=== PATIENT | female | born 1950 | race African-American/Black ===

== ENCOUNTER 2017-03-07 16:23 | Inpatient (IN) ==
[2017-03-07] MEDS ORDERED: LACTATED RINGERS 1,000 ML IV ONE (16:47)
--- NOTE | 2017-03-07 16:53 | EKG Report ---
Stationary ECG Study [facility] ER Test Date: 03/07/2017 4:42:35 PM Pat Name: LUIS FIERRO Department: Room: Gender: F Cargo Router: : 1950 Requested by: Zachery Sanford Order Number: [id number] Reading MD: EBEN SAENZ Intervals [place] Rate: 62 P: 75 [place]: 136 QRS: 8 QRSD: 98 T: 185 QT: 432 QTc: 437 Interpretive Statements SINUS RHYTHM at 62 bpm LEFT VENTRICULAR HYPERTROPHY AND ST-T CHANGE EARLY REPOLARIZATION Electronically Signed On 03-08-17 08:18:24 CDT by EBEN SAENZ [email or web address]
[2017-03-07 16:57] LABS: Basophils % 0.3 % (0.0-0.8); Eosinophils # 0.1 10*3/uL (0.0-0.87); Eosinophils % 1.2 % (0.00-10.9); Hematocrit 30.2 VOL% (35.7-47.0); Hemoglobin 10.1 GM/DL (12.0-16.0); Immature Granulocytes % 0.7 %; Immature Granulocytes Absolute 0.05 #; Lymphocytes # 1.2 10*3/uL (1.4-4.0); Lymphocytes % 16.7 % (21.3-54.2); Mean Corpuscular HGB Conc 33.4 GM/DL (32-36); Mean Corpuscular Hemoglobin 29 PG (27-34); Mean Corpuscular Volume 86.5 FL (87-102); Mean Platelet Volume 10.4 FL (9.6-12.0); Monocytes # 0.2 10*3/uL (0.11-0.8); Monocytes % 3.5 % (1.7-12.7); Neutrophils # 5.4 10*3/uL (1.4-7.4); Neutrophils % 77.6 % (38.7-73.9); Platelet Count 289 T/CUMM (130-400); Red Blood Count 3.49 MC/CUMM (3.8-5.5)
--- NOTE | 2017-03-07 17:02 | XRay Report ---
XR chest 1V portable Indication: Syncope. Chest one view: No comparison. Heart size is normal. Mild atheromatous disease the aorta is present. Mediastinal contours unremarkable. There is diffuse peribronchial thickening noted, especially centrally, and the lungs are hypoinflated with bibasilar atelectasis. No focal pneumonia is seen. Impression: Airways disease such as bronchitis or viral syndrome. Pulmonary hypoinflation and borderline cardiomegaly. PROCEDURE INTERPRETED AT [facility] DEPARTMENT OF RADIOLOGY Final Report Signed by: Trevon Ho M.D.
[2017-03-07 17:08] LABS: INR 1.1; PT Patient Result 11.4 SECS; Partial Thromboplastin Time 28.7 SECS (0-40)
--- NOTE | 2017-03-07 17:12 | CT Report ---
CT head/brain wo con Indication: Loss of consciousness. CT BRAIN WITHOUT CONTRAST DLP: 1012 mGy*cm. One or more of the following dose reduction techniques was used: Automated exposure control, adjustment of the mA and/or kV according the patient size, or use of iterative reconstruction techniques. Comparison: None. Date of admission: 03/07/2017. Technique: Axial noncontrast CT images of the brain were obtained. Findings: There is a 22 mm cystic structure within the right occipital lobe, possibly from prior infarct. Significant patchy periventricular white matter hypodensity is present diffusely and there is generalized atrophy with prominence of the ventricular system. No hemorrhage, mass or mass effect. Cortical pierre-white junction and basal ganglia structures are well-defined. No bone lesions. Visualized sinuses and mastoid air cells are clear. Impression: 1. No acute intracranial pathology. 2. Generalized atrophy with ventricular prominence, and patchy chronic small vessel ischemic change of the deep white matter. 3. 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 If no history of stroke, consider nonemergent MRI for more thorough characterization. PROCEDURE INTERPRETED AT [facility] DEPARTMENT OF RADIOLOGY Final Report Signed by: Trevon Ho M.D.
[2017-03-07 17:29] LABS: Blood Urea Nitrogen 83 MG/DL (7-18); Calcium 8.6 MG/DL (8.5-10.1); Glucose 136 MG/DL (74-106); Osmolality,Calculated 307.3 MOS/KG (273-304); Potassium 5.2 MMOL/L (3.5-5.1); Sodium 141 MMOL/L (136-145); Troponin I Only 0.018 NG/ML (0.00-0.045)
--- NOTE | 2017-03-07 18:37 | Emergency Department Note ---
Priyank Busby Brittany, am scribing for, and in the presence of, Zachery Sanford MD 16 :49. Juvenal Busby Hans, MD, personally performed the services described in this documentation, ascribed by Yue Yost in my presence, and it is both accurate and complete 837 . Arrival - Arrival Chief Complaint: Syncope Stated Complaint: Syncope ED Nursing Triage Note: Per report patient was urinating and passed out after she stood up. No other complaints Mode of Arrival: Stretcher Limitations: No Limitations Source: Patient, RN Notes Reviewed Time Seen by Provider: 03/07/17 16:39 - History of Present Illness HPI Narrative: Patient is a 66 y/o black female presenting to the ED by EMS for further evaluation s/p syncopal episode that occurred today. Patient reports that she had just urinated and upon standing she had a syncopal episode. She confirms LOC , but does not know exact duration she was out. She reports that at current she feels fine as long as she is lying down. Denies having any chest pain, BLE edema , N/V, hematemesis, melena, hematochezia, hematuria, urgency, frequency, or dysuria. Patient reports that she has been eating and drinking normally. PMHx of IDDM and TIA. On monitor patient is hypotensive with a blood pressure reading of 84/42 mmHg. Patient has no other complaint/pain. Onset (ago): minute(s) Consistency: constant Date of Last Menstrual Period: Hyst Allergies/Adverse Reactions: Allergies Allergy/AdvReac Type Severity Reaction Status Date / Time No Known Allergies Allergy Unverified 03/07/17 16:32 Review of System - Review of System 12 point system: reviewed and no additional remarkable complaints except as stated - Review of System Constitutional: Absent: chills, fever, weakness Eyes: Absent: vision change Head/Ears/Nose/Throat: Absent: nasal drainage, sore throat Respiratory: Absent: respiratory distress Cardiovascular: Present: syncope. Absent: chest pain Gastrointestinal: Absent: abdominal pain, nausea, vomiting, diarrhea, constipation, hematemesis, melena, hematochezia Genitourinary female: Absent: dysuria, frequency, hematuria, urgency Musculoskeletal: Absent: arm pain, back pain, leg pain, neck pain Skin: Absent: rash Neurological: Absent: headache Psychiatric: Absent: anxiety, depression Medical,Surgical,& Family Hx - Medical History Neurology: History of: TIA Endocrine: History of: Diabetes Mellitus (IDDM) - Social History Smoking Status: Unknown if ever smoked Frequency of Alcohol Use: None Type of Drug Use: None Exam Vital Signs: Vital Signs Temperature 98.9 F 03/07/17 16:41 Pulse Rate 71 03/07/17 18:30 Respiratory Rate 16 03/07/17 18:30 Blood Pressure 123/81 03/07/17 18:30 O2 Sat by Pulse Oximetry 100 03/07/17 18:30 - General General appearance: alert, in no apparent distress - Head Head exam: Present: atraumatic, normocephalic, normal inspection - Eye Eye exam: Present: normal appearance, PERRL, EOMI - ENT ENT exam: Present: mucous membranes dry. Absent: mucous membranes moist - Neck Neck exam: Present: normal inspection, full ROM, trachea midline - Chest Chest inspection: Present: normal inspection, symmetric chest wall rise - Respiratory Respiratory exam: Present: normal lung sounds bilaterally - Cardiovascular Cardiovascular exam: Present: regular rate, normal rhythm, normal heart sounds. Absent: murmur - Abdominal Exam Abdominal exam: Present: soft, normal bowel sounds. Absent: tenderness - Extremities Exam Extremities exam: Present: normal inspection. Absent: pedal edema - Back Exam Back exam: Present: normal inspection - Neurological Exam Neurological exam: Present: alert, oriented X3, CN II-XII intact. Absent: motor sensory deficit - Psychiatric Psychiatric exam: Present: normal affect, normal mood - Skin Skin exam: Present: warm, dry Course Course Narrative: This patient had a creatinine of 6.2 with a BUN around 85 and her bicarb was only 18. It was unclear how much of this is acute versus chronic but she is not hyperventilating which would suggest an acute component to the acidosis. She does have a history of kidney disease and she was positive on her tilt test in the ER. She was given IV fluids and I discussed her volume depletion with hospitalist who agreed to come see her for admission. Results - Labs CBC & BMP: 03/07/17 16:49 03/07/17 16:49 Lab Results: I have reviewed the patients labs Labs: Laboratory Tests 03/07/17 03/07/17 16:49 16:49 WBC 7.0 RBC 3.49 L Hgb 10.1 L Hct 30.2 L MCV 86.5 L Plt Count 289 Neut % (Auto) 77.6 H Lymph % (Auto) 16.7 L Lymph # (Auto) 1.2 L INR 1.1 PT Patient/Control Mix 11.4 Circ Anticoag PTT 28.7 Laboratory Tests 03/07/17 16:49 D-Dimer, Quantitative 1.5 Laboratory Tests 03/07/17 16:49 Sodium 141 Potassium 5.2 H Chloride 115 H Carbon Dioxide 18 L BUN 83 H Creatinine 6.30 H Glucose 136 H Calculated Osmolality 307.3 H Total Creatine Kinase 101 CK-MB (CK-2) 2.0 Troponin I 0.018 - Diagnostic Findings Procedure: Chest x-ray: report reviewed by me (Airways disease such as bronchitis or viral syndrome. Pulmonary hypoinflation and borderline cardiomegaly.), CT: report reviewed by me (CT Head: 1. No acute intracranial pathology. 2. Generalized atrophy with ventricular prominence, and patchy chronic small vessel ischemic change of the deep white matter. 3. 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 ) Disposition Clinical Impression: Syncope due to orthostatic hypotension Case discussed with: patient, patient's family Disposition: Still a Patient Condition: Stable Time of Disposition: 18:37
--- NOTE | 2017-03-07 18:49 | Hospitalist History & Physical ---
<Ervin Severino - Last Filed: 03/07/17 18:26> Assessment and Plan - Time spent with patient Time spent with patient: Greater than 30 minutes (1) Syncopal episodes Status: Acute Assessment and plan: Admit to telemetry for observation and further evaluation. Orthostatics. Echocardiogram. VQ scan. MRI of brain w/o contrast. BNP. Current Visit: Yes (2) Hypertension Status: Acute Assessment and plan: Continue home medications. Current Visit: Yes (3) Diabetes mellitus Status: Acute Assessment and plan: Accu-cheks ACHS. SSI per protocol. Continue home medications. Hgb A1c Current Visit: Yes (4) Dementia Status: Acute Current Visit: Yes History of Present Illness Chief complaint: Syncopal episode History of present illness: Ms. Medina is a 66 year old -Swiss female with a past medical history significant for diabetes mellitus, hypertension, CVA, [place] with stent placement presents to the ED today via EMS for further evaluation of syncope having onset yesterday. The patient and her daughter who is at bedside reports the patient had a syncopal episode yesterday on the front porch and again today in the bathroom after urination. Patient states that she did not hit her head but continued to feel weak and dazed for a period of time. The daughter states that given the patient's medical history, she called EMS for assistance and further evaluation here at the hospital. The patient does admit to a history of recreational drug usage but states that she has not smoked in over 3 years and she quit drinking several years prior to that. On exam, the patient is sitting up in bed in no apparent distress. She confirms syncope. However she denies headache, blurry vision, chest pain, palpitations, abdominal pain, nausea vomiting, numbness or tingling, bright red blood per rectum, hematuria, edema. Lab work reveals: WBC 7.0, hemoglobin 10.1, hematocrit 30.2, MCV 86.5, sodium 145, potassium 5.2, chloride 115, carbon dioxide 18, BUN 83, Cr 6.30, glucose 136. Cardiac enzymes are negative. BNP 60. Case been discussed with both Dr. Sanford and Dr. Perla and the patient will be admitted to the telemetry service for further evaluation. Patient is a full code. Home medications have been reviewed and reconciled. Home Medications Medication Instructions Recorded Confirmed Type Clopidogrel [Plavix] 75 mg PO DAILY 03/07/17 03/07/17 History Doxazosin Mesylate 1 mg PO DAILY 03/07/17 03/07/17 History Gabapentin 200 mg PO Q12H 03/07/17 03/07/17 History Insulin Detemir [Levemir FlexPen] 18 unit SUBCUT BEDTIME 03/07/17 03/07/17 History Memantine HCl [Namenda XR] 14 mg PO DAILY 03/07/17 03/07/17 History Metoprolol Succinate 100 mg PO BEDTIME 03/07/17 03/07/17 History amLODIPine [Norvasc] 5 mg PO DAILY 03/07/17 03/07/17 History Allergies Allergy/AdvReac Type Severity Reaction Status Date / Time No Known Allergies Allergy Unverified 03/07/17 16:32 Medical,Surgical,& Family Hx - Medical History Endocrine: History of: Diabetes Mellitus (IDDM) - Family History Family History: Reports;: Family Diabetes, Family Hypertension, Family Stroke - Social History Smoking Status: Former smoker Have you smoked in the last 12 months: No Frequency of Alcohol Use: None Type of Drug Use: None Marital Status: Single Lives With:: Children Functional capacity: independent ambulation 12 point system: reviewed and no additional remarkable complaints except as stated Exam - Constitutional Vitals: Period Temp Pulse Resp BP Sys/Jean Pulse Ox Last 24 Hr 98.9 F-98.9 F 60-68 14-18 68-166/34-75 98-100 Exam: General appearance: normal weight, no acute distress - Head Head exam: Present: normocephalic, atraumatic - Eye Eye exam: Present: EOMI. Absent: conjunctival injection, nystagmus Pupils: Present: KRISTEN, normal accommodation - ENT ENT exam: Present: normal exam, normal external ear exam - Neck Neck exam: Present: normal inspection. Absent: lymphadenopathy, tenderness, thyromegaly - Respiratory Respiratory exam: Present: clear to auscultation bilaterally. Absent: rales, rhonchi, wheezes - Cardiovascular Cardiovascular exam: Present: regular rate and rhythm. Absent: carotid bruit, gallop, rubs - GI/Abdominal GI/Abdominal exam: Present: normal bowel sounds. Absent: ascites, distended, mass - Extremities Exam Extremities exam: Present: normal inspection, normal capillary refill. Absent: edema - Back Exam Back exam: Absent: CVA tenderness (L), CVA tenderness (R) - Neurological Exam Neurological exam: Present: alert, oriented X3, CN II-XII intact, reflexes normal - Psychiatric Psychiatric exam: Present: normal affect, normal mood - Skin Skin exam: Present: normal color, warm, dry Results - Labs CBC & BMP: 03/07/17 16:49 03/07/17 16:49 Lab Results: I have reviewed the past 24 hour labs <Michelle Perla - Last Filed: 03/08/17 13:00> Assessment and Plan (1) Syncope due to orthostatic hypotension Status: Acute Assessment and plan: ns bolus and hydrate Current Visit: Yes (2) Ataxia Status: Acute Assessment and plan: mri of brain Current Visit: Yes (3) Dementia Status: Acute Assessment and plan: cont namenda Current Visit: Yes (4) Diabetes mellitus Status: Acute Assessment and plan: hgb A1c 7.3, cont insulin Current Visit: Yes History of Present Illness History of present illness: Ms. Medina is a 66 year old female seen and examined. agree with above. Medical,Surgical,& Family Hx - Medical History Other: History of: Miscellaneous Medical Problems (history of cocaine) - Surgical History Reproductive Surgeries: Surgical HX of;: Hysterectomy - Constitutional Constitutional: Present: headache(s), weight loss. Absent: fever(s) - EENT Eyes: Present: blurry vision, loss of vision (left eye blind). Absent: diplopia Ears: Absent: decreased hearing, ear discharge Nose, mouth and throat: Present: headache(s). Absent: sore throat - Cardiovascular Cardiovascular: Absent: chest pain at rest, dyspnea - Respiratory Respiratory: Absent: cough, dyspnea, dyspnea on exertion - Gastrointestinal Gastrointestinal: Absent: constipation, diarrhea, nausea, vomiting - Genitourinary Genitourinary: Absent: difficulty urinating, dysuria - Neurological Neurological: Present: headache(s), memory loss, syncope. Absent: confusion - Psychiatric Psychiatric: Present: anxiety, depression - Endocrine Endocrine: Present: cold intolerance, fatigue - Hematologic/Lymphatic Hematologic/Lymphatic: Absent: easy bleeding, easy bruising Exam - Constitutional Vitals: Period Temp Pulse Resp BP Sys/Jean Pulse Ox Last 24 Hr 96.7 F-99.8 F 60-81 14-20 68-166/34-81 92-100 Results - Labs CBC & BMP: 03/08/17 03:19 03/08/17 03:19 - Diagnostic Findings Procedure: Chest x-ray: report reviewed by me (bronchitis), X-ray: report reviewed by me (v/Q no PE )
--- NOTE | 2017-03-07 20:06 | Nuclear Medicine Report ---
NM lung scan vent and per Indication: Shortness of breath. Comparison: Chest x-ray 03/07/2017. Technique: Ventilation scan of the lungs was performed. 40 mCi of technetium 99m labeled DTPA was administered in aerosolized form, following which planar imaging in the anterior, FAROESE, and CARBALLO projections was accomplished. Following this, 5 mCi technetium 99m labeled MAA was injected intravenously and perfusion scanning of the chest was performed in the anterior, FAROESE, and CARBALLO projections. Findings: No ventilation and no perfusion defects are demonstrated. Impression: 1. Normal study. The normal perfusion component essentially excludes pulmonary artery embolus. 03/07/2017 7:59 PM PROCEDURE INTERPRETED AT [facility] DEPARTMENT OF RADIOLOGY Final Report Signed by: Dr. Viral Ayala
[2017-03-07] MEDS ORDERED: ZALEPLON 5 MG CAPSULE PO PRN (20:18)
[2017-03-07] MEDS ORDERED: ENOXAPARIN 30 MG/0.3 ML SYRINGE SUBCUT SCH (20:18)
[2017-03-07] MEDS ORDERED: ONDANSETRON 4 MG/2 ML VIAL IV PRN (20:18)
[2017-03-07] MEDS ORDERED: GLUCAGON 1 MG VIAL IM PRN (20:18)
[2017-03-07] MEDS ORDERED: BISACODYL 5 MG TABLET PO PRN (20:18)
[2017-03-07] MEDS ORDERED: DEXTROSE 50% 25 GM/50 ML VIAL IV PRN (20:18)
[2017-03-07] MEDS ORDERED: ACETAMINOPHEN 325 MG TABLET PO PRN (20:18)
[2017-03-07 20:46] LABS: Free T4 (Free Thyroxine) 1.02 NG/DL (0.76-1.46); Thyroid Stimulating Hormone 1.16 uIU/ml (0.358-3.74)
--- NOTE | 2017-03-07 20:47 | EKG Report ---
Stationary ECG Study [facility] Test Date: 03/07/2017 8:44:44 PM Pat Name: LUIS FIERRO Department: Room: 286 Gender: F Cell Room Operator: : 1950 Requested by: Michelle Chisholm Order Number: [id number] Reading MD: EBEN SAENZ Intervals [place] Rate: 66 P: 74 [place]: 138 QRS: 0 QRSD: 105 T: 155 QT: 432 QTc: 445 Interpretive Statements SINUS RHYTHM at 66 bpm LEFT VENTRICULAR HYPERTROPHY WITH REPOLARIZATION ABNORMALITY Electronically Signed On 03-08-17 08:20:08 CDT by EBEN SAENZ [id number]
[2017-03-07] MEDS ORDERED: INSULIN GLARGINE 100 UNIT/ML SUBCUT SCH (21:00)
[2017-03-07] MEDS: SODIUM CHLORIDE 0.9% 1,000 ML IV SCH (21:42)
[2017-03-07] MEDS: INSULIN REGULAR 100 UNIT/ML SUBCUT SCH (21:43)
[2017-03-07] MEDS: GABAPENTIN 100 MG CAPSULE PO SCH (21:43)
[2017-03-08 05:11] LABS: Basophils % 0.3 % (0.0-0.8); Eosinophils # 0.1 10*3/uL (0.0-0.87); Eosinophils % 1.8 % (0.00-10.9); Hematocrit 25.8 VOL% (35.7-47.0); Hemoglobin 8.5 GM/DL (12.0-16.0); Immature Granulocytes % 0.5 %; Immature Granulocytes Absolute 0.03 #; Lymphocytes # 1.7 10*3/uL (1.4-4.0); Lymphocytes % 27.8 % (21.3-54.2); Mean Corpuscular HGB Conc 32.9 GM/DL (32-36); Mean Corpuscular Hemoglobin 28 PG (27-34); Mean Corpuscular Volume 85.4 FL (87-102); Mean Platelet Volume 11.1 FL (9.6-12.0); Monocytes # 0.5 10*3/uL (0.11-0.8); Monocytes % 8.1 % (1.7-12.7); Neutrophils # 3.9 10*3/uL (1.4-7.4); Neutrophils % 61.5 % (38.7-73.9); Platelet Count 265 T/CUMM (130-400); Red Blood Count 3.02 MC/CUMM (3.8-5.5); Red Cell Distribution Width 13.8 % (9.3-17.3); White Blood Count 6.3 T/CUMM (4-12)
[2017-03-08 06:01] LABS: Calcium 7.9 MG/DL (8.5-10.1); Osmolality,Calculated 304.3 MOS/KG (273-304); Potassium 4.8 MMOL/L (3.5-5.1); Risk Ratio 2.72; VLDL CHOLESTEROL 20.2 MG/DL
[2017-03-08] MEDS: SODIUM CHLORIDE 0.9% 1,000 ML IV SCH ×3 (06:47→15:26)
--- NOTE | 2017-03-08 09:05 | EKG Report ---
Stationary ECG Study [facility] Test Date: 03/08/2017 1:58:47 AM Pat Name: LUIS FIERRO Department: Room: 286 Gender: F Shop Hand: : 1950 Requested by: Michelle Chisholm Order Number: [id number] Reading MD: EBEN SAENZ Intervals [place] Rate: 63 P: 81 [place]: 140 QRS: 4 QRSD: 108 T: 171 QT: 423 QTc: 431 Interpretive Statements SINUS RHYTHM at 63 bpm EARLY REPOLARIZATION Electronically Signed On 03-08-17 12:50:54 CDT by EBEN SAENZ [email or web address]
[2017-03-08] MEDS: INSULIN REGULAR 100 UNIT/ML SUBCUT SCH ×4 (09:56→20:50)
[2017-03-08] MEDS: PANTOPRAZOLE 40 MG TABLET PO SCH (09:57)
[2017-03-08] MEDS: GABAPENTIN 100 MG CAPSULE PO SCH ×2 (09:57→20:49)
[2017-03-08] MEDS: CLOPIDOGREL 75 MG TABLET PO SCH (09:57)
[2017-03-08] MEDS: MEMANTINE 5 MG TABLET PO SCH ×2 (09:57→20:49)
[2017-03-08] MEDS ORDERED: SODIUM CHLORIDE 0.9% 500 ML IV ONE (14:37)
--- NOTE | 2017-03-08 14:39 | Hospitalist Progress Note ---
Assessment and Plan (1) Syncope due to orthostatic hypotension Status: Acute Assessment and plan: ns bolus and but change fluids to 1/2 ns with bicarb at 150 ml/hr Current Visit: Yes (2) Ataxia Status: Acute Assessment and plan: mri of brain cancelled as no information on her heart stent, most likely due to orthostasis, but will defer to Dr. Ponce Current Visit: Yes (3) Dementia Status: Acute Assessment and plan: cont namenda Current Visit: Yes (4) Diabetes mellitus Status: Acute Assessment and plan: hgb A1c 7.3, increase insulin Current Visit: Yes (5) Anemia Status: Acute Assessment and plan: stool for occult blood, protonix Current Visit: Yes (6) Acute renal failure Status: Acute Assessment and plan: renal us, consult Dr Murray, cont aggressive hydration. Current Visit: Yes Hospitalist: Subjective Interval history: patient feels better today. Patient had a stent several years back but we cannot obtain records. MRI will not do the head without knowing what type of stent she previously had. We will cancel the test. She was extremely orthostatic today with a blood pressure that went from 134-112. Exam - Constitutional Vitals: Period Temp Pulse Resp BP Sys/Jean Pulse Ox Last 24 Hr 96.7 F-99.8 F 60-81 14-20 68-166/34-81 92-100 Exam: Heart Rate-[RRR] Lungs-[CTAB] GI-[+bs soft, NT] Ext-[no edema] Neuro [Motor 5/5], [alert and oriented times 3] psych [normal mood and affect] General [no acute distress] Results - Labs CBC & BMP: 03/08/17 03:19 03/08/17 03:19 Lab Results: I have reviewed the past 24 hour labs
[2017-03-08] MEDS ORDERED: INSULIN GLARGINE 100 UNIT/ML SUBCUT SCH (14:45)
--- NOTE | 2017-03-08 15:47 | Neurology Consult Note ---
History of Present Illness History of present illness: Ms. Medina is a 66 year old right-handed -Thai lady with a past medical history significant for diabetes mellitus, hypertension, CVA, [place] with stent placement admitted to the hospital with syncopal episode 2. The patient and her daughter who is at bedside reports the patient had a syncopal episode before yesterday on the front porch and then again yesterday in the bathroom after urination. Patient states that she did not hit her head but continued to feel weak and dazed for a period of time. No generalized tonic-clonic activity reported. No tongue biting or urinary incontinence reported. The patient does admit to a history of recreational drug usage but states that she has not smoked in over 3 years and she quit drinking several years prior to that. She seems to be doing much better now and back to her baseline. CT of the head revealed no acute abnormalities. She was found to have significantly high BUN and creatinine. Patient is from [place] and recently moved to [place]. She does not have a primary care physician as yet. Home Medications Medication Instructions Recorded Confirmed Type Clopidogrel [Plavix] 75 mg PO DAILY 03/07/17 03/07/17 History Doxazosin Mesylate 1 mg PO DAILY 03/07/17 03/07/17 History Gabapentin 200 mg PO Q12H 03/07/17 03/07/17 History Insulin Detemir [Levemir FlexPen] 18 unit SUBCUT BEDTIME 03/07/17 03/07/17 History Memantine HCl [Namenda XR] 14 mg PO DAILY 03/07/17 03/07/17 History Metoprolol Succinate 100 mg PO BEDTIME 03/07/17 03/07/17 History amLODIPine [Norvasc] 5 mg PO DAILY 03/07/17 03/07/17 History Allergies Allergy/AdvReac Type Severity Reaction Status Date / Time No Known Allergies Allergy Unverified 03/07/17 16:32 12 point system: reviewed and no additional remarkable complaints except as stated Medical,Surgical,& Family Hx - Medical History Neurology: History of: TIA Endocrine: History of: Diabetes Mellitus (IDDM) Other: History of: Miscellaneous Medical Problems (history of cocaine) - Surgical History Reproductive Surgeries: Surgical HX of;: Hysterectomy - Family History Family History: Reports;: Family Diabetes, Family Hypertension, Family Stroke - Social History Smoking Status: Former smoker Frequency of Alcohol Use: None Type of Drug Use: None Exam - Constitutional Vitals: Period Temp Pulse Resp BP Sys/Jean Pulse Ox Last 24 Hr 96.7 F-99.8 F 60-81 14-20 68-166/34-81 92-100 Exam: GENERAL: Patient is in no acute distress. NECK: Neck is supple. There is no JVD. No carotid bruits present. No thyroid masses. CVS: First and second heart sounds are normal. There is no S3 present. Regular rate and rhythm. RESPIRATORY: Lungs are clear to auscultation without any rales or rhonchi. ABDOMEN: Soft and non-tender. Bowel sounds are present. There is no hepatosplenomegaly. EXT: There is no palpable edema. Peripheral pulses are present. Skin: No rashes Central Nervous system: General: Alert, awake and Oriented x 3 Speech: Fluent Comprehension: Intact and normal Facial expressions: Normal Cranial Nerves: CN1/Olfactory: Normal CN II/ Optic: Normal, Visual Perdomo unreliable CN III, and : KRISTEN & EOMI CN V: Normal & intact CN VII: face is symmetric CNVIII: Normal CN XI/X/XI/XII: Intact and Normal Motor: Bulk and Tone is normal. Strength in the right 5/5 Strength in the left 5/5 Sensory: Grossly intact for all the modalities of PP, LT and temp sense Reflexes: 1+ and symmetrical Cerebellar function: Normal finger to nose and heel to herrera testing. Toes: Equivocal Gait: Able to get up and walk Results - Labs CBC & BMP: 03/08/17 03:19 03/08/17 03:19 Assessment and Plan (1) Syncopal episodes Status: Acute Assessment and plan: This is likely metabolic in etiology given her significant renal insufficiency. No evidence of stroke, TIAs, epilepsy or seizures. We will go ahead and check urine for drug screen and do EEG. Thank you for the consult Current Visit: Yes
--- NOTE | 2017-03-08 15:48 | Ultrasound Report ---
US renal Bilateral Indication: Hydronephrosis Comparison: None. Technique: Using a transcutaneous probe, multiple grayscale and color Doppler images of the right and left kidney were captured and stored. Findings: The right kidney measures 8 cm in length. The left kidney measures 8 cm in length. Round to oval hypoechoic structure through transmission upper pole right kidney measures 1.1 x 1.1 x 1.3 cm is compatible with cyst. Renal calyces on the left are minimally prominent. Round to oval anechoic structure with through transmission measuring 1.1 x 1.0 x 0.9 cm compatible with cyst is present. Impression: 1. Calyceal system of the left kidney is minimally prominent. 2. Bilateral renal cysts. 03/08/2017 3:44 PM PROCEDURE INTERPRETED AT [facility] DEPARTMENT OF RADIOLOGY Final Report Signed by: Dr. Viral Ayala
[2017-03-08] MEDS: SODIUM ACETATE 50 MEQ in SODIUM CHLORIDE 0.45% 1,000 ML IV SCH (16:22)
[2017-03-08 17:10] LABS: Apearance,Urine Slightly Hazy (Clear); Bacteria,Urine Occasional /HPF (Few); Bilirubin,Urine Negative (Negative); Blood, Urine Small mg/dL (Negative); Glucose,Urine (UA) 50 mg/dL (Negative); Ketones,Urine Negative (Negative); Nitrite,Urine Negative (Negative); Protein,Urine 100 MG/DL; Urine Color Yellow (Yellow); Urine Specific Gravity 1.009 (1.001-1.035); Urine Urobilinogen < 2.0 EU/DL (0.2-1.0)
[2017-03-08 17:30] LABS: Barbiturates Screen,Urine Negative (Negative); Benzodiazepines Screen,Urine Negative (Negative); Cannabinoid Screen,Urine Negative (Negative); Opiate Screen,Urine Negative (Negative); Phencyclidine Screen,Urine Negative (Negative)
--- NOTE | 2017-03-08 18:57 | Nephrology Consult Note ---
History of Present Illness Chief complaint: Elevated creatinine and BUN History of present illness: Ms. Medina is a 66 year old female with history of hypertension recently moved from the [place] area and had a syncopal episode. Patient had a CT head that was unremarkable but was noted to have an elevated serum creatinine. Nephrology is been consulted for renal issues. Patient gives no history of seen a kidney doctor before. She states she has used intake medical medications on occasion but not regularly. No history of dysuria or hematuria. At present patient's been voiding acceptable. However, serum creatinine is noted to be 6 today. Renal ultrasound showed no abnormalities no hydronephrosis. Home Medications Medication Instructions Recorded Confirmed Type Clopidogrel [Plavix] 75 mg PO DAILY 03/07/17 03/07/17 History Doxazosin Mesylate 1 mg PO DAILY 03/07/17 03/07/17 History Gabapentin 200 mg PO Q12H 03/07/17 03/07/17 History Insulin Detemir [Levemir FlexPen] 18 unit SUBCUT BEDTIME 03/07/17 03/07/17 History Memantine HCl [Namenda XR] 14 mg PO DAILY 03/07/17 03/07/17 History Metoprolol Succinate 100 mg PO BEDTIME 03/07/17 03/07/17 History amLODIPine [Norvasc] 5 mg PO DAILY 03/07/17 03/07/17 History Allergies Allergy/AdvReac Type Severity Reaction Status Date / Time No Known Allergies Allergy Unverified 03/07/17 16:32 Medical,Surgical,& Family Hx - Medical History Neurology: History of: TIA Endocrine: History of: Diabetes Mellitus (IDDM) Other: History of: Miscellaneous Medical Problems (history of cocaine) - Surgical History Reproductive Surgeries: Surgical HX of;: Hysterectomy - Family History Family History: Reports;: Family Diabetes, Family Hypertension, Family Stroke - Social History Smoking Status: Former smoker Frequency of Alcohol Use: None Type of Drug Use: None Review of Systems Constitutional: no fatigue, no fever(s) Genitourinary: no dysuria, no flank pain, no hematuria Exam - Vital Signs Vital signs: Period Temp Pulse Resp BP Sys/Jean Pulse Ox Last 24 Hr 96.7 F-99.8 F 71-81 16-20 98-161/55-70 92-100 - General Appearance General appearance: well-developed, well-nourished EENT: ATNC Neck: supple Respiratory: clear Cardiology: no edema, regular rate, regular rhythm Gastrointestinal: normoactive bowel sounds, no tenderness, no guarding Neurologic: alert and oriented x3 Musculoskeletal: no clubbing Psychiatric: mood/affect appropriate Results - Labs CBC & BMP: 03/08/17 03:19 03/08/17 03:19 Assessment and Plan (1) Hypertension Status: Chronic Current Visit: Yes Qualifiers: Hypertension type: essential hypertension Qualified Code(s): I10 - Essential (primary) hypertension (2) Diabetes mellitus Status: Chronic Current Visit: Yes Qualifiers: Diabetes mellitus type: type 2 Chronic kidney disease stage: stage 5, not on chronic dialysis (3) Syncope due to orthostatic hypotension Status: Resolved Current Visit: Yes (4) Anemia Status: Chronic Current Visit: Yes (5) Acute renal failure Status: Acute Assessment and plan: Acute versus chronic renal failure. Will check a BMP in the morning. We will also check a phosphorus level in morning. Strict I's and O's. Avoid nephrotoxic agents. Can probably remove Ramos catheter on tomorrow. Continue with IV fluids. Current Visit: Yes
[2017-03-09] MEDS: SODIUM ACETATE 50 MEQ in SODIUM CHLORIDE 0.45% 1,000 ML IV SCH ×4 (00:09→19:20)
[2017-03-09 05:19] LABS: Basophils % 0.3 % (0.0-0.8); Eosinophils # 0.2 10*3/uL (0.0-0.87); Eosinophils % 2.9 % (0.00-10.9); Hematocrit 22.7 VOL% (35.7-47.0); Hemoglobin 7.7 GM/DL (12.0-16.0); Immature Granulocytes % 0.7 %; Immature Granulocytes Absolute 0.05 #; Lymphocytes % 28.1 % (21.3-54.2); Mean Corpuscular HGB Conc 33.9 GM/DL (32-36); Mean Corpuscular Hemoglobin 29 PG (27-34); Mean Corpuscular Volume 85.3 FL (87-102); Monocytes # 0.5 10*3/uL (0.11-0.8); Monocytes % 7.3 % (1.7-12.7); Neutrophils # 4.3 10*3/uL (1.4-7.4); Neutrophils % 60.7 % (38.7-73.9); Platelet Count 235 T/CUMM (130-400); Red Blood Count 2.66 MC/CUMM (3.8-5.5); White Blood Count 7.1 T/CUMM (4-12)
[2017-03-09 05:56] LABS: Calcium 7.8 MG/DL (8.5-10.1); Osmolality,Calculated 304.8 MOS/KG (273-304); Potassium 4.8 MMOL/L (3.5-5.1)
[2017-03-09 06:17] LABS: Hypochromasia 1+; Ovalocytes Slight; Platelet Estimate Adequate
[2017-03-09] MEDS: GABAPENTIN 100 MG CAPSULE PO SCH ×2 (08:36→21:30)
[2017-03-09] MEDS: PANTOPRAZOLE 40 MG TABLET PO SCH ×2 (08:36→21:30)
[2017-03-09] MEDS: CLOPIDOGREL 75 MG TABLET PO SCH (08:36)
[2017-03-09] MEDS: MEMANTINE 5 MG TABLET PO SCH ×2 (08:36→21:30)
[2017-03-09] MEDS: INSULIN REGULAR 100 UNIT/ML SUBCUT SCH ×4 (08:41→21:29)
[2017-03-09] MEDS ORDERED: SODIUM CHLORIDE 0.9% 250 ML IV PRN (10:11)
--- NOTE | 2017-03-09 11:33 | Gastrointestinal Consult Note ---
<Shavon Freitas - Last Filed: 03/09/17 11:30> Assessment and Plan (1) Anemia Status: Chronic Assessment and plan: 03/09-admitted with syncopal episodes however noted to have downward trend of H&H from admission. Admitting H&H 06/06 now trended down to 02/26 and absence of overt bleeding. Stools negative for occult blood. BUN/creatinine ratio unremarkable at 12. Elevated creatinine of 5.5. No known prior GI history. On Plavix therapy for history of cardiac stents greater than 20 years ago. Last dose today however on hold at this time. Further plan an addendum to followed by Dr. Kiran. Current Visit: Yes History of Present Illness Chief complaint: Anemia History of present illness: Ms. Medina is a 66 year old female who was admitted to the hospital 03/07 for onset of syncopal episode. Patient is a poor historian therefore information is obtained from chart review. She has a prior history of hypertension, diabetes mellitus, and dementia. Her grandchildren are present during visit however due to their young age and they are unable to contribute information. Patient reportedly was in her usual state of health until the day of admission when she was at [employer] and began not feeling well. Shortly after that she had a reported syncopal episode and fell out of the chair. Patient has recollection of this episode. She does not recall hitting her head at that time as well. Patient is unable to recall any prior symptoms before her syncopal episode. Pt states she does not recall any history of PUD or GI bleed in the past. She denies any recent weight loss, abdominal pain, nausea or vomiting. She denies any melena or hematochezia. Denies any NSAID use. She states that she recently moved here from [place] to live with her daughter. She is noted to have history of cardiac stents that were placed over 20 years ago however remains on Plavix at this time. Last dose was given today however this is now on hold. Patient does recall having an EGD in [place] but cannot recall the findings or the reasons for this. She denies any dysphagia or GERD. She was noted on admission to have an H/H of 06/06 however she was fluid resusitated due to orthostatic hypotension. She has trended down since admission now at in absence of overt bleeding. Her stools are negative for occult blood as well. She is noted to have a history of cocaine use as well as alcohol and tobacco use in the past with no recent use acknowledged. Home Medications Medication Instructions Recorded Confirmed Type Clopidogrel [Plavix] 75 mg PO DAILY 03/07/17 03/07/17 History Doxazosin Mesylate 1 mg PO DAILY 03/07/17 03/07/17 History Gabapentin 200 mg PO Q12H 03/07/17 03/07/17 History Insulin Detemir [Levemir FlexPen] 18 unit SUBCUT BEDTIME 03/07/17 03/07/17 History Memantine HCl [Namenda XR] 14 mg PO DAILY 03/07/17 03/07/17 History Metoprolol Succinate 100 mg PO BEDTIME 03/07/17 03/07/17 History amLODIPine [Norvasc] 5 mg PO DAILY 03/07/17 03/07/17 History Allergies Allergy/AdvReac Type Severity Reaction Status Date / Time No Known Allergies Allergy Unverified 03/07/17 16:32 Medical,Surgical,& Family Hx - Medical History Neurology: History of: TIA Endocrine: History of: Diabetes Mellitus (IDDM) Other: History of: Miscellaneous Medical Problems (history of cocaine) - Surgical History Reproductive Surgeries: Surgical HX of;: Hysterectomy - Family History Family History: Reports;: Family Diabetes, Family Hypertension, Family Stroke - Social History Smoking Status: Former smoker Frequency of Alcohol Use: None Type of Drug Use: None ROS unobtainable: due to mental status Exam - Constitutional Vitals: Period Temp Pulse Resp BP Sys/Jean Pulse Ox Last 24 Hr 96.7 F-98.9 F 67-83 18-20 101-164/52-81 96-100 General appearance: normal weight, no acute distress - Head Head exam: Present: normal inspection, normocephalic - Eye Eye exam: Present: other (Lids and conjunctivae are unremarkable). Absent: scleral icterus - ENT ENT exam: Present: normal exam, normal oropharynx - Neck Neck exam: Present: normal inspection - Respiratory Respiratory exam: Present: clear to auscultation bilaterally. Absent: rales, rhonchi, wheezes - Cardiovascular Cardiovascular exam: Present: regular rate and rhythm. Absent: diastolic murmur , JVD, systolic murmur - GI/Abdominal GI/Abdominal exam: Present: normal bowel sounds, soft. Absent: ascites, distended, mass, organomegaly, tenderness - Extremities Exam Extremities exam: Present: normal inspection, full ROM - Back Exam Back exam: Present: normal inspection - Neurological Exam Neurological exam: Present: alert, altered - Psychiatric Psychiatric exam: Present: normal affect, normal mood - Skin Skin exam: Present: normal color, warm, dry Results - Labs CBC & BMP: 03/09/17 04:00 03/09/17 04:00 Lab Results: I have reviewed the past 24 hour labs Specialty Discharge - Follow Up or Referrals Follow up with: Manuel Ponce MD [Physician] - 1 Month <Smith Kiran - Last Filed: 03/09/17 19:21> History of Present Illness History of present illness: Ms. Medina is a 66 year old female Exam - Constitutional Vitals: Period Temp Pulse Resp BP Sys/Jean Pulse Ox Last 24 Hr 75 F-99.2 F 67-84 18-20 101-195/52-89 96-100 Results - Labs CBC & BMP: 03/09/17 17:36 03/09/17 04:00
--- NOTE | 2017-03-09 11:42 | Hospitalist Progress Note ---
Assessment and Plan (1) Syncope due to orthostatic hypotension Status: Resolved Assessment and plan: Improving with IV fluids. Current Visit: Yes (2) Ataxia Status: Acute Assessment and plan: Dr. Ponce is seen her and recommended an EEG. Urine drug screen is negative. Current Visit: Yes (3) Dementia Status: Acute Assessment and plan: cont namenda Current Visit: Yes (4) Diabetes mellitus Status: Chronic Assessment and plan: Blood sugar still not well controlled. Blood sugar slightly low today. Decrease Lantus at bedtime to 17 units at bedtime Current Visit: Yes (5) Anemia Status: Chronic Assessment and plan: stool for occult blood negative, continue Protonix, will still have GI give input. Patient will receive 2 units of packed red blood cells. Current Visit: Yes (6) Acute renal failure Status: Acute Assessment and plan: renal us suggestive of medical renal disease continue hydration Current Visit: Yes Hospitalist: Subjective Interval history: Hemoglobin is trending down today. I will give her 2 units packed red blood cells. I have asked both GI and renal to see her. Her creatinine is down to 5.5. Dr. Ponce has seen her and recommends an EEG. We will have to remove her wig in order to access the area we need for the EEG. Stool was negative for blood. Plavix now on hold. Exam - Constitutional Vitals: Period Temp Pulse Resp BP Sys/Jean Pulse Ox Last 24 Hr 96.7 F-98.9 F 67-83 18-20 101-164/52-81 96-100 Exam: Heart Rate-[RRR] Lungs-[CTAB] GI-[+bs soft, NT] Ext-[no edema] Neuro [Motor 5/5], [alert and oriented times 3] psych [normal mood and affect] General [no acute distress] Results - Labs CBC & BMP: 03/09/17 04:00 03/09/17 04:00 Lab Results: I have reviewed the past 24 hour labs - Diagnostic Findings Procedure: Ultrasound: report reviewed by me (Medical renal disease consistent with chronic kidney failure.)
--- NOTE | 2017-03-09 15:03 | Neurology Progress Note ---
Neurology - PN : Subjective Interval history: Patient seems to be doing okay. No new problems reported. She is back to her baseline. EEG cannot be done at this time due to some technical problems. Patient and family wants to get it done as an outpatient. Exam (Progress Note) - Constitutional Vitals: Period Temp Pulse Resp BP Sys/Jean Pulse Ox Last 24 Hr 75 F-99.2 F 67-84 18-20 101-190/52-89 96-100 Exam: GENERAL: Patient is in no acute distress. NECK: Neck is supple. There is no JVD. No carotid bruits present. No thyroid masses. CVS: First and second heart sounds are normal. There is no S3 present. Regular rate and rhythm. RESPIRATORY: Lungs are clear to auscultation without any rales or rhonchi. ABDOMEN: Soft and non-tender. Bowel sounds are present. There is no hepatosplenomegaly. EXT: There is no palpable edema. Peripheral pulses are present. Skin: No rashes Central Nervous system: General: Alert, awake and Oriented x 3 Speech: Fluent Comprehension: Intact and normal Facial expressions: Normal Cranial Nerves: CN1/Olfactory: Normal CN II/ Optic: Normal, Visual Perdomo unreliable CN III, and : KRISTEN & EOMI CN V: Normal & intact CN VII: face is symmetric CNVIII: Normal CN XI/X/XI/XII: Intact and Normal Motor: Bulk and Tone is normal. Strength in the right 5/5 Strength in the left 5/5 Sensory: Grossly intact for all the modalities of PP, LT and temp sense Reflexes: 1+ and symmetrical Cerebellar function: Normal finger to nose and heel to herrera testing. Toes: Equivocal Gait: Able to get up and walk Results - Labs CBC & BMP: 03/09/17 04:00 03/09/17 04:00 Assessment and Plan (1) Syncopal episodes Status: Acute Assessment and plan: This is likely metabolic in etiology given her significant renal insufficiency. No evidence of stroke, TIAs, epilepsy or seizures. No further intervention from neuro standpoint Sign off please call as needed Follow-up in 4 weeks Current Visit: Yes Specialty Discharge - Follow Up or Referrals Follow up with: Manuel Ponce MD [Physician] - 1 Month
[2017-03-09 17:43] LABS: Hematocrit 30.7 VOL% (35.7-47.0); Hemoglobin 10.7 GM/DL (12.0-16.0)
--- NOTE | 2017-03-09 19:13 | Nephrology Progress Note ---
Nephrology - PN: Subj Interval history: Patient is resting comfortably no acute changes. Serum creatinine is trending down. She did receive blood today. And decrease IV fluids to 50 cc an hour. BMP in a.m. Exam (PN)-Nephrology - Vital Signs Vital signs: Period Temp Pulse Resp BP Sys/Jean Pulse Ox Last 24 Hr 75 F-99.2 F 67-84 18-20 101-195/52-89 96-100 - General Appearance General appearance: well-developed, well-nourished EENT: ATNC Neck: supple Respiratory: clear Cardiology: no edema, regular rate, regular rhythm Gastrointestinal: normoactive bowel sounds, no tenderness Neurologic: alert and oriented x3 Musculoskeletal: no clubbing Psychiatric: mood/affect appropriate - Lab 03/09/17 17:36 03/09/17 04:00 Most recent lab results Calcium 7.8 MG/DL (8.5-10.1) L 03/09/17 04:00 Phosphorus 3.8 MG/DL (2.5-4.9) 03/09/17 04:00 Magnesium 1.9 MG/DL (1.8-2.4) 03/07/17 20:28 Assessment and Plan (1) Hypertension Status: Chronic Current Visit: Yes Qualifiers: Hypertension type: essential hypertension Qualified Code(s): I10 - Essential (primary) hypertension (2) Diabetes mellitus Status: Chronic Current Visit: Yes Qualifiers: Diabetes mellitus type: type 2 Chronic kidney disease stage: stage 5, not on chronic dialysis (3) Syncope due to orthostatic hypotension Status: Resolved Current Visit: Yes (4) Anemia Status: Chronic Current Visit: Yes (5) Acute renal failure Status: Acute Assessment and plan: Acute versus chronic renal failure. Will check a BMP in the morning. We will also check a phosphorus level in morning. Strict I's and O's. Avoid nephrotoxic agents. Continue with IV fluids at 50 cc an hour. Current Visit: Yes Specialty Discharge - Follow Up or Referrals Follow up with: Manuel Ponce MD [Physician] - 1 Month
[2017-03-09] MEDS: INSULIN GLARGINE 100 UNIT/ML SUBCUT SCH (21:30)
[2017-03-10] MEDS: SODIUM ACETATE 50 MEQ in SODIUM CHLORIDE 0.45% 1,000 ML IV SCH (04:38)
[2017-03-10 04:44] LABS: Basophils % 0.4 % (0.0-0.8); Eosinophils # 0.3 10*3/uL (0.0-0.87); Eosinophils % 3.1 % (0.00-10.9); Hematocrit 30.4 VOL% (35.7-47.0); Hemoglobin 10.4 GM/DL (12.0-16.0); Immature Granulocytes % 0.7 %; Immature Granulocytes Absolute 0.07 #; Lymphocytes # 1.8 10*3/uL (1.4-4.0); Lymphocytes % 18.9 % (21.3-54.2); Mean Corpuscular HGB Conc 34.2 GM/DL (32-36); Mean Corpuscular Hemoglobin 29 PG (27-34); Mean Corpuscular Volume 83.3 FL (87-102); Mean Platelet Volume 10.8 FL (9.6-12.0); Monocytes # 0.8 10*3/uL (0.11-0.8); Monocytes % 8.4 % (1.7-12.7); Neutrophils # 6.7 10*3/uL (1.4-7.4); Neutrophils % 68.5 % (38.7-73.9); Platelet Count 232 T/CUMM (130-400); Red Cell Distribution Width 14.2 % (9.3-17.3); White Blood Count 9.7 T/CUMM (4-12)
[2017-03-10 05:06] LABS: Red Blood Count 3.65 MC/CUMM (3.8-5.5)
[2017-03-10 05:22] LABS: Calcium 8.2 MG/DL (8.5-10.1); Osmolality,Calculated 307.8 MOS/KG (273-304); Potassium 4.6 MMOL/L (3.5-5.1)
[2017-03-10] MEDS: INSULIN REGULAR 100 UNIT/ML SUBCUT SCH ×4 (08:05→21:54)
[2017-03-10] MEDS: MEMANTINE 5 MG TABLET PO SCH ×2 (09:17→21:53)
[2017-03-10] MEDS: PANTOPRAZOLE 40 MG TABLET PO SCH ×2 (09:17→21:54)
[2017-03-10] MEDS: GABAPENTIN 100 MG CAPSULE PO SCH ×2 (09:17→21:53)
[2017-03-10] MEDS ORDERED: hydrALAZINE 20 MG/1 ML VIAL IV ONE ×2 (10:41→11:00)
[2017-03-10] MEDS ORDERED: amLODIPine 5 MG TABLET PO SCH (11:00)
[2017-03-10] MEDS: CARVEDILOL 6.25 MG TABLET PO SCH ×2 (11:02→21:53)
[2017-03-10] MEDS ORDERED: amLODIPine 5 MG TABLET PO ONE (13:17)
--- NOTE | 2017-03-10 13:17 | Hospitalist Progress Note ---
Assessment and Plan (1) Syncope due to orthostatic hypotension Status: Resolved Assessment and plan: resolved Current Visit: Yes (2) Ataxia Status: Acute Assessment and plan: Dr. Ponce has seen her and does not feels she has evidence of seziure, TIA or stroke. Current Visit: Yes (3) Dementia Status: Acute Assessment and plan: cont namenda Current Visit: Yes (4) Diabetes mellitus Status: Chronic Assessment and plan: Blood sugar still not well controlled. cont Lantus Current Visit: Yes Qualifiers: Diabetes mellitus type: type 2 Chronic kidney disease stage: stage 5, not on chronic dialysis (5) Anemia Status: Chronic Assessment and plan: stool for occult blood negative x2, continue Protonix, egd in am, hgb better today Current Visit: Yes (6) Acute renal failure Status: Acute Assessment and plan: Thanks to Dr. Murray for his help, cont gentle hydration Current Visit: Yes (7) Malignant hypertension Status: Acute Assessment and plan: coreg 6.25 mg po bid, norvasc 10 mg, hydralazine prn Current Visit: Yes Hospitalist: Subjective Interval history: patient will have egd in am, patient is no longer orthostatic. Her blood pressure was very elevated. Gave her hydralazine IV and will start her on Coreg and Norvasc. Would like to speak with her daughter. I am waiting for her to get there. Patient does not know her cell number. Exam - Constitutional Vitals: Period Temp Pulse Resp BP Sys/Jean Pulse Ox Last 24 Hr 75 F-99.2 F 70-86 16-20 131-203/65-96 98-100 Exam: Heart Rate-[RRR] Lungs-[CTAB] GI-[+bs soft, NT] Ext-[no edema] Neuro [Motor 5/5], [alert and oriented times 3] psych [normal mood and affect] General [no acute distress] Results - Labs CBC & BMP: 03/10/17 04:29 03/10/17 04:29 Lab Results: I have reviewed the past 24 hour labs Specialty Discharge - Follow Up or Referrals Follow up with: Manuel Ponce MD [Physician] - 1 Month
[2017-03-10] MEDS ORDERED: hydrALAZINE 20 MG/1 ML VIAL IV PRN (13:24)
--- NOTE | 2017-03-10 14:06 | Gastrointestinal Progress Note ---
<Shavon Freitas Shagufta - Last Filed: 03/10/17 14:04> Assessment and Plan (1) Anemia Status: Chronic Assessment and plan: 03/10-HH stable at 06/06. No overt bleeding. EGD postponed until tomorrow due to patient eating breakfast today. Plan and addendum to follow by Dr Kiran. 03/09-admitted with syncopal episodes however noted to have downward trend of H&H from admission. Admitting H&H 06/06 now trended down to 02/26 and absence of overt bleeding. Stools negative for occult blood. BUN/creatinine ratio unremarkable at 12. Elevated creatinine of 5.5. No known prior GI history. On Plavix therapy for history of cardiac stents greater than 20 years ago. Last dose today however on hold at this time. Further plan an addendum to followed by Dr. Kiran. Current Visit: Yes Gastroenterology - PN: Subj Interval history: CC: Anemia Pt is seen, awake and alert lying in bed. States she is feeling about the same today. She was scheduled for EGD this morning however she ate breakfast therefore this has been rescheduled to tomorrow. She denies any abdominal pain, nausea or vomiting. HH is stable at 06/06. Abdomen is soft, nontender. ROS: Denies SOB or chest pain Exam (Progress Note) - Constitutional Vitals: Period Temp Pulse Resp BP Sys/Jean Pulse Ox Last 24 Hr 75 F-99.2 F 70-86 16-20 131-203/65-96 98-100 General appearance: normal weight, no acute distress - Head Head exam: Present: normal inspection, normocephalic - Eye Eye exam: Present: other (lids and conjunctiva unremarkable). Absent: scleral icterus - ENT ENT exam: Present: normal exam, normal oropharynx - Neck Neck exam: Present: normal inspection - Respiratory Respiratory exam: Present: clear to auscultation bilaterally. Absent: rales, rhonchi, wheezes - Cardiovascular Cardiovascular exam: Present: regular rate and rhythm. Absent: diastolic murmur , JVD, systolic murmur - GI/Abdominal GI/Abdominal exam: Present: normal bowel sounds, soft. Absent: ascites, distended, mass, organomegaly, tenderness - Extremities Exam Extremities exam: Present: normal inspection, full ROM - Back Exam Back exam: Present: normal inspection - Neurological Exam Neurological exam: Present: alert, oriented X3 - Psychiatric Psychiatric exam: Present: normal affect, normal mood - Skin Skin exam: Present: normal color, warm, dry Results - Labs CBC & BMP: 03/10/17 04:29 03/10/17 04:29 Lab Results: I have reviewed the past 24 hour labs Specialty Discharge - Follow Up or Referrals Follow up with: Manuel Ponce MD [Physician] - 1 Month <Smith Kiran - Last Filed: 03/10/17 18:26> Exam (Progress Note) - Constitutional Vitals: Period Temp Pulse Resp BP Sys/Jean Pulse Ox Last 24 Hr 97.4 F-99.2 F 70-86 16-20 131-203/65-96 98-100 Results - Labs CBC & BMP: 03/10/17 04:29 03/10/17 04:29
[2017-03-10] MEDS: SODIUM CHLORIDE 0.9% 1,000 ML IV SCH (14:58)
--- NOTE | 2017-03-10 17:14 | Nephrology Progress Note ---
Nephrology - PN: Subj Interval history: Patient is resting comfortably no acute changes. Serum creatinine is trending down. She did receive blood today. And decrease IV fluids to 50 cc an hour. BMP in a.m. 03/10/2017 the patient is resting comfortably. Serum creatinine is noted to be 5.2 which is trending down. We will continue with IV fluids at 50 cc an hour. Exam (PN)-Nephrology - Vital Signs Vital signs: Period Temp Pulse Resp BP Sys/Jean Pulse Ox Last 24 Hr 97.4 F-99.2 F 70-86 16-20 131-203/65-96 98-100 - General Appearance General appearance: well-developed, well-nourished EENT: ATNC Neck: supple Respiratory: clear Cardiology: regular rate, regular rhythm Gastrointestinal: normoactive bowel sounds, no tenderness Neurologic: alert and oriented x3 Musculoskeletal: no clubbing Psychiatric: mood/affect appropriate - Lab 03/10/17 04:29 03/10/17 04:29 Most recent lab results Calcium 8.2 MG/DL (8.5-10.1) L 03/10/17 04:29 Phosphorus 3.8 MG/DL (2.5-4.9) 03/09/17 04:00 Magnesium 1.9 MG/DL (1.8-2.4) 03/07/17 20:28 Assessment and Plan (1) Hypertension Status: Chronic Current Visit: Yes Qualifiers: Hypertension type: essential hypertension Qualified Code(s): I10 - Essential (primary) hypertension (2) Diabetes mellitus Status: Chronic Current Visit: Yes Qualifiers: Diabetes mellitus type: type 2 Chronic kidney disease stage: stage 5, not on chronic dialysis (3) Syncope due to orthostatic hypotension Status: Resolved Current Visit: Yes (4) Anemia Status: Chronic Current Visit: Yes (5) Acute renal failure Status: Acute Assessment and plan: Acute versus chronic renal failure. Will check a BMP in the morning. We will also check a phosphorus level in morning. Strict I's and O's. Avoid nephrotoxic agents. Continue with IV fluids at 50 cc an hour. Current Visit: Yes Specialty Discharge - Follow Up or Referrals Follow up with: Manuel Ponce MD [Physician] - 1 Month
[2017-03-10] MEDS: INSULIN GLARGINE 100 UNIT/ML SUBCUT SCH (21:54)
[2017-03-11 05:20] LABS: Basophils % 0.2 % (0.0-0.8); Eosinophils # 0.3 10*3/uL (0.0-0.87); Eosinophils % 2.1 % (0.00-10.9); Hemoglobin 10.6 GM/DL (12.0-16.0); Immature Granulocytes % 0.8 %; Lymphocytes # 0.8 10*3/uL (1.4-4.0); Lymphocytes % 6.4 % (21.3-54.2); Mean Corpuscular HGB Conc 34.2 GM/DL (32-36); Mean Corpuscular Hemoglobin 29 PG (27-34); Mean Platelet Volume 11.4 FL (9.6-12.0); Monocytes # 0.6 10*3/uL (0.11-0.8); Monocytes % 4.5 % (1.7-12.7); Neutrophils # 10.7 10*3/uL (1.4-7.4); Platelet Count 232 T/CUMM (130-400); Red Blood Count 3.69 MC/CUMM (3.8-5.5); Red Cell Distribution Width 14.3 % (9.3-17.3); White Blood Count 12.4 T/CUMM (4-12)
[2017-03-11 05:45] LABS: Calcium 8.1 MG/DL (8.5-10.1); Osmolality,Calculated 301.3 MOS/KG (273-304); Potassium 4.9 MMOL/L (3.5-5.1)
[2017-03-11] MEDS: INSULIN REGULAR 100 UNIT/ML SUBCUT SCH ×2 (09:00→13:00)
[2017-03-11] MEDS ORDERED: amLODIPine 10 MG TABLET PO SCH (09:00)
[2017-03-11] MEDS: CARVEDILOL 6.25 MG TABLET PO SCH (09:32)
--- NOTE | 2017-03-11 11:20 | Discharge Summary ---
Hospital Course - Hospital Course Hospital Course: Ms. Medina is a 66 year old -[place] female with a past medical history significant for diabetes mellitus, hypertension, CVA, [place] with stent placement presents to the ED today via EMS for further evaluation of syncope having onset yesterday. The patient and her daughter who is at bedside reports the patient had a syncopal episode yesterday on the front porch and again today in the bathroom after urination. Patient was severely orthostatic and was rehydrated. After rehydration her blood pressure began to climb and had to be started on Coreg and Norvasc. Patient does have diabetes and is on insulin at home. Her hemoglobin A1c is 7.3. Patient was noted to be anemic on admission but is an extremely poor historian. Patient received 2 units packed red blood cells and her hemoglobin stabilized at 10.6. Patient takes Plavix after her stent many years ago. She could not tell us the hospital where the stent was done so we cannot verify the type of stent she received. Dr. Kiran was consulted and plans to do an EGD today. Patient's cholesterol is 182 with an LDL of 83. Patient had some problems with ataxia most likely secondary to her dehydration. Her urine drug screen was negative. Her infectious workup was also negative. Dr. Ponce has seen her and recommends an outpatient EEG. He did not believe that she has had strokes or seizures or TIAs. Patient was diagnosed with dementia and is currently on Namenda. Patient could not have an MRI as we could not verify the type of stent that she had. Her head CT showed nothing acute but generalized atrophy that was pretty prominent with encephalomalacia. Patient will follow up with Dr. Ponce upon discharge. Patient also has chronic renal failure that did not significantly improve with hydration. Her BUN and creatinine on discharge was 62 and 5 respectively. Her renal ultrasound shows medical renal disease. Dr. Murray was consulted and will continue to follow her as an outpatient. Patient is high risk for needing dialysis. Patient had some complaints of shortness of breath but her chest x- ray was normal and her VQ was low probability. Patient will be discharged home today to follow-up with a primary care doctor, Dr. Levin and Dr. Ponce. - Time spent with patient Time with patient DS: Greater than 30 minutes (45 min) Diagnosis - Discharge Diagnosis (1) Syncope due to orthostatic hypotension Status: Resolved (2) Ataxia Status: Acute (3) Dementia Status: Acute (4) Diabetes mellitus Status: Chronic (5) Anemia Status: Chronic (6) Acute renal failure Status: Acute (7) Malignant hypertension Status: Acute Specialty Discharge - Follow Up or Referrals Follow up with: Manuel Ponce MD [Physician] - 1 Month Discharge Plan - Discharge Data Disposition: Home Health Service Condition at Discharge: Stable Discharge Diet: diabetic diet Activity: resume usual activities as tolerated Hygiene: no restrictions Weight Bearing at Discharge: full weight bearing Driving: no restrictions - Discharge Medications New Carvedilol [Coreg] 12.5 mg PO BID #60 tablet amLODIPine [Norvasc] 10 mg PO DAILY #30 tablet Pantoprazole Tab [Protonix Tab] 40 mg PO DAILY #30 tablet Continue Clopidogrel [Plavix] 75 mg PO DAILY Insulin Detemir [Levemir FlexPen] 18 unit SUBCUT BEDTIME #100 ml Memantine HCl [Namenda XR] 14 mg PO DAILY #30 tablet Changed Gabapentin 200 mg PO BID #60 tablet Discontinued amLODIPine [Norvasc] 5 mg PO DAILY Metoprolol Succinate 100 mg PO BEDTIME Doxazosin Mesylate 1 mg PO DAILY - Follow Up or Referral Follow Up: dr samina [Other] - 1 Week Manuel Ponce MD [Physician] - 1 Month Moses Murray Jr., MD [Physician] - 1 Month - Forms/Instructions Exam - Constitutional Vitals: Period Temp Pulse Resp BP Sys/Jean Pulse Ox Last 24 Hr 97.1 F-98.5 F 76-86 17-20 139-203/63-96 96-100 General appearance: no acute distress - Respiratory Respiratory exam: Present: clear to auscultation bilaterally. Absent: rhonchi, wheezes - Cardiovascular Cardiovascular exam: Present: regular rate and rhythm. Absent: systolic murmur - GI/Abdominal GI/Abdominal exam: Present: normal bowel sounds, other. Absent: tenderness - Extremities Exam Extremities exam: Present: normal inspection, normal capillary refill - Neurological Exam Neurological exam: Present: alert, oriented X3 - Psychiatric Psychiatric exam: Present: normal affect, normal mood Discharge Results Procedures and tests throughout hospitalization: Pending Orders 03/08/17 Occult Blood, Stool Stat 03/08/17 15:49 NE EEG adult awake/drowsy Routine 03/12/17 04:00 BMP [Basic Metabolic Panel] IN AM Labs on day of discharge: Labs from last 24 hours 03/11/17 03/11/17 03/11/17 10:43 07:41 04:25 WBC RBC Hgb Hct MCV MCH MCHC RDW Plt Count MPV Neut % (Auto) Lymph % (Auto) [place] % (Auto) Eos % (Auto) Baso % (Auto) Neut # (Auto) Lymph # (Auto) [place] # (Auto) Eos # (Auto) Baso # (Auto) Immature Gran % Nucleated RBC % Immature Gran # Nucleated RBCs # Immature Plt Fraction Sodium 141 Potassium 4.9 Chloride 112 H Carbon Dioxide 22 Anion Gap 11.9 BUN 62 H Creatinine 5.00 H GFR Calculation 10 BUN/Creatinine Ratio 12.00 Glucose 158 H POC Glucose 135 H 176 H Calculated Osmolality 301.3 Calcium 8.1 L 03/11/17 03/10/17 03/10/17 04:25 19:56 16:22 WBC 12.4 H RBC 3.69 L Hgb 10.6 L Hct 31.0 L MCV 84.0 L MCH 29 MCHC 34.2 RDW 14.3 Plt Count 232 MPV 11.4 Neut % (Auto) 86.0 H Lymph % (Auto) 6.4 L [place] % (Auto) 4.5 Eos % (Auto) 2.1 Baso % (Auto) 0.2 Neut # (Auto) 10.7 H Lymph # (Auto) 0.8 L [place] # (Auto) 0.6 Eos # (Auto) 0.3 Baso # (Auto) 0.0 Immature Gran % 0.8 Nucleated RBC % 0.0 Immature Gran # 0.10 Nucleated RBCs # 0.00 Immature Plt Fraction 0.0 Sodium Potassium Chloride Carbon Dioxide Anion Gap BUN Creatinine GFR Calculation BUN/Creatinine Ratio Glucose POC Glucose 205 H 152 H Calculated Osmolality Calcium 03/10/17 11:51 WBC RBC Hgb Hct MCV MCH MCHC RDW Plt Count MPV Neut % (Auto) Lymph % (Auto) [place] % (Auto) Eos % (Auto) Baso % (Auto) Neut # (Auto) Lymph # (Auto) [place] # (Auto) Eos # (Auto) Baso # (Auto) Immature Gran % Nucleated RBC % Immature Gran # Nucleated RBCs # Immature Plt Fraction Sodium Potassium Chloride Carbon Dioxide Anion Gap BUN Creatinine GFR Calculation BUN/Creatinine Ratio Glucose POC Glucose 230 H Calculated Osmolality Calcium DS: Provider Date of admission: 03/07/17 18:03 Primary care physician: . No PCP Attending physician on admission: Trevon Franco MD Consults: 03/07/17 20:18 Consult to Physician [CONS] Routine Comment: syncope Consulting Provider: Manuel Ponce Consult to Specialist Group: Neurology Person Notified: mayra Date Notified: 03/08/17 Time Notified: 08:35 03/08/17 14:44 Consult to Physician [CONS] Routine Comment: acute vs chronic renal failure Consulting Provider: Moses Murray Jr. When should Consulting Provider be notified: Now Consult to Specialist Group: Nephrology Person Notified: CORNELIUS Date Notified: 03/08/17 Time Notified: 15:30 03/09/17 10:12 Consult to Physician [CONS] Routine Comment: gi bleed on plavix Consulting Provider: Smith Kiran Consult to Specialist Group: Gastroenterology Person Notified: uriah Date Notified: 03/09/17 Time Notified: 10:35 03/10/17 15:37 Consult to Physical Therapy [CONS] Routine Reason for Physical Therapy: Evaluate and Treat Gait Training Discharging clinician: Michelle Perla MD
[2017-03-11] MEDS ORDERED: PROPOFOL 200 MG/20 ML VIAL IV ONE (12:02)
[2017-03-11] MEDS ORDERED: LIDOCAINE 1% 5 ML VIAL ONE (12:02)
--- NOTE | 2017-03-11 12:07 | History and Physical Update ---
History and Physical Update - Physical Exam Mental Status: alert and oriented Heart: regular rate and rhythm Lung: clear to auscultation Abdomen: within normal limits Vitals: within normal limits
--- NOTE | 2017-03-11 12:14 | Operative Note ---
Date of procedure: 03/11/17 Pre-op diagnosis: Anemia with occult positive stools on chronic anticoagulation Procedure: EGD 66-year-old female with anemia occult positive stools now for upper endoscopy to further evaluate. Informed symptoms obtained patient She was sedated with MAC anesthesia per anesthesia protocol. Placed left lateral decubitus position the Olympus flexible video upper endoscope is her lower cavity direct vision the esophagus intubated. Findings: Esophagus-normal proximal mid esophageal mucosa distal esophagus with no significant esophagitis or stricture seen. Stomach-normal insufflation normal mucosa to direct retroflexed views of the body fundus cardia and antrum the stomach with some limited visibility due to retained food. Pylorus normal Duodenum-normal for the bulb and duodenum to the third portion of duodenum. The procedure terminated placed our procedure well. Postop diagnosis: 1. No definitive source of GI blood loss in the upper tract 2. Retained food suspicious for gastroparesis check gastric emptying scan if this is more symptomatic 3. Discuss c scope After Plavix has been held for 5 days. Anesthesia: MAC Surgeon / Physician: Smith Kiran Estimated blood loss: none Specimens: none sent Condition: stable Disposition: post procedure unit Results - Labs CBC & BMP: 03/11/17 04:25 03/11/17 04:25 Discharge Plan - Discharge Data Disposition: Home Health Service - Discharge Medications New Carvedilol [Coreg] 12.5 mg PO BID #60 tablet amLODIPine [Norvasc] 10 mg PO DAILY #30 tablet Pantoprazole Tab [Protonix Tab] 40 mg PO DAILY #30 tablet Continue Clopidogrel [Plavix] 75 mg PO DAILY Insulin Detemir [Levemir FlexPen] 18 unit SUBCUT BEDTIME #100 ml Memantine HCl [Namenda XR] 14 mg PO DAILY #30 tablet Changed Gabapentin 200 mg PO BID #60 tablet Discontinued amLODIPine [Norvasc] 5 mg PO DAILY Metoprolol Succinate 100 mg PO BEDTIME Doxazosin Mesylate 1 mg PO DAILY - Follow Up or Referral Follow Up: dr samina [Other] - 1 Week Manuel Ponce MD [Physician] - 1 Month Moses Murray Jr., MD [Physician] - 1 Month - Forms/Instructions
--- NOTE | 2017-03-11 12:19 | Anesthesia Post-Op ---
Anesthesia Post OP - Post Ansesthetic Evaluation Patient seen in post op: Yes Resp: within normal limits CV: within normal limits Mental: within normal limits Temp: within normal limits Yfwa-Cv-[id number]: within normal limits Nausea and Vomiting: within normal limits Pain: within normal limits
[2017-03-11 12:49] VITALS: BP 153/56
--- NOTE | 2017-03-11 12:50 | Nephrology Progress Note ---
Nephrology - PN: Subj Interval history: Patient is resting comfortably no acute changes. Serum creatinine is trending down. She did receive blood today. And decrease IV fluids to 50 cc an hour. BMP in a.m. 03/10/2017 the patient is resting comfortably. Serum creatinine is noted to be 5.2 which is trending down. We will continue with IV fluids at 50 cc an hour. 03/11/2014 the patient is now status post an EGD. Serum creatinine continues to trend down to 5 today. Continue with IV fluids at this time. No other recommendations. Exam (PN)-Nephrology - Vital Signs Vital signs: Period Temp Pulse Resp BP Sys/Jean Pulse Ox Last 24 Hr 97.1 F-98.5 F 69-86 15-20 118-194/56-92 96-100 - General Appearance General appearance: well-developed, well-nourished EENT: ATNC Neck: supple Respiratory: clear Cardiology: regular rate, regular rhythm Gastrointestinal: normoactive bowel sounds, no tenderness Neurologic: alert and oriented x3 Musculoskeletal: no clubbing Psychiatric: mood/affect appropriate - Lab 03/11/17 04:25 03/11/17 04:25 Most recent lab results Calcium 8.1 MG/DL (8.5-10.1) L 03/11/17 04:25 Phosphorus 3.8 MG/DL (2.5-4.9) 03/09/17 04:00 Magnesium 1.9 MG/DL (1.8-2.4) 03/07/17 20:28 Assessment and Plan (1) Hypertension Status: Chronic Current Visit: Yes Qualifiers: Hypertension type: essential hypertension Qualified Code(s): I10 - Essential (primary) hypertension (2) Diabetes mellitus Status: Chronic Current Visit: Yes Qualifiers: Diabetes mellitus type: type 2 Chronic kidney disease stage: stage 5, not on chronic dialysis (3) Syncope due to orthostatic hypotension Status: Resolved Current Visit: Yes (4) Anemia Status: Chronic Current Visit: Yes (5) Acute renal failure Status: Acute Assessment and plan: Acute versus chronic renal failure. Will check a BMP in the morning. We will also check a phosphorus level in morning. Strict I's and O's. Avoid nephrotoxic agents. Continue with IV fluids at 50 cc an hour. Current Visit: Yes Specialty Discharge - Follow Up or Referrals Follow up with: dr samina [Other] - 1 Week Manuel Ponce MD [Physician] - 1 Month Moses Murray Jr., MD [Physician] - 1 Month
[2017-03-11] MEDS: SODIUM CHLORIDE 0.9% 1,000 ML IV SCH (13:53)
[2017-03-11] MEDS: GABAPENTIN 100 MG CAPSULE PO SCH (13:55)
[2017-03-11] MEDS: MEMANTINE 5 MG TABLET PO SCH (13:56)
[2017-03-11] MEDS: PANTOPRAZOLE 40 MG TABLET PO SCH (13:56)
--- NOTE | 2017-03-14 14:34 | Physician Query Form ---
CLICK EDIT DOCUMENT TO SELECT QUERY ANSWER --> OK --> SIGN Soni Ayala RN, CCDS Certified Clinical Financial Underwriter W) [phone] (f) [phone] [email or web address] PROVIDERS: Make your selection(s) from the choices in EACH section by typing an "x" and enter comments in the comment section. Please use your independent medical judgment in providing your response. This request does not imply that any particular answer is desired or expected. CLINICAL INDICATORS: (Providers should not edit this section) The medical record indicates that the patient was admitted with syncope, HH of 10.1/30.2 that has decreased to 7.7/22.7 and the patient is getting 2 units of blood. "Negative for Occult Blood" Based on the above, could you clarify which of the following conditions you are evaluating, treating, and/or monitoring? ( ) Blood loss anemia ( ) acute ( ) chronic ( ) acute on chronic ( ) Acute blood loss anemia on baseline chronic anemia ( ) Acute blood loss anemia as a complication of a procedure ( ) Iron deficiency anemia not associated with blood loss ( ) Dilutional anemia due to IV fluids ( ) Anemia due to chemotherapy ( ) Anemia due to neoplastic disease () Anemia due to chronic kidney disease ( ) Pernicious anemia ( ) Aplastic anemia ( ) Hemolytic anemia ( ) immune ( ) non-immune - please specify cause: ( ) Anemia due to other condition, please specify: ( x) Clinically unable to determine COMMENTS:No findings on EGD however unable to proceed with colonoscopy to further evaluate due to Plavix therapy at this time. Hx of chronic renal disease. PLEASE ALSO DOCUMENT RESPONSE IN PROGRESS NOTES AND/OR DISCHARGE SUMMARY Use of terms such as suspected, likely, or probable (associated with a specific diagnosis that is being evaluated, monitored, or treated as if it exists) are acceptable and can be restated in the discharge summary if not ruled out. MTDD
== END 2017-03-11 15:45 | disposition home health service (06) | DRG 683 ==
LOC: N.ED 16:23 → N.EDINP 18:03 → SUATTDRO 18:03 → N.TELEN 18:57
PROVIDERS: ADMIT Internal Medicine; ATTEND Internal Medicine

== ENCOUNTER 2019-01-04 19:23 | Inpatient (IN) ==
[2019-01-04 20:15] LABS: Basophils % 0.2 % (0.0-0.8); Immature Granulocytes % 2.7 %; Immature Granulocytes Absolute 0.49 #; Lymphocytes # 0.7 10*3/uL (1.4-4.0); Lymphocytes % 4.1 % (21.3-54.2); Mean Platelet Volume 11.3 FL (9.6-12.0); Monocytes % 2.1 % (1.7-12.7); NRBC # 0.03 10*3/uL; Neutrophils % 90.9 % (38.7-73.9); Platelet Count 392 T/CUMM (130-400); Red Cell Distribution Width 13.8 % (9.3-17.3); White Blood Count 18.1 T/CUMM (4-12)
[2019-01-04 20:18] LABS: Hematocrit 17.4 VOL% (35.7-47.0); Hemoglobin 5.4 GM/DL (12.0-16.0)
[2019-01-04 20:31] LABS: INR 1.2; PT Patient Result 12.7 SECS; Partial Thromboplastin Time 26.2 SECS (0-40)
[2019-01-04 20:34] LABS: Alanine Aminotransferase 32 U/L (13-56); Albumin 2.5 G/DL (3.4-5.0); Alkaline Phosphatase 112 U/L (45-117); Aspartate Amino Transferase 21 U/L (0-37); Bilirubin,Total < 0.39 MG/DL (0.2-1.0); Blood Urea Nitrogen 168 MG/DL (7-18); Calcium 7.5 MG/DL (8.5-10.1); Glucose 245 MG/DL (74-106); Total Protein 7.1 G/DL (6.4-8.3)
[2019-01-04 20:52] LABS: Band Neutrophils 1 % (0-10); Lymphocytes 4 % (20-55); Platelet Estimate Increased; Segmented Neutrophils 95 % (50-85)
[2019-01-04 20:53] LABS: Hypochromasia Slight; Total Cells Counted 100
[2019-01-04] MEDS ORDERED: FUROSEMIDE 100 MG/10 ML VIAL IV STA (21:20)
[2019-01-04] MEDS ORDERED: DEXTROSE 50% 25 GM/50 ML VIAL IV STA (22:07)
[2019-01-04] MEDS ORDERED: INSULIN REGULAR 100 UNIT/ML IV STA (22:07)
[2019-01-04] MEDS ORDERED: cefTRIAXone 250 MG VIAL IV STA (22:11)
[2019-01-04] MEDS ORDERED: cefTRIAXone 1,000 MG in SYRINGE 1 EACH IV STA (22:12)
[2019-01-04 22:21] LABS: Apearance,Urine Slightly Hazy (Clear); Bilirubin,Urine Negative (Negative); Blood, Urine Moderate mg/dL (Negative); Glucose,Urine (UA) >=500 mg/dL (Negative); Ketones,Urine Negative (Negative); Nitrite,Urine Negative (Negative); Protein,Urine 100 MG/DL; RBC,Urine 3 /HPF (0-4); Squamous Epithelial Cell,Urine Occasional /HPF (0-10); Urine Color Yellow (Yellow); Urine Urobilinogen < 2.0 EU/DL (0.2-1.0); WBC,Urine <1 /HPF (0-6)
[2019-01-04 22:33] LABS: Allen Test Positive; Pt O2 Delivery Device Room Air
[2019-01-04 22:35] LABS: ABG Base Excess -15.7 MMOL/L (-2.5-2.5); ABG HCO3 10.7 MMOL/L (20-26); ABG Oxygen Saturation 43.3 % (95-100); ABG PCO2 27.2 MM HG (35-48); ABG PH 7.214 (7.35-7.45); ABG TCO2 11.6 MMOL/L (23-27)
[2019-01-04 22:37] LABS: ABG PO2 33.9 MM HG (80-95)
[2019-01-04] MEDS ORDERED: DEXTROSE 50% 25 GM/50 ML SYRINGE IV ONE (22:55)
[2019-01-04] MEDS ORDERED: SODIUM CHLORIDE 0.9% 1,000 ML IV PRN (22:57)
[2019-01-04 23:27] LABS: ABG Base Excess -16.2 MMOL/L (-2.5-2.5); ABG HCO3 11.7 MMOL/L (20-26); ABG Oxygen Saturation 98.6 % (95-100); ABG PCO2 21.3 MM HG (35-48); ABG TCO2 9.6 MMOL/L (23-27); Allen Test Positive
[2019-01-04] MEDS ORDERED: ONDANSETRON 4 MG/2 ML VIAL IV PRN (23:31)
[2019-01-04] MEDS ORDERED: MORPHINE 4 MG/1 ML VIAL IV PRN (23:31)
[2019-01-04] MEDS ORDERED: ACETAMINOPHEN 325 MG TABLET PO PRN (23:31)
[2019-01-04] MEDS ORDERED: guaiFENesin/DM ER 600-30 MG TABLET PO PRN (23:31)
[2019-01-04] MEDS ORDERED: NICOTINE 21 MG/24 HR PATCH TRANSDERM PRN (23:31)
[2019-01-04] MEDS ORDERED: BISACODYL 5 MG TABLET PO PRN (23:31)
[2019-01-04] MEDS ORDERED: diphenhydrAMINE CAP 25 MG CAPSULE PO PRN (23:31)
[2019-01-04] MEDS ORDERED: SODIUM CHLORIDE 0.9% 1,000 ML IV SCH (23:45)
[2019-01-04] MEDS ORDERED: VANCOMYCIN INJ 1,000 MG in SODIUM CHLORIDE 0.9% 250 ML IV PRN (23:45)
[2019-01-05 00:51] LABS: Risk Ratio 2.27; Thyroid Stimulating Hormone 2.31 uIU/ml (0.358-3.74); VLDL CHOLESTEROL 20.8 MG/DL
[2019-01-05] MEDS ORDERED: SODIUM BICARBONATE 50 MEQ/50 ML VIAL IV ONE ×2 (02:42→02:49)
[2019-01-05] MEDS ORDERED: VANCOMYCIN INJ 1,000 MG in SODIUM CHLORIDE 0.9% 250 ML IV ONE (03:00)
[2019-01-05] MEDS ORDERED: FUROSEMIDE 40 MG/4 ML VIAL IV ONE (05:59)
[2019-01-05] MEDS: cefTRIAXone 1,000 MG in SYRINGE 1 EACH IV SCH ×2 (08:58→22:54)
[2019-01-05] MEDS: PANTOPRAZOLE 40 MG TABLET PO SCH (08:58)
[2019-01-05] MEDS: metroNIDAZOLE INJ 500 MG in PREMIX 1 EACH IV SCH ×3 (08:58→22:54)
[2019-01-05] MEDS ORDERED: hydrALAZINE 20 MG/1 ML VIAL IV PRN (09:20)
[2019-01-05] MEDS ORDERED: PNEUMOCOCCAL VACCINE (13 VALENT) 0.5 ML SYRINGE IM ONE (10:29)
[2019-01-05] MEDS ORDERED: LIDOCAINE 1%/EPI INJ 20 ML VIAL ONE (11:57)
[2019-01-05] MEDS ORDERED: BUPIVACAINE MPF 0.25% /EPI 30 ML VIAL ONE (11:57)
[2019-01-05] MEDS: ZINC OXIDE PASTE 113 GM TUBE TOP SCH ×2 (12:10→22:56)
[2019-01-05 12:49] LABS: Basophils # 0.1 10*3/uL (0.0-0.2); Basophils % 0.3 % (0.0-0.8); Hematocrit 23.6 VOL% (35.7-47.0); Hemoglobin 7.8 GM/DL (12.0-16.0); Immature Granulocytes % 5.3 %; Immature Granulocytes Absolute 0.94 #; Lymphocytes % 5.5 % (21.3-54.2); Mean Corpuscular HGB Conc 33.1 GM/DL (32-36); Mean Corpuscular Volume 85.2 FL (87-102); Mean Platelet Volume 10.7 FL (9.6-12.0); Monocytes % 2.5 % (1.7-12.7); NRBC # 0.09 10*3/uL; Neutrophils % 86.4 % (38.7-73.9); Platelet Count 349 T/CUMM (130-400); Red Blood Count 2.77 MC/CUMM (3.8-5.5); Red Cell Distribution Width 13.7 % (9.3-17.3); White Blood Count 17.7 T/CUMM (4-12)
[2019-01-05] MEDS ORDERED: EPOETIN ALFA 10,000 UNIT/1 ML VIAL IV PRN (13:10)
[2019-01-05 13:16] LABS: CKMB % 4.5 %
[2019-01-05 13:16] LABS: Albumin 2.3 G/DL (3.4-5.0); Bilirubin,Total 0.4 MG/DL (0.2-1.0); Calcium 6.8 MG/DL (8.5-10.1); Total Protein 6.8 G/DL (6.4-8.3)
[2019-01-05 13:18] LABS: Troponin I 0.198 NG/ML (0.00-0.045)
[2019-01-05 13:47] LABS: Lymphocytes 6 % (20-55); Nucleated Red Blood Cells 4 (0-5); Segmented Neutrophils 93 % (50-85); Total Cells Counted 100
[2019-01-05 13:49] LABS: Anisocytosis 1+; Burr Cells 2+; Macrocytosis 1+; Microcytosis 1+; Polychromasia 1+
[2019-01-05 13:50] LABS: Acanthocytes 1+; Elliptocytes 1+; Poikilocytosis 2+; Target Cells Slight
[2019-01-05 13:51] LABS: Platelet Estimate Normal
[2019-01-05] MEDS ORDERED: PROPOFOL 200 MG/20 ML VIAL IV ONE (13:52)
[2019-01-05] MEDS ORDERED: fentaNYL 100 MCG/2 ML VIAL ONE (13:52)
[2019-01-05] MEDS ORDERED: MIDAZOLAM 2 MG/2 ML VIAL ONE (13:53)
[2019-01-05] MEDS ORDERED: ONDANSETRON 4 MG/2 ML VIAL ONE (13:53)
[2019-01-05] MEDS ORDERED: SODIUM CHLORIDE 0.9% 100 ML IV ONE (13:53)
[2019-01-05 14:15] LABS: HIV Antigen/Antibody Result Nonreactive (Nonreactive); Hepatitis B Core IgM Quant 0.16 Index; Hepatitis B Surface Ag Quant < 0.10 Index; Hepatitis B Surface Ag Result Negative (Negative); Hepatitis C Virus Ab Quant 0.06 Index; Hepatitis C Virus Ab Result Negative (Negative)
[2019-01-05] MEDS: SODIUM BICARB INJ 150 MEQ in DEXTROSE 5% 850 ML IV SCH (14:46)
[2019-01-05] MEDS: CARVEDILOL 6.25 MG TABLET PO SCH (22:55)
[2019-01-06] MEDS: metroNIDAZOLE INJ 500 MG in PREMIX 1 EACH IV SCH ×3 (02:11→16:50)
[2019-01-06 06:25] LABS: % Iron Saturation 19.6 % (18-50); Free T4 (Free Thyroxine) 1.24 NG/DL (0.76-1.46)
[2019-01-06 06:57] LABS: Albumin 2.2 G/DL (3.4-5.0); Calcium 7.4 MG/DL (8.5-10.1); Osmolality,Calculated 321.1 MOS/KG (273-304)
[2019-01-06] MEDS ORDERED: VANCOMYCIN INJ 1,000 MG in SODIUM CHLORIDE 0.9% 250 ML IV ONE (09:00)
[2019-01-06] MEDS: cefTRIAXone 1,000 MG in SYRINGE 1 EACH IV SCH ×2 (12:16→21:32)
[2019-01-06] MEDS: CARVEDILOL 6.25 MG TABLET PO SCH ×2 (12:17→21:32)
[2019-01-06] MEDS: PANTOPRAZOLE 40 MG TABLET PO SCH (12:17)
[2019-01-06] MEDS: SODIUM BICARB INJ 150 MEQ in DEXTROSE 5% 850 ML IV SCH ×2 (12:18→21:32)
[2019-01-06] MEDS: ZINC OXIDE PASTE 113 GM TUBE TOP SCH ×2 (12:22→21:32)
[2019-01-06 13:07] LABS: Basophils % 0.1 % (0.0-0.8); Eosinophils % 0.1 % (0.00-10.9); Hematocrit 21.8 VOL% (35.7-47.0); Hemoglobin 7.3 GM/DL (12.0-16.0); Immature Granulocytes % 5.7 %; Immature Granulocytes Absolute 0.86 #; Lymphocytes # 1.2 10*3/uL (1.4-4.0); Lymphocytes % 7.9 % (21.3-54.2); Mean Corpuscular HGB Conc 33.5 GM/DL (32-36); Mean Corpuscular Volume 83.5 FL (87-102); Mean Platelet Volume 10.7 FL (9.6-12.0); Monocytes % 3.2 % (1.7-12.7); NRBC # 0.22 10*3/uL; Platelet Count 285 T/CUMM (130-400); Red Blood Count 2.61 MC/CUMM (3.8-5.5); White Blood Count 15.2 T/CUMM (4-12)
[2019-01-06] MEDS ORDERED: VANCOMYCIN INJ 1,250 MG in SODIUM CHLORIDE 0.9% 250 ML IV ONE (14:00)
[2019-01-06 14:27] LABS: Lymphocytes 9 % (20-55); Segmented Neutrophils 87 % (50-85); Total Cells Counted 100
[2019-01-06 14:28] LABS: Hypochromasia Slight; Microcytosis 1+; Platelet Estimate Normal; Target Cells Slight
[2019-01-06 14:29] LABS: Macrocytosis 1+
[2019-01-06 14:30] LABS: Polychromasia Few
[2019-01-06] MEDS ORDERED: DEXTROSE 50% 25 GM/50 ML VIAL IV PRN (15:15)
[2019-01-06] MEDS ORDERED: GLUCAGON 1 MG VIAL IM PRN (15:15)
[2019-01-06] MEDS: INSULIN LISPRO 100 UNIT/ML SUBCUT SCH (17:04)
[2019-01-06] MEDS ORDERED: VANCOMYCIN INJ 500 MG in SODIUM CHLORIDE 0.9% 100 ML IV PRN (18:28)
[2019-01-06 21:33] LABS: Hematocrit 21.7 VOL% (35.7-47.0); Hemoglobin 7.2 GM/DL (12.0-16.0)
[2019-01-07] MEDS: INSULIN LISPRO 100 UNIT/ML SUBCUT SCH ×5 (00:02→23:05)
[2019-01-07] MEDS: metroNIDAZOLE INJ 500 MG in PREMIX 1 EACH IV SCH ×3 (01:13→17:39)
[2019-01-07 05:39] LABS: Albumin 1.8 G/DL (3.4-5.0); Osmolality,Calculated 294.8 MOS/KG (273-304)
[2019-01-07] MEDS: cefTRIAXone 1,000 MG in SYRINGE 1 EACH IV SCH ×2 (09:33→21:25)
[2019-01-07] MEDS: CARVEDILOL 6.25 MG TABLET PO SCH ×2 (09:33→21:25)
[2019-01-07] MEDS: PANTOPRAZOLE 40 MG TABLET PO SCH (09:33)
[2019-01-07 09:57] LABS: Basophils % 0.1 % (0.0-0.8); Eosinophils % 0.1 % (0.00-10.9); Hematocrit 22.8 VOL% (35.7-47.0); Hemoglobin 7.3 GM/DL (12.0-16.0); Immature Granulocytes % 6.2 %; Lymphocytes # 1.2 10*3/uL (1.4-4.0); Lymphocytes % 10.3 % (21.3-54.2); Mean Corpuscular Volume 86.4 FL (87-102); Mean Platelet Volume 11.1 FL (9.6-12.0); Monocytes % 3.9 % (1.7-12.7); NRBC # 0.26 10*3/uL; Neutrophils % 79.4 % (38.7-73.9); Platelet Count 282 T/CUMM (130-400); Red Blood Count 2.64 MC/CUMM (3.8-5.5); Red Cell Distribution Width 14.1 % (9.3-17.3); White Blood Count 11.2 T/CUMM (4-12)
[2019-01-07] MEDS: ZINC OXIDE PASTE 113 GM TUBE TOP SCH ×2 (10:04→23:05)
[2019-01-07 10:21] LABS: Band Neutrophils 3 % (0-10); Hypochromasia 1+; Lymphocytes 5 % (20-55); Microcytosis Slight; Nucleated Red Blood Cells 4 (0-5); Platelet Estimate Adequate; Segmented Neutrophils 86 % (50-85); Total Cells Counted 100
[2019-01-07] MEDS ORDERED: SODIUM CHLORIDE 0.9% 1,000 ML IV PRN (14:45)
[2019-01-07] MEDS: SODIUM BICARBONATE 650 MG TABLET PO SCH ×2 (17:39→21:25)
[2019-01-08] MEDS: metroNIDAZOLE INJ 500 MG in PREMIX 1 EACH IV SCH ×3 (02:01→17:52)
[2019-01-08] MEDS: SODIUM BICARB INJ 150 MEQ in DEXTROSE 5% 850 ML IV SCH (02:43)
[2019-01-08 05:56] LABS: Basophils % 0.1 % (0.0-0.8); Eosinophils % 0.2 % (0.00-10.9); Hematocrit 23.9 VOL% (35.7-47.0); Hemoglobin 7.7 GM/DL (12.0-16.0); Immature Granulocytes % 6.2 %; Immature Granulocytes Absolute 0.67 #; Lymphocytes # 1.6 10*3/uL (1.4-4.0); Lymphocytes % 14.8 % (21.3-54.2); Mean Corpuscular HGB Conc 32.2 GM/DL (32-36); Mean Corpuscular Volume 86.9 FL (87-102); Mean Platelet Volume 11.2 FL (9.6-12.0); Monocytes % 3.8 % (1.7-12.7); NRBC # 0.22 10*3/uL; Neutrophils % 74.9 % (38.7-73.9); Platelet Count 291 T/CUMM (130-400); Red Blood Count 2.75 MC/CUMM (3.8-5.5); Red Cell Distribution Width 14.3 % (9.3-17.3); White Blood Count 10.8 T/CUMM (4-12)
[2019-01-08 06:12] LABS: Albumin 1.8 G/DL (3.4-5.0); Calcium 6.2 MG/DL (8.5-10.1); Osmolality,Calculated 297.7 MOS/KG (273-304)
[2019-01-08 06:27] LABS: Band Neutrophils 1 % (0-10); Hypochromasia 1+; Lymphocytes 13 % (20-55); Nucleated Red Blood Cells 1 (0-5); Segmented Neutrophils 79 % (50-85); Target Cells Slight; Total Cells Counted 100
[2019-01-08 06:28] LABS: Microcytosis Slight; Polychromasia Slight
[2019-01-08 06:29] LABS: Platelet Estimate Normal
[2019-01-08] MEDS: INSULIN LISPRO 100 UNIT/ML SUBCUT SCH ×4 (09:11→22:25)
[2019-01-08] MEDS: CARVEDILOL 6.25 MG TABLET PO SCH ×3 (09:30→22:25)
[2019-01-08] MEDS: ZINC OXIDE PASTE 113 GM TUBE TOP SCH ×2 (09:30→22:25)
[2019-01-08] MEDS: PANTOPRAZOLE 40 MG TABLET PO SCH ×2 (09:31→12:08)
[2019-01-08] MEDS: CALCITRIOL 0.25 MCG CAPSULE PO SCH ×2 (09:31→12:08)
[2019-01-08] MEDS: SODIUM BICARBONATE 650 MG TABLET PO SCH (09:31)
[2019-01-08] MEDS: cefTRIAXone 1,000 MG in SYRINGE 1 EACH IV SCH ×2 (12:08→22:25)
[2019-01-08] MEDS ORDERED: HEPARIN 10,000 UNIT/10 ML VIAL IV PRN (15:56)
[2019-01-08] MEDS ORDERED: VANCOMYCIN INJ 500 MG in SODIUM CHLORIDE 0.9% 100 ML IV ONE (17:00)
[2019-01-08 19:40] LABS: Hematocrit 31.3 VOL% (35.7-47.0)
[2019-01-09] MEDS: metroNIDAZOLE INJ 500 MG in PREMIX 1 EACH IV SCH ×2 (01:50→09:33)
[2019-01-09 02:53] LABS: Apearance,Urine CLEAR (Clear); Bacteria,Urine Occasional /HPF (Few); Bilirubin,Urine Negative (Negative); Blood, Urine Small mg/dL (Negative); Glucose,Urine (UA) >=500 mg/dL (Negative); Ketones,Urine Negative (Negative); Nitrite,Urine Negative (Negative); Protein,Urine 100 MG/DL; RBC,Urine 2 /HPF (0-4); Squamous Epithelial Cell,Urine Occasional /HPF (0-10); Urine Color Yellow (Yellow); Urine Specific Gravity 1.008 (1.001-1.035); Urine Urobilinogen < 2.0 EU/DL (0.2-1.0); WBC,Urine 2 /HPF (0-6)
[2019-01-09 04:28] LABS: Basophils % 0.2 % (0.0-0.8); Eosinophils % 0.3 % (0.00-10.9); Hematocrit 30.7 VOL% (35.7-47.0); Hemoglobin 9.7 GM/DL (12.0-16.0); Immature Granulocytes % 5.3 %; Immature Granulocytes Absolute 0.51 #; Lymphocytes % 10.3 % (21.3-54.2); Mean Corpuscular HGB Conc 31.6 GM/DL (32-36); Mean Corpuscular Volume 89.8 FL (87-102); Monocytes % 4.7 % (1.7-12.7); NRBC # 0.15 10*3/uL; Neutrophils % 79.2 % (38.7-73.9); Platelet Count 183 T/CUMM (130-400); Red Blood Count 3.42 MC/CUMM (3.8-5.5); Red Cell Distribution Width 14.2 % (9.3-17.3); White Blood Count 9.6 T/CUMM (4-12)
[2019-01-09 04:48] LABS: Calcium 6.7 MG/DL (8.5-10.1); Osmolality,Calculated 284.4 MOS/KG (273-304)
[2019-01-09 04:51] LABS: Band Neutrophils 3 % (0-10); Hypochromasia 2+; Lymphocytes 11 % (20-55); Nucleated Red Blood Cells 1 (0-5); Platelet Estimate Normal; Polychromasia Few; Segmented Neutrophils 82 % (50-85); Total Cells Counted 100
[2019-01-09 04:55] LABS: Albumin 1.9 G/DL (3.4-5.0); Calcium 6.9 MG/DL (8.5-10.1); Osmolality,Calculated 284.4 MOS/KG (273-304)
[2019-01-09] MEDS: INSULIN LISPRO 100 UNIT/ML SUBCUT SCH ×4 (07:30→20:33)
[2019-01-09] MEDS: PANTOPRAZOLE 40 MG TABLET PO SCH (09:32)
[2019-01-09] MEDS: cefTRIAXone 1,000 MG in SYRINGE 1 EACH IV SCH (09:32)
[2019-01-09] MEDS: CARVEDILOL 6.25 MG TABLET PO SCH ×2 (09:33→20:34)
[2019-01-09] MEDS: CALCITRIOL 0.25 MCG CAPSULE PO SCH (09:33)
[2019-01-09] MEDS: ZINC OXIDE PASTE 113 GM TUBE TOP SCH ×2 (09:33→20:33)
[2019-01-09] MEDS ORDERED: MAGNESIUM SULF RIDER 1 GM in PREMIX 1 EACH IV ONE (11:00)
[2019-01-09] MEDS ORDERED: MAGNESIUM SULF RIDER 50 ML IV ONE (12:51)
[2019-01-10 03:03] LABS: Basophils % 0.2 % (0.0-0.8); Eosinophils % 0.3 % (0.00-10.9); Hematocrit 32.4 VOL% (35.7-47.0); Immature Granulocytes % 5.1 %; Immature Granulocytes Absolute 0.63 #; Lymphocytes # 1.4 10*3/uL (1.4-4.0); Lymphocytes % 11.4 % (21.3-54.2); Mean Corpuscular HGB Conc 30.9 GM/DL (32-36); Mean Corpuscular Volume 91.8 FL (87-102); Mean Platelet Volume 11.7 FL (9.6-12.0); Monocytes % 5.3 % (1.7-12.7); NRBC # 0.09 10*3/uL; Neutrophils % 77.7 % (38.7-73.9); Platelet Count 175 T/CUMM (130-400); Red Blood Count 3.53 MC/CUMM (3.8-5.5); Red Cell Distribution Width 14.7 % (9.3-17.3); White Blood Count 12.3 T/CUMM (4-12)
[2019-01-10 03:22] LABS: Alanine Aminotransferase 16 U/L (13-56); Albumin 1.8 G/DL (3.4-5.0); Alkaline Phosphatase 117 U/L (45-117); Aspartate Amino Transferase 10 U/L (0-37); Bilirubin,Total < 0.39 MG/DL (0.2-1.0); Blood Urea Nitrogen 46 MG/DL (7-18); Calcium 6.6 MG/DL (8.5-10.1); Glucose 307 MG/DL (74-106); Total Protein 5.3 G/DL (6.4-8.3)
[2019-01-10 04:00] LABS: Eosinophils 2 % (0-10); Lymphocytes 8 % (20-55); Metamyelocytes 1 %; Platelet Estimate Adequate; Segmented Neutrophils 87 % (50-85); Total Cells Counted 100
[2019-01-10 04:01] LABS: Hypochromasia Slight; Polychromasia Few
[2019-01-10] MEDS: INSULIN LISPRO 100 UNIT/ML SUBCUT SCH ×4 (08:12→23:04)
[2019-01-10] MEDS ORDERED: LIDOCAINE 2% 5 ML VIAL ONE (10:00)
[2019-01-10] MEDS ORDERED: ETOMIDATE 20 MG/10 ML VIAL IV ONE (10:00)
[2019-01-10] MEDS ORDERED: PROPOFOL 200 MG/20 ML VIAL IV ONE (10:00)
[2019-01-10] MEDS: PANTOPRAZOLE 40 MG TABLET PO SCH (13:46)
[2019-01-10] MEDS: CALCITRIOL 0.25 MCG CAPSULE PO SCH (13:46)
[2019-01-10] MEDS: CARVEDILOL 6.25 MG TABLET PO SCH (13:47)
[2019-01-10] MEDS: ZINC OXIDE PASTE 113 GM TUBE TOP SCH ×2 (13:47→23:11)
[2019-01-10] MEDS: INSULIN GLARGINE 100 UNIT/ML SUBCUT SCH (16:31)
[2019-01-10 16:38] LABS: Apearance,Urine Slightly Hazy (Clear); Bilirubin,Urine Negative (Negative); Blood, Urine Moderate mg/dL (Negative); Glucose,Urine (UA) 150 mg/dL (Negative); Ketones,Urine Negative (Negative); Mucus,Urine Occasional /LPF (Occasional); Nitrite,Urine Negative (Negative); Protein,Urine 100 MG/DL; RBC,Urine 9 /HPF (0-4); Squamous Epithelial Cell,Urine Occasional /HPF (0-10); Urine Color Yellow (Yellow); Urine Specific Gravity 1.004 (1.001-1.035); Urine Urobilinogen < 2.0 EU/DL (0.2-1.0); WBC,Urine 77 /HPF (0-6)
[2019-01-10] MEDS: CARVEDILOL 12.5 MG TABLET PO SCH (17:44)
[2019-01-10] MEDS: DONEPEZIL 5 MG TABLET PO SCH (22:18)
[2019-01-11] MEDS: INSULIN LISPRO 100 UNIT/ML SUBCUT SCH ×4 (07:45→22:38)
[2019-01-11] MEDS: INSULIN GLARGINE 100 UNIT/ML SUBCUT SCH (08:34)
[2019-01-11] MEDS: PANTOPRAZOLE 40 MG TABLET PO SCH (08:35)
[2019-01-11] MEDS: CARVEDILOL 12.5 MG TABLET PO SCH (08:35)
[2019-01-11] MEDS: ZINC OXIDE PASTE 113 GM TUBE TOP SCH ×2 (09:21→22:40)
[2019-01-11] MEDS ORDERED: SODIUM CHLORIDE 0.9% 250 ML IV ONE (13:14)
[2019-01-11] MEDS: LEVOFLOXACIN INJ 250 MG in PREMIX 1 EACH IV SCH (13:15)
[2019-01-11] MEDS: CALCITRIOL 0.25 MCG CAPSULE PO SCH (13:32)
[2019-01-11] MEDS: CARVEDILOL 3.125 MG TABLET PO SCH (19:31)
[2019-01-11] MEDS: DONEPEZIL 5 MG TABLET PO SCH (22:39)
[2019-01-12 05:59] LABS: Basophils % 0.4 % (0.0-0.8); Eosinophils # 0.1 10*3/uL (0.0-0.87); Eosinophils % 0.8 % (0.00-10.9); Hematocrit 30.4 VOL% (35.7-47.0); Hemoglobin 9.6 GM/DL (12.0-16.0); Immature Granulocytes % 3.9 %; Immature Granulocytes Absolute 0.36 #; Lymphocytes # 1.7 10*3/uL (1.4-4.0); Lymphocytes % 18.8 % (21.3-54.2); Mean Corpuscular HGB Conc 31.6 GM/DL (32-36); Mean Corpuscular Volume 92.4 FL (87-102); Mean Platelet Volume 12.2 FL (9.6-12.0); Neutrophils % 69.1 % (38.7-73.9); Platelet Count 183 T/CUMM (130-400); Red Blood Count 3.29 MC/CUMM (3.8-5.5); Red Cell Distribution Width 15.2 % (9.3-17.3); White Blood Count 9.3 T/CUMM (4-12)
[2019-01-12 06:29] LABS: Calcium 6.4 MG/DL (8.5-10.1); Osmolality,Calculated 280.2 MOS/KG (273-304)
[2019-01-12] MEDS: INSULIN LISPRO 100 UNIT/ML SUBCUT SCH ×4 (08:47→21:00)
[2019-01-12] MEDS: INSULIN GLARGINE 100 UNIT/ML SUBCUT SCH (08:47)
[2019-01-12] MEDS ORDERED: TUBERCULIN SKIN TEST 0.1 ML SYRINGE INTRADERM ONE (09:05)
[2019-01-12] MEDS: CARVEDILOL 3.125 MG TABLET PO SCH ×2 (13:18→17:33)
[2019-01-12] MEDS: PANTOPRAZOLE 40 MG TABLET PO SCH (13:18)
[2019-01-12] MEDS: CALCITRIOL 0.25 MCG CAPSULE PO SCH (13:18)
[2019-01-12] MEDS: ZINC OXIDE PASTE 113 GM TUBE TOP SCH ×2 (13:19→21:00)
[2019-01-12] MEDS: DONEPEZIL 5 MG TABLET PO SCH (20:59)
[2019-01-13 05:24] LABS: Basophils # 0.1 10*3/uL (0.0-0.2); Basophils % 0.6 % (0.0-0.8); Eosinophils # 0.1 10*3/uL (0.0-0.87); Eosinophils % 0.8 % (0.00-10.9); Hematocrit 31.9 VOL% (35.7-47.0); Hemoglobin 9.8 GM/DL (12.0-16.0); Immature Granulocytes Absolute 0.27 #; Lymphocytes # 1.4 10*3/uL (1.4-4.0); Lymphocytes % 15.2 % (21.3-54.2); Mean Corpuscular HGB Conc 30.7 GM/DL (32-36); Mean Corpuscular Volume 92.7 FL (87-102); Mean Platelet Volume 12.7 FL (9.6-12.0); Monocytes % 9.1 % (1.7-12.7); Neutrophils % 71.3 % (38.7-73.9); Platelet Count 143 T/CUMM (130-400); Red Blood Count 3.44 MC/CUMM (3.8-5.5); Red Cell Distribution Width 15.5 % (9.3-17.3)
[2019-01-13] MEDS: INSULIN LISPRO 100 UNIT/ML SUBCUT SCH ×4 (08:22→21:20)
[2019-01-13] MEDS: CARVEDILOL 3.125 MG TABLET PO SCH ×2 (08:54→16:49)
[2019-01-13] MEDS: INSULIN GLARGINE 100 UNIT/ML SUBCUT SCH (08:54)
[2019-01-13] MEDS: PANTOPRAZOLE 40 MG TABLET PO SCH (08:54)
[2019-01-13] MEDS: ZINC OXIDE PASTE 113 GM TUBE TOP SCH ×2 (08:55→20:16)
[2019-01-13] MEDS: CALCITRIOL 0.25 MCG CAPSULE PO SCH (08:57)
[2019-01-13] MEDS: LEVOFLOXACIN INJ 250 MG in PREMIX 1 EACH IV SCH (10:57)
[2019-01-13] MEDS: DONEPEZIL 5 MG TABLET PO SCH (20:16)
[2019-01-14 07:16] LABS: Hematocrit 32.4 VOL% (35.7-47.0); Hemoglobin 9.9 GM/DL (12.0-16.0)
[2019-01-14] MEDS: INSULIN LISPRO 100 UNIT/ML SUBCUT SCH ×4 (08:00→21:00)
[2019-01-14] MEDS: CARVEDILOL 3.125 MG TABLET PO SCH ×2 (08:49→17:42)
[2019-01-14] MEDS: CALCITRIOL 0.25 MCG CAPSULE PO SCH (08:49)
[2019-01-14] MEDS: INSULIN GLARGINE 100 UNIT/ML SUBCUT SCH (08:50)
[2019-01-14] MEDS: ZINC OXIDE PASTE 113 GM TUBE TOP SCH ×2 (08:50→20:22)
[2019-01-14] MEDS: PANTOPRAZOLE 40 MG TABLET PO SCH (08:50)
[2019-01-14] MEDS: LOSARTAN 50 MG TABLET PO SCH (12:28)
[2019-01-14] MEDS: DONEPEZIL 5 MG TABLET PO SCH (20:22)
[2019-01-15] MEDS ORDERED: DEXTROSE 10% 250 ML BAG IV ONE (06:30)
[2019-01-15] MEDS ORDERED: DEXTROSE 10% 250 ML IV ONE (06:33)
[2019-01-15] MEDS: INSULIN LISPRO 100 UNIT/ML SUBCUT SCH ×2 (08:05→14:25)
[2019-01-15] MEDS: CARVEDILOL 3.125 MG TABLET PO SCH (09:39)
[2019-01-15] MEDS: INSULIN GLARGINE 100 UNIT/ML SUBCUT SCH (09:40)
[2019-01-15] MEDS: LEVOFLOXACIN INJ 250 MG in PREMIX 1 EACH IV SCH (14:24)
[2019-01-15] MEDS: CALCITRIOL 0.25 MCG CAPSULE PO SCH (14:24)
[2019-01-15] MEDS: LOSARTAN 50 MG TABLET PO SCH (14:24)
[2019-01-15] MEDS: PANTOPRAZOLE 40 MG TABLET PO SCH (14:24)
[2019-01-15] MEDS: ZINC OXIDE PASTE 113 GM TUBE TOP SCH (14:25)
[2019-01-15 16:02] VITALS: BP 119/65
== END 2019-01-15 16:19 | DRG 673 ==
LOC: EDUNIT# → EDBD → N.ED 19:23 → SUATTDRO 23:25 → N.EDINP 23:25 → N.CC 01-05 01:55 → N.5E 01-05 18:40 → N.CC 01-08 18:40 → N.2E 01-10 18:46
PROVIDERS: ADMIT Internal Medicine; ATTEND Internal Medicine

== ENCOUNTER 2019-03-04 09:09 | Inpatient (IN) ==
[2019-03-04] MEDS ORDERED: ONDANSETRON 4 MG/2 ML VIAL IV STA (09:23)
[2019-03-04] MEDS ORDERED: HYDROmorphone 2 MG/1 ML VIAL IV STA (09:23)
[2019-03-04 10:37] LABS: Basophils % 0.6 % (0.0-0.8); Eosinophils # 0.5 10*3/uL (0.0-0.87); Eosinophils % 7.5 % (0.00-10.9); Hematocrit 24.2 VOL% (35.7-47.0); Hemoglobin 7.4 GM/DL (12.0-16.0); Immature Granulocytes % 0.8 %; Immature Granulocytes Absolute 0.05 #; Lymphocytes # 1.3 10*3/uL (1.4-4.0); Lymphocytes % 20.1 % (21.3-54.2); Mean Corpuscular HGB Conc 30.6 GM/DL (32-36); Mean Corpuscular Volume 94.5 FL (87-102); Mean Platelet Volume 10.4 FL (9.6-12.0); Monocytes % 6.8 % (1.7-12.7); Neutrophils % 64.2 % (38.7-73.9); Platelet Count 258 T/CUMM (130-400); Red Blood Count 2.56 MC/CUMM (3.8-5.5); Red Cell Distribution Width 17.1 % (9.3-17.3); White Blood Count 6.4 T/CUMM (4-12)
[2019-03-04 11:40] LABS: Sedimentation Rate-Westergren 111 MM/HR (0-30)
[2019-03-04 12:12] LABS: Bilirubin,Total 0.47 MG/DL (0.2-1.0); Osmolality,Calculated 293.1 MOS/KG (273-304); Total Protein 7.6 G/DL (6.4-8.3)
[2019-03-04] MEDS ORDERED: ONDANSETRON 4 MG/2 ML VIAL IV PRN (12:38)
[2019-03-04] MEDS ORDERED: DEXTROSE 50% 25 GM/50 ML VIAL IV PRN (12:38)
[2019-03-04] MEDS ORDERED: GLUCAGON 1 MG VIAL IM PRN (12:38)
[2019-03-04] MEDS ORDERED: ACETAMINOPHEN 325 MG TABLET PO PRN (12:38)
[2019-03-04] MEDS ORDERED: BISACODYL 5 MG TABLET PO PRN (12:43)
[2019-03-04] MEDS ORDERED: ENOXAPARIN 30 MG/0.3 ML SYRINGE SUBCUT SCH (13:00)
[2019-03-04] MEDS ORDERED: CEFTAROLINE 600 MG VIAL IV ONE (15:21)
[2019-03-04] MEDS: SODIUM CHLORIDE 0.45% 1,000 ML IV SCH (15:27)
[2019-03-04] MEDS: INSULIN LISPRO 100 UNIT/ML SUBCUT SCH ×3 (16:30→22:06)
[2019-03-04] MEDS: CEFTAROLINE 200 MG in SODIUM CHLORIDE 0.9% 100 ML IV SCH (17:15)
[2019-03-04] MEDS: CARVEDILOL 3.125 MG TABLET PO SCH (17:16)
[2019-03-04] MEDS: DONEPEZIL 5 MG TABLET PO SCH (22:03)
[2019-03-04] MEDS: DOCUSATE SODIUM 100 MG CAPSULE PO SCH (22:03)
[2019-03-04] MEDS: ZINC OXIDE PASTE 113 GM TUBE TOP SCH (22:10)
[2019-03-05] MEDS: CEFTAROLINE 200 MG in SODIUM CHLORIDE 0.9% 100 ML IV SCH ×2 (04:12→17:16)
[2019-03-05 05:49] LABS: Basophils % 0.5 % (0.0-0.8); Eosinophils # 0.4 10*3/uL (0.0-0.87); Hematocrit 27.4 VOL% (35.7-47.0); Hemoglobin 8.3 GM/DL (12.0-16.0); Immature Granulocytes % 1.1 %; Immature Granulocytes Absolute 0.08 #; Lymphocytes # 0.8 10*3/uL (1.4-4.0); Lymphocytes % 11.4 % (21.3-54.2); Mean Corpuscular HGB Conc 30.3 GM/DL (32-36); Mean Corpuscular Volume 95.5 FL (87-102); Mean Platelet Volume 11.8 FL (9.6-12.0); Monocytes % 5.3 % (1.7-12.7); Neutrophils % 75.7 % (38.7-73.9); Platelet Count 203 T/CUMM (130-400); Red Blood Count 2.87 MC/CUMM (3.8-5.5); Red Cell Distribution Width 16.9 % (9.3-17.3); White Blood Count 7.3 T/CUMM (4-12)
[2019-03-05 05:58] LABS: Calcium 9.3 MG/DL (8.5-10.1); Osmolality,Calculated 284.4 MOS/KG (273-304)
[2019-03-05 06:25] LABS: Hypochromasia Slight; Platelet Estimate Decreased
[2019-03-05] MEDS: HYDROmorphone 2 MG/1 ML VIAL IV PRN ×2 (07:20→21:35)
[2019-03-05] MEDS: LOSARTAN 50 MG TABLET PO SCH (08:32)
[2019-03-05] MEDS: CARVEDILOL 3.125 MG TABLET PO SCH (08:32)
[2019-03-05] MEDS: INSULIN GLARGINE 100 UNIT/ML SUBCUT SCH (08:34)
[2019-03-05] MEDS: INSULIN LISPRO 100 UNIT/ML SUBCUT SCH ×7 (08:35→21:36)
[2019-03-05] MEDS: DOCUSATE SODIUM 100 MG CAPSULE PO SCH ×2 (08:36→21:36)
[2019-03-05] MEDS: ZINC OXIDE PASTE 113 GM TUBE TOP SCH ×2 (08:37→21:36)
[2019-03-05] MEDS: CALCITRIOL 0.25 MCG CAPSULE PO SCH (08:37)
[2019-03-05] MEDS: PANTOPRAZOLE 40 MG TABLET PO SCH (08:37)
[2019-03-05] MEDS ORDERED: PANTOPRAZOLE 40 MG TABLET PO SCH (09:00)
[2019-03-05] MEDS: SODIUM CHLORIDE 0.45% 1,000 ML IV SCH (10:26)
[2019-03-05] MEDS ORDERED: PROPOFOL 200 MG/20 ML VIAL IV ONE (12:19)
[2019-03-05] MEDS ORDERED: fentaNYL 100 MCG/2 ML VIAL ONE (12:19)
[2019-03-05] MEDS ORDERED: MIDAZOLAM 2 MG/2 ML VIAL ONE (12:19)
[2019-03-05] MEDS ORDERED: SEVOFLURANE 1 UNIT/15 MINUTE INH ONE (12:19)
[2019-03-05] MEDS ORDERED: GLYCOPYRROLATE 0.4 MG/2 ML VIAL ONE (12:20)
[2019-03-05] MEDS ORDERED: ePHEDrine 50 MG/ML AMP ONE (12:20)
[2019-03-05] MEDS ORDERED: DEXTROSE 10% 250 ML IV ONE (17:11)
[2019-03-05] MEDS ORDERED: DEXTROSE 50% 25 GM/50 ML VIAL IV PRN (17:12)
[2019-03-05] MEDS: DONEPEZIL 5 MG TABLET PO SCH (21:36)
[2019-03-05] MEDS: ROSUVASTATIN 20 MG TABLET PO SCH (21:36)
[2019-03-05] MEDS: CARVEDILOL 6.25 MG TABLET PO SCH (21:36)
[2019-03-06] MEDS: CEFTAROLINE 200 MG in SODIUM CHLORIDE 0.9% 100 ML IV SCH ×2 (04:38→17:06)
[2019-03-06 04:49] LABS: Basophils % 0.5 % (0.0-0.8); Eosinophils # 0.5 10*3/uL (0.0-0.87); Eosinophils % 9.1 % (0.00-10.9); Hematocrit 28.1 VOL% (35.7-47.0); Hemoglobin 8.8 GM/DL (12.0-16.0); Immature Granulocytes % 0.9 %; Immature Granulocytes Absolute 0.05 #; Lymphocytes # 1.4 10*3/uL (1.4-4.0); Lymphocytes % 23.5 % (21.3-54.2); Mean Corpuscular HGB Conc 31.3 GM/DL (32-36); Mean Platelet Volume 10.9 FL (9.6-12.0); Monocytes % 8.2 % (1.7-12.7); Neutrophils % 57.8 % (38.7-73.9); Platelet Count 318 T/CUMM (130-400); Red Blood Count 2.99 MC/CUMM (3.8-5.5); Red Cell Distribution Width 16.8 % (9.3-17.3); White Blood Count 5.8 T/CUMM (4-12)
[2019-03-06 05:23] LABS: Bilirubin,Total 0.4 MG/DL (0.2-1.0); Osmolality,Calculated 285.3 MOS/KG (273-304); Total Protein 7.5 G/DL (6.4-8.3); Uric Acid 4.7 MG/DL (2.6-6.0)
[2019-03-06] MEDS: SODIUM CHLORIDE 0.45% 1,000 ML IV SCH (05:50)
[2019-03-06] MEDS: INSULIN LISPRO 100 UNIT/ML SUBCUT SCH ×6 (08:02→20:36)
[2019-03-06] MEDS: INSULIN GLARGINE 100 UNIT/ML SUBCUT SCH (08:27)
[2019-03-06] MEDS: LOSARTAN 50 MG TABLET PO SCH (08:32)
[2019-03-06] MEDS: CARVEDILOL 6.25 MG TABLET PO SCH ×2 (08:32→21:25)
[2019-03-06] MEDS: DOCUSATE SODIUM 100 MG CAPSULE PO SCH ×2 (08:32→21:24)
[2019-03-06] MEDS: CALCITRIOL 0.25 MCG CAPSULE PO SCH (08:33)
[2019-03-06] MEDS: PANTOPRAZOLE 40 MG TABLET PO SCH (08:33)
[2019-03-06] MEDS: ZINC OXIDE PASTE 113 GM TUBE TOP SCH ×2 (09:23→21:16)
[2019-03-06] MEDS: ROSUVASTATIN 20 MG TABLET PO SCH (21:24)
[2019-03-06] MEDS: DONEPEZIL 5 MG TABLET PO SCH (21:25)
[2019-03-07] MEDS: CEFTAROLINE 200 MG in SODIUM CHLORIDE 0.9% 100 ML IV SCH ×2 (04:04→20:28)
[2019-03-07 05:32] LABS: Basophils % 0.3 % (0.0-0.8); Eosinophils # 0.3 10*3/uL (0.0-0.87); Eosinophils % 4.5 % (0.00-10.9); Hematocrit 24.2 VOL% (35.7-47.0); Hemoglobin 7.6 GM/DL (12.0-16.0); Immature Granulocytes % 1.4 %; Lymphocytes # 1.1 10*3/uL (1.4-4.0); Lymphocytes % 15.8 % (21.3-54.2); Mean Corpuscular HGB Conc 31.4 GM/DL (32-36); Mean Corpuscular Volume 94.2 FL (87-102); Mean Platelet Volume 10.9 FL (9.6-12.0); Monocytes % 6.1 % (1.7-12.7); Neutrophils % 71.9 % (38.7-73.9); Platelet Count 275 T/CUMM (130-400); Red Blood Count 2.57 MC/CUMM (3.8-5.5); Red Cell Distribution Width 16.8 % (9.3-17.3); White Blood Count 6.9 T/CUMM (4-12)
[2019-03-07] MEDS: SODIUM CHLORIDE 0.45% 1,000 ML IV SCH ×2 (05:38→21:54)
[2019-03-07] MEDS: HYDROmorphone 2 MG/1 ML VIAL IV PRN (05:50)
[2019-03-07 06:19] LABS: Albumin 2.9 G/DL (3.4-5.0); Bilirubin,Total 0.4 MG/DL (0.2-1.0); Calcium 8.9 MG/DL (8.5-10.1); Osmolality,Calculated 293.3 MOS/KG (273-304); Total Protein 7.1 G/DL (6.4-8.3)
[2019-03-07] MEDS: INSULIN LISPRO 100 UNIT/ML SUBCUT SCH ×4 (07:48→21:51)
[2019-03-07] MEDS: LOSARTAN 50 MG TABLET PO SCH (09:48)
[2019-03-07] MEDS: CALCITRIOL 0.25 MCG CAPSULE PO SCH (09:48)
[2019-03-07] MEDS: CARVEDILOL 6.25 MG TABLET PO SCH ×2 (09:48→20:29)
[2019-03-07] MEDS: PANTOPRAZOLE 40 MG TABLET PO SCH (09:48)
[2019-03-07] MEDS: DOCUSATE SODIUM 100 MG CAPSULE PO SCH ×2 (09:48→20:29)
[2019-03-07] MEDS: ZINC OXIDE PASTE 113 GM TUBE TOP SCH ×2 (10:00→20:29)
[2019-03-07] MEDS: INSULIN GLARGINE 100 UNIT/ML SUBCUT SCH (10:16)
[2019-03-07] MEDS ORDERED: HEPARIN 10,000 UNIT/10 ML VIAL IV PRN (11:54)
[2019-03-07 17:50] LABS: PT Patient Result 10.8 SECS
[2019-03-07] MEDS: DONEPEZIL 5 MG TABLET PO SCH (20:29)
[2019-03-07] MEDS: ROSUVASTATIN 20 MG TABLET PO SCH (20:29)
[2019-03-08] MEDS: CEFTAROLINE 200 MG in SODIUM CHLORIDE 0.9% 100 ML IV SCH ×2 (03:24→16:31)
[2019-03-08 05:36] LABS: Basophils % 0.5 % (0.0-0.8); Eosinophils # 0.4 10*3/uL (0.0-0.87); Hematocrit 23.5 VOL% (35.7-47.0); Hemoglobin 7.3 GM/DL (12.0-16.0); Immature Granulocytes Absolute 0.06 #; Lymphocytes # 1.4 10*3/uL (1.4-4.0); Lymphocytes % 21.4 % (21.3-54.2); Mean Corpuscular HGB Conc 31.1 GM/DL (32-36); Mean Corpuscular Volume 94.8 FL (87-102); Mean Platelet Volume 10.6 FL (9.6-12.0); Monocytes % 8.2 % (1.7-12.7); Neutrophils % 62.9 % (38.7-73.9); Platelet Count 258 T/CUMM (130-400); Red Blood Count 2.48 MC/CUMM (3.8-5.5); White Blood Count 6.3 T/CUMM (4-12)
[2019-03-08 05:52] LABS: Calcium 8.9 MG/DL (8.5-10.1); Osmolality,Calculated 287.1 MOS/KG (273-304)
[2019-03-08] MEDS ORDERED: MIDAZOLAM 2 MG/2 ML VIAL IV ONE (06:00)
[2019-03-08] MEDS ORDERED: fentaNYL 100 MCG/2 ML VIAL IV ONE (06:00)
[2019-03-08] MEDS ORDERED: ceFAZolin 1,000 MG in SYRINGE 1 EACH IV ONE (06:00)
[2019-03-08] MEDS ORDERED: SODIUM CHLORIDE 0.9% 1,000 ML IV PRN (07:27)
[2019-03-08] MEDS ORDERED: HEPARIN/NACL 0.9% 2 UNITS/ML 2,000 ML IV ONE (07:43)
[2019-03-08] MEDS: INSULIN LISPRO 100 UNIT/ML SUBCUT SCH ×4 (07:50→21:00)
[2019-03-08] MEDS: LOSARTAN 50 MG TABLET PO SCH (08:00)
[2019-03-08] MEDS: CARVEDILOL 6.25 MG TABLET PO SCH ×2 (08:01→20:58)
[2019-03-08] MEDS ORDERED: fentaNYL 100 MCG/2 ML VIAL ONE (08:22)
[2019-03-08] MEDS ORDERED: MIDAZOLAM 2 MG/2 ML VIAL ONE (08:22)
[2019-03-08] MEDS: INSULIN GLARGINE 100 UNIT/ML SUBCUT SCH (08:58)
[2019-03-08] MEDS ORDERED: RIFAPENTINE PO SCH ×2 (09:00→21:00)
[2019-03-08] MEDS ORDERED: ISONIAZID 300 MG TABLET PO SCH ×2 (09:00→21:00)
[2019-03-08] MEDS ORDERED: HEPARIN 5,000 UNIT/1 ML VIAL IV ONE (09:14)
[2019-03-08] MEDS: DOCUSATE SODIUM 100 MG CAPSULE PO SCH ×2 (11:48→20:58)
[2019-03-08] MEDS: CALCITRIOL 0.25 MCG CAPSULE PO SCH (11:49)
[2019-03-08] MEDS: PANTOPRAZOLE 40 MG TABLET PO SCH (11:49)
[2019-03-08] MEDS: SODIUM CHLORIDE 0.45% 1,000 ML IV SCH (14:21)
[2019-03-08] MEDS: ZINC OXIDE PASTE 113 GM TUBE TOP SCH ×2 (16:31→21:04)
[2019-03-08] MEDS: DONEPEZIL 5 MG TABLET PO SCH (20:58)
[2019-03-08] MEDS: ROSUVASTATIN 20 MG TABLET PO SCH (20:58)
[2019-03-09] MEDS: SODIUM CHLORIDE 0.45% 1,000 ML IV SCH ×2 (03:24→14:59)
[2019-03-09] MEDS: CEFTAROLINE 200 MG in SODIUM CHLORIDE 0.9% 100 ML IV SCH ×2 (03:27→18:04)
[2019-03-09 06:06] LABS: Calcium 8.5 MG/DL (8.5-10.1); Osmolality,Calculated 288.7 MOS/KG (273-304)
[2019-03-09] MEDS: INSULIN LISPRO 100 UNIT/ML SUBCUT SCH ×3 (08:02→19:21)
[2019-03-09] MEDS: INSULIN GLARGINE 100 UNIT/ML SUBCUT SCH (08:02)
[2019-03-09] MEDS: CALCITRIOL 0.25 MCG CAPSULE PO SCH (08:08)
[2019-03-09] MEDS: LOSARTAN 50 MG TABLET PO SCH (08:09)
[2019-03-09] MEDS: CARVEDILOL 6.25 MG TABLET PO SCH (08:09)
[2019-03-09] MEDS: PANTOPRAZOLE 40 MG TABLET PO SCH (08:09)
[2019-03-09] MEDS: DOCUSATE SODIUM 100 MG CAPSULE PO SCH (08:17)
[2019-03-09] MEDS: ZINC OXIDE PASTE 113 GM TUBE TOP SCH (14:20)
[2019-03-09 16:02] VITALS: BP 135/77
== END 2019-03-09 18:39 | DRG 239 ==
LOC: EDBD → EDUNIT# → N.ED 09:09 → N.EDINP 12:38 → N.3E 15:19
PROVIDERS: ADMIT Internal Medicine; ATTEND Internal Medicine

== ENCOUNTER 2019-07-14 15:07 | Observation (INO) ==
[2019-07-14 15:55] LABS: Basophils % 0.6 % (0.0-0.8); Eosinophils # 0.2 10*3/uL (0.0-0.87); Hematocrit 41.4 VOL% (35.7-47.0); Hemoglobin 13.7 GM/DL (12.0-16.0); Immature Granulocytes % 1.1 %; Immature Granulocytes Absolute 0.07 #; Lymphocytes # 1.2 10*3/uL (1.4-4.0); Lymphocytes % 19.8 % (21.3-54.2); Mean Corpuscular HGB Conc 33.1 GM/DL (32-36); Mean Corpuscular Volume 92.6 FL (87-102); Mean Platelet Volume 11.1 FL (9.6-12.0); Monocytes % 5.6 % (1.7-12.7); Neutrophils % 69.9 % (38.7-73.9); Platelet Count 237 T/CUMM (130-400); Red Blood Count 4.47 MC/CUMM (3.8-5.5); Red Cell Distribution Width 15.7 % (9.3-17.3); White Blood Count 6.3 T/CUMM (4-12)
[2019-07-14 16:15] LABS: Albumin 3.7 G/DL (3.4-5.0); Bilirubin,Total 0.4 MG/DL (0.2-1.0); Calcium 9.1 MG/DL (8.5-10.1); Osmolality,Calculated 286.3 MOS/KG (273-304); Total Protein 7.8 G/DL (6.4-8.3)
[2019-07-14 16:23] LABS: PT Patient Result 10.5 SECS (9.6-12.2)
[2019-07-14] MEDS ORDERED: ACETAMINOPHEN 325 MG TABLET PO PRN (17:26)
[2019-07-14] MEDS ORDERED: ONDANSETRON 4 MG/2 ML VIAL IV PRN (17:26)
[2019-07-14] MEDS ORDERED: hydrALAZINE 20 MG/1 ML VIAL IV STA (17:32)
[2019-07-14 17:44] LABS: Apearance,Urine CLEAR (Clear); Bilirubin,Urine Negative (Negative); Blood, Urine Negative (Negative); Glucose,Urine (UA) >=500 mg/dL (Negative); Hyaline Casts,Urine 1 /LPF (0-3); Ketones,Urine Negative (Negative); Mucus,Urine Occasional /LPF (Occasional); Nitrite,Urine Negative (Negative); Protein,Urine >=500 MG/DL; RBC,Urine 5 /HPF (0-4); Urine Color Yellow (Yellow); Urine Specific Gravity 1.011 (1.001-1.035); Urine Urobilinogen < 2.0 EU/DL (0.2-1.0); WBC,Urine 1 /HPF (0-6)
[2019-07-14] MEDS: cloNIDine 0.1 MG TABLET PO PRN (21:12)
[2019-07-15 01:50] LABS: Basophils % 0.4 % (0.0-0.8); Eosinophils # 0.1 10*3/uL (0.0-0.87); Eosinophils % 2.5 % (0.00-10.9); Hematocrit 33.6 VOL% (35.7-47.0); Hemoglobin 11.1 GM/DL (12.0-16.0); Immature Granulocytes % 0.4 %; Immature Granulocytes Absolute 0.02 #; Lymphocytes # 1.5 10*3/uL (1.4-4.0); Lymphocytes % 31.5 % (21.3-54.2); Mean Corpuscular Volume 92.3 FL (87-102); Mean Platelet Volume 10.4 FL (9.6-12.0); Monocytes % 7.9 % (1.7-12.7); Neutrophils % 57.3 % (38.7-73.9); Platelet Count 205 T/CUMM (130-400); Red Blood Count 3.64 MC/CUMM (3.8-5.5); Red Cell Distribution Width 15.7 % (9.3-17.3); White Blood Count 4.8 T/CUMM (4-12)
[2019-07-15 02:19] LABS: Alanine Aminotransferase 10 U/L (13-56); Albumin 2.9 G/DL (3.4-5.0); Alkaline Phosphatase 77 U/L (45-117); Aspartate Amino Transferase 12 U/L (0-37); Bilirubin,Total < 0.39 MG/DL (0.2-1.0); Blood Urea Nitrogen 24 MG/DL (7-18); Calcium 8.6 MG/DL (8.5-10.1); Estimated Glom Filtration Rate 8 ML/MIN; Glucose 191 MG/DL (74-106); Osmolality,Calculated 291.1 MOS/KG (273-304); Total Protein 6.1 G/DL (6.4-8.3)
[2019-07-15] MEDS: PANTOPRAZOLE 40 MG VIAL IV SCH (09:26)
[2019-07-15] MEDS: cloNIDine 0.1 MG TABLET PO PRN ×2 (09:26→13:15)
[2019-07-15 11:41] LABS: Hematocrit 35.3 VOL% (35.7-47.0); Hemoglobin 11.8 GM/DL (12.0-16.0)
[2019-07-15 17:22] LABS: Hematocrit 33.8 VOL% (35.7-47.0); Hemoglobin 11.1 GM/DL (12.0-16.0)
[2019-07-15] MEDS: INSULIN LISPRO 100 UNIT/ML SUBCUT SCH (20:52)
[2019-07-15 23:40] LABS: Hematocrit 32.5 VOL% (35.7-47.0); Hemoglobin 10.8 GM/DL (12.0-16.0)
[2019-07-16 05:17] LABS: Hematocrit 34.9 VOL% (35.7-47.0); Hemoglobin 11.8 GM/DL (12.0-16.0)
[2019-07-16] MEDS: cloNIDine 0.1 MG TABLET PO PRN (05:33)
[2019-07-16] MEDS: PANTOPRAZOLE 40 MG VIAL IV SCH (09:29)
[2019-07-16] MEDS: INSULIN LISPRO 100 UNIT/ML SUBCUT SCH ×4 (09:29→22:05)
[2019-07-16] MEDS: carvediloL 3.125 MG TABLET PO SCH ×2 (11:27→22:05)
[2019-07-16] MEDS: PANTOPRAZOLE 40 MG TABLET PO SCH (11:27)
[2019-07-16] MEDS: LOSARTAN 50 MG TABLET PO SCH (11:27)
[2019-07-16] MEDS: SERTRALINE 50 MG TABLET PO SCH (11:27)
[2019-07-16] MEDS ORDERED: QUEtiapine 25 MG TABLET PO ONE (15:58)
[2019-07-16] MEDS ORDERED: BISACODYL 5 MG TABLET PO PRN (16:38)
[2019-07-16] MEDS: SEVELAMER CARBONATE 800 MG TABLET PO SCH (18:43)
[2019-07-16] MEDS: DONEPEZIL 5 MG TABLET PO SCH (22:04)
[2019-07-16] MEDS: MEMANTINE 10 MG TABLET PO SCH (22:04)
[2019-07-16] MEDS: DOCUSATE SODIUM 100 MG CAPSULE PO SCH (22:05)
[2019-07-17] MEDS: INSULIN LISPRO 100 UNIT/ML SUBCUT SCH ×4 (08:26→22:03)
[2019-07-17] MEDS: SEVELAMER CARBONATE 800 MG TABLET PO SCH ×3 (08:35→17:37)
[2019-07-17] MEDS: LOSARTAN 50 MG TABLET PO SCH (13:00)
[2019-07-17] MEDS: FOLIC ACID 1 MG TABLET PO SCH (13:00)
[2019-07-17] MEDS: PANTOPRAZOLE 40 MG TABLET PO SCH (13:01)
[2019-07-17] MEDS: ASPIRIN EC 81 MG TABLET PO SCH (13:01)
[2019-07-17] MEDS: INSULIN GLARGINE 100 UNIT/ML SUBCUT SCH (13:01)
[2019-07-17] MEDS: carvediloL 3.125 MG TABLET PO SCH ×2 (13:01→22:03)
[2019-07-17] MEDS: SERTRALINE 50 MG TABLET PO SCH (13:01)
[2019-07-17] MEDS: DOCUSATE SODIUM 100 MG CAPSULE PO SCH ×2 (13:01→22:03)
[2019-07-17] MEDS: cloNIDine 0.1 MG TABLET PO PRN (15:41)
[2019-07-17] MEDS: QUEtiapine 25 MG TABLET PO SCH (22:02)
[2019-07-17] MEDS: DONEPEZIL 5 MG TABLET PO SCH (22:03)
[2019-07-17] MEDS: MEMANTINE 10 MG TABLET PO SCH (22:03)
[2019-07-18 06:08] LABS: Basophils % 0.4 % (0.0-0.8); Eosinophils # 0.2 10*3/uL (0.0-0.87); Eosinophils % 2.9 % (0.00-10.9); Hematocrit 36.2 VOL% (35.7-47.0); Hemoglobin 12.3 GM/DL (12.0-16.0); Immature Granulocytes % 0.6 %; Immature Granulocytes Absolute 0.03 #; Lymphocytes # 1.5 10*3/uL (1.4-4.0); Lymphocytes % 29.1 % (21.3-54.2); Mean Corpuscular Volume 90.7 FL (87-102); Mean Platelet Volume 11.8 FL (9.6-12.0); Monocytes % 9.4 % (1.7-12.7); Neutrophils % 57.6 % (38.7-73.9); Platelet Count 209 T/CUMM (130-400); Red Blood Count 3.99 MC/CUMM (3.8-5.5); Red Cell Distribution Width 15.8 % (9.3-17.3); White Blood Count 5.2 T/CUMM (4-12)
[2019-07-18 06:27] LABS: Albumin 2.9 G/DL (3.4-5.0); Bilirubin,Total 0.6 MG/DL (0.2-1.0); Calcium 9.1 MG/DL (8.5-10.1); Total Protein 6.3 G/DL (6.4-8.3)
[2019-07-18] MEDS: INSULIN GLARGINE 100 UNIT/ML SUBCUT SCH (07:20)
[2019-07-18] MEDS: INSULIN LISPRO 100 UNIT/ML SUBCUT SCH ×4 (08:31→21:14)
[2019-07-18] MEDS: FOLIC ACID 1 MG TABLET PO SCH (09:03)
[2019-07-18] MEDS: SEVELAMER CARBONATE 800 MG TABLET PO SCH ×3 (09:03→16:50)
[2019-07-18] MEDS: PANTOPRAZOLE 40 MG TABLET PO SCH (09:04)
[2019-07-18] MEDS: ASPIRIN EC 81 MG TABLET PO SCH (09:04)
[2019-07-18] MEDS: carvediloL 3.125 MG TABLET PO SCH ×2 (09:04→21:11)
[2019-07-18] MEDS: LOSARTAN 50 MG TABLET PO SCH (09:04)
[2019-07-18] MEDS: SERTRALINE 50 MG TABLET PO SCH (09:04)
[2019-07-18] MEDS: DOCUSATE SODIUM 100 MG CAPSULE PO SCH ×2 (09:04→21:12)
[2019-07-18] MEDS: MEMANTINE 10 MG TABLET PO SCH (21:12)
[2019-07-18] MEDS: QUEtiapine 25 MG TABLET PO SCH (21:12)
[2019-07-18] MEDS: DONEPEZIL 5 MG TABLET PO SCH (21:12)
[2019-07-19] MEDS: INSULIN GLARGINE 100 UNIT/ML SUBCUT SCH (06:45)
[2019-07-19] MEDS: INSULIN LISPRO 100 UNIT/ML SUBCUT SCH ×3 (07:57→16:00)
[2019-07-19] MEDS: SEVELAMER CARBONATE 800 MG TABLET PO SCH ×2 (08:53→13:45)
[2019-07-19] MEDS ORDERED: HEPARIN 10,000 UNIT/10 ML VIAL IV SCH (11:00)
[2019-07-19] MEDS: ASPIRIN EC 81 MG TABLET PO SCH (13:41)
[2019-07-19] MEDS: LOSARTAN 50 MG TABLET PO SCH (13:44)
[2019-07-19] MEDS: DOCUSATE SODIUM 100 MG CAPSULE PO SCH (13:44)
[2019-07-19] MEDS: carvediloL 3.125 MG TABLET PO SCH (13:44)
[2019-07-19] MEDS: PANTOPRAZOLE 40 MG TABLET PO SCH (13:44)
[2019-07-19] MEDS: SERTRALINE 50 MG TABLET PO SCH (13:44)
[2019-07-19] MEDS: FOLIC ACID 1 MG TABLET PO SCH (13:44)
[2019-07-19 16:02] VITALS: BP 148/73
== END 2019-07-19 16:15 ==
LOC: EDBD → EDUNIT# → N.ED 15:07 → N.EDINP 15:07 → N.TELEN 18:37
PROVIDERS: ADMIT Internal Medicine; ATTEND Internal Medicine

== ENCOUNTER 2020-05-20 17:21 | Inpatient (IN) ==
[2020-05-20] MEDS ORDERED: SODIUM CHLORIDE 0.9% 500 ML IV STA (17:42)
[2020-05-20 18:17] LABS: Basophils % 0.5 % (0.0-0.8); Eosinophils # 0.1 10*3/uL (0.0-0.87); Eosinophils % 2.4 % (0.00-10.9); Hematocrit 32.5 VOL% (35.7-47.0); Hemoglobin 10.7 GM/DL (12.0-16.0); Immature Granulocytes % 0.9 %; Immature Granulocytes Absolute 0.05 #; Lymphocytes # 1.8 10*3/uL (1.4-4.0); Lymphocytes % 33.7 % (21.3-54.2); Mean Corpuscular HGB Conc 32.9 GM/DL (32-36); Mean Corpuscular Volume 92.9 FL (87-102); Mean Platelet Volume 10.9 FL (9.6-12.0); NRBC # 0.02 10*3/uL; Neutrophils % 55.5 % (38.7-73.9); Platelet Count 196 T/CUMM (130-400); Red Cell Distribution Width 15.8 % (9.3-17.3); White Blood Count 5.5 T/CUMM (4-12)
[2020-05-20] MEDS ORDERED: VANCOMYCIN INJ 1,000 MG in SODIUM CHLORIDE 0.9% 250 ML IV STA (18:30)
[2020-05-20 18:43] LABS: Alanine Aminotransferase 19 U/L (13-56); Albumin 3.5 G/DL (3.4-5.0); Alkaline Phosphatase 90 U/L (45-117); Aspartate Amino Transferase 21 U/L (0-37); Bilirubin,Total < 0.39 MG/DL (0.2-1.0); Blood Urea Nitrogen 10 MG/DL (7-18); Calcium 9.5 MG/DL (8.5-10.1); Glucose 178 MG/DL (74-106); Osmolality,Calculated 279.5 MOS/KG (273-304)
[2020-05-20 18:44] LABS: Estimated Glom Filtration Rate 0 ML/MIN
[2020-05-20] MEDS ORDERED: ACETAMINOPHEN 325 MG TABLET PO PRN (19:13)
[2020-05-20] MEDS ORDERED: DEXTROSE 50% 25 GM/50 ML VIAL IV PRN (19:13)
[2020-05-20] MEDS ORDERED: ONDANSETRON 4 MG/2 ML VIAL IV PRN (19:13)
[2020-05-20] MEDS ORDERED: GLUCAGON 1 MG VIAL IM PRN (19:13)
[2020-05-20] MEDS ORDERED: VANCOMYCIN INJ 500 MG in SODIUM CHLORIDE 0.9% 100 ML IV PRN (19:30)
[2020-05-20] MEDS ORDERED: DOCUSATE SODIUM 100 MG CAPSULE PO SCH (21:00)
[2020-05-20] MEDS ORDERED: NON-FORMULARY MEDICATION (Acetaminophen [Tylenol 8 Hour] 650 mg Tablet Extended Release) PO PRN (22:29)
[2020-05-20] MEDS ORDERED: POTASSIUM CHLORIDE 20 MEQ TABLET PO ONE (23:06)
[2020-05-20] MEDS: MEMANTINE 10 MG TABLET PO SCH (23:52)
[2020-05-20] MEDS: QUEtiapine 25 MG TABLET PO SCH (23:52)
[2020-05-20] MEDS: guaiFENesin/DM ER 600-30 MG TABLET PO SCH (23:52)
[2020-05-20] MEDS: ROSUVASTATIN 20 MG TABLET PO SCH (23:52)
[2020-05-20] MEDS: DOCUSATE SODIUM 100 MG CAPSULE PO SCH (23:52)
[2020-05-20] MEDS: NICOTINE 7 MG/24 HR PATCH TRANSDERM SCH (23:52)
[2020-05-20] MEDS: carvediloL 3.125 MG TABLET PO SCH (23:52)
[2020-05-21] MEDS: INSULIN REGULAR 100 UNIT/ML SUBCUT SCH ×4 (00:08→17:25)
[2020-05-21 06:07] LABS: Basophils % 0.6 % (0.0-0.8); Eosinophils # 0.2 10*3/uL (0.0-0.87); Eosinophils % 3.8 % (0.00-10.9); Hematocrit 30.3 VOL% (35.7-47.0); Hemoglobin 9.9 GM/DL (12.0-16.0); Immature Granulocytes % 0.8 %; Immature Granulocytes Absolute 0.04 #; Lymphocytes # 1.8 10*3/uL (1.4-4.0); Lymphocytes % 34.7 % (21.3-54.2); Mean Corpuscular HGB Conc 32.7 GM/DL (32-36); Mean Corpuscular Volume 95.3 FL (87-102); Mean Platelet Volume 11.3 FL (9.6-12.0); Monocytes % 9.8 % (1.7-12.7); Neutrophils % 50.3 % (38.7-73.9); Platelet Count 178 T/CUMM (130-400); Red Blood Count 3.18 MC/CUMM (3.8-5.5); Red Cell Distribution Width 15.8 % (9.3-17.3); White Blood Count 5.3 T/CUMM (4-12)
[2020-05-21 06:15] LABS: Albumin 3.1 G/DL (3.4-5.0); Bilirubin,Total 0.4 MG/DL (0.2-1.0); Calcium 9.2 MG/DL (8.5-10.1); Osmolality,Calculated 281.4 MOS/KG (273-304); Total Protein 6.1 G/DL (6.4-8.3)
[2020-05-21] MEDS: FAMOTIDINE 20 MG TABLET PO SCH (09:45)
[2020-05-21] MEDS: guaiFENesin/DM ER 600-30 MG TABLET PO SCH ×2 (09:45→22:38)
[2020-05-21] MEDS: FOLIC ACID 1 MG TABLET PO SCH (09:45)
[2020-05-21] MEDS: cloNIDine 0.1 MG TABLET PO SCH ×3 (09:45→21:15)
[2020-05-21] MEDS: carvediloL 3.125 MG TABLET PO SCH ×2 (09:45→16:13)
[2020-05-21] MEDS: ASPIRIN EC 81 MG TABLET PO SCH (09:45)
[2020-05-21] MEDS: SEVELAMER CARBONATE 800 MG TABLET PO SCH ×3 (09:45→16:13)
[2020-05-21] MEDS: calcitrioL 0.25 MCG CAPSULE PO SCH (09:45)
[2020-05-21] MEDS: LOSARTAN 50 MG TABLET PO SCH (09:45)
[2020-05-21] MEDS: INSULIN GLARGINE 100 UNIT/ML SUBCUT SCH (09:46)
[2020-05-21] MEDS: PANTOPRAZOLE 40 MG TABLET PO SCH (09:46)
[2020-05-21] MEDS: [UNRECOGNIZED DRUG - OTHER] PO SCH ×2 (09:47→21:02)
[2020-05-21] MEDS: NUT TX IMP RENAL FXN LAC REDUC PO SCH ×2 (09:47→16:13)
[2020-05-21] MEDS: AMINO AC PROTEIN HYDR WHEY PRO PO SCH ×2 (09:47→21:02)
[2020-05-21] MEDS: [UNRECOGNIZED DRUG - OTHER] PO SCH ×2 (09:47→16:13)
[2020-05-21] MEDS: BISACODYL 5 MG TABLET PO SCH (09:47)
[2020-05-21] MEDS: BILLION CELL PO SCH (09:48)
[2020-05-21] MEDS: [UNRECOGNIZED DRUG - OTHER] PO SCH (09:48)
[2020-05-21] MEDS: SERTRALINE 50 MG TABLET PO SCH (09:50)
[2020-05-21] MEDS: DOCUSATE SODIUM 100 MG CAPSULE PO SCH ×2 (10:01→21:16)
[2020-05-21] MEDS ORDERED: DONEPEZIL 5 MG TABLET PO SCH (21:00)
[2020-05-21] MEDS: ROSUVASTATIN 20 MG TABLET PO SCH (21:15)
[2020-05-21] MEDS: QUEtiapine 25 MG TABLET PO SCH (21:16)
[2020-05-21] MEDS: MEMANTINE 10 MG TABLET PO SCH (21:16)
[2020-05-21] MEDS: NICOTINE 7 MG/24 HR PATCH TRANSDERM SCH (22:40)
[2020-05-22] MEDS: INSULIN REGULAR 100 UNIT/ML SUBCUT SCH ×4 (03:21→17:21)
[2020-05-22 06:36] LABS: Basophils % 0.9 % (0.0-0.8); Eosinophils # 0.2 10*3/uL (0.0-0.87); Eosinophils % 4.7 % (0.00-10.9); Hematocrit 31.5 VOL% (35.7-47.0); Hemoglobin 10.3 GM/DL (12.0-16.0); Immature Granulocytes % 0.7 %; Immature Granulocytes Absolute 0.03 #; Lymphocytes # 1.8 10*3/uL (1.4-4.0); Lymphocytes % 39.8 % (21.3-54.2); Mean Corpuscular HGB Conc 32.7 GM/DL (32-36); Mean Corpuscular Volume 93.2 FL (87-102); Mean Platelet Volume 11.4 FL (9.6-12.0); Neutrophils % 43.9 % (38.7-73.9); Platelet Count 184 T/CUMM (130-400); Red Blood Count 3.38 MC/CUMM (3.8-5.5); Red Cell Distribution Width 15.6 % (9.3-17.3); White Blood Count 4.5 T/CUMM (4-12)
[2020-05-22 06:55] LABS: Calcium 9.1 MG/DL (8.5-10.1); Osmolality,Calculated 282.5 MOS/KG (273-304); Uric Acid 2.9 MG/DL (2.6-6.0)
[2020-05-22] MEDS ORDERED: ISONIAZID 300 MG TABLET PO SCH (09:00)
[2020-05-22] MEDS ORDERED: HEPARIN 10,000 UNIT/10 ML VIAL ONE (11:11)
[2020-05-22] MEDS: carvediloL 3.125 MG TABLET PO SCH ×2 (11:48→17:22)
[2020-05-22] MEDS: SEVELAMER CARBONATE 800 MG TABLET PO SCH ×3 (11:49→17:39)
[2020-05-22] MEDS: cloNIDine 0.1 MG TABLET PO SCH ×2 (11:50→16:17)
[2020-05-22] MEDS: ASPIRIN EC 81 MG TABLET PO SCH (11:50)
[2020-05-22] MEDS: DOCUSATE SODIUM 100 MG CAPSULE PO SCH (11:50)
[2020-05-22] MEDS: LOSARTAN 50 MG TABLET PO SCH (11:51)
[2020-05-22] MEDS: FOLIC ACID 1 MG TABLET PO SCH (11:51)
[2020-05-22] MEDS: BISACODYL 5 MG TABLET PO SCH (11:51)
[2020-05-22] MEDS: FAMOTIDINE 20 MG TABLET PO SCH (11:52)
[2020-05-22] MEDS: INSULIN GLARGINE 100 UNIT/ML SUBCUT SCH (11:52)
[2020-05-22] MEDS: SERTRALINE 50 MG TABLET PO SCH (11:53)
[2020-05-22] MEDS: calcitrioL 0.25 MCG CAPSULE PO SCH (11:53)
[2020-05-22] MEDS: guaiFENesin/DM ER 600-30 MG TABLET PO SCH (11:53)
[2020-05-22] MEDS: PANTOPRAZOLE 40 MG TABLET PO SCH (11:53)
[2020-05-22] MEDS: [UNRECOGNIZED DRUG - OTHER] PO SCH (11:54)
[2020-05-22] MEDS: AMINO AC PROTEIN HYDR WHEY PRO PO SCH (11:54)
[2020-05-22] MEDS: NUT TX IMP RENAL FXN LAC REDUC PO SCH (11:54)
[2020-05-22] MEDS: [UNRECOGNIZED DRUG - OTHER] PO SCH (11:54)
[2020-05-22] MEDS: [UNRECOGNIZED DRUG - OTHER] PO SCH (11:54)
[2020-05-22] MEDS: BILLION CELL PO SCH (11:54)
[2020-05-22 16:18] VITALS: BP 130/56
== END 2020-05-22 18:22 | DRG 949 ==
LOC: EDUNIT# → EDBD → N.ED 17:21 → N.EDINP 19:12 → N.3E 20:39
PROVIDERS: ADMIT Internal Medicine; ATTEND Internal Medicine

== ENCOUNTER 2020-10-16 17:13 | Observation (INO) ==
[2020-10-16 17:58] LABS: Basophils % 0.6 % (0.0-0.8); Eosinophils # 0.2 10*3/uL (0.0-0.87); Eosinophils % 3.9 % (0.00-10.9); Hematocrit 37.5 VOL% (35.7-47.0); Hemoglobin 12.1 GM/DL (12.0-16.0); Immature Granulocytes % 0.6 %; Immature Granulocytes Absolute 0.03 #; Lymphocytes # 1.9 10*3/uL (1.4-4.0); Lymphocytes % 38.1 % (21.3-54.2); Mean Corpuscular HGB Conc 32.3 GM/DL (32-36); Mean Corpuscular Volume 92.8 FL (87-102); Mean Platelet Volume 11.2 FL (9.6-12.0); Monocytes % 6.8 % (1.7-12.7); Platelet Count 190 T/CUMM (130-400); Red Blood Count 4.04 MC/CUMM (3.8-5.5); Red Cell Distribution Width 15.5 % (9.3-17.3); White Blood Count 4.9 T/CUMM (4-12)
[2020-10-16 18:31] LABS: Albumin 3.7 G/DL (3.4-5.0); Bilirubin,Total 0.6 MG/DL (0.2-1.0); Calcium 9.8 MG/DL (8.5-10.1); Osmolality,Calculated 277.7 MOS/KG (273-304); Potassium 3.4 MMOL/L (3.5-5.1); Total Protein 7.6 G/DL (5.0-7.5)
[2020-10-16 18:43] LABS: Bacteria,Urine Occasional /HPF (Few); Bilirubin,Urine Negative (Negative); Blood, Urine Small mg/dL (Negative); Glucose,Urine (UA) Negative (Negative); Hyaline Casts,Urine 4 /LPF (0-3); Ketones,Urine Negative (Negative); Mucus,Urine Occasional /LPF (Occasional); Nitrite,Urine Negative (Negative); Protein,Urine 100 MG/DL; RBC,Urine 5 /HPF (0-4); Squamous Epithelial Cell,Urine Occasional /HPF (0-10); Urine Appearance Slightly Hazy (Clear); Urine Color Yellow (Yellow); Urine Specific Gravity 1.006 (1.001-1.035); Urine Urobilinogen < 2.0 EU/DL (0.2-1.0); WBC,Urine 168 /HPF (0-6)
[2020-10-16] MEDS ORDERED: cefTRIAXone 1,000 MG in SODIUM CHLORIDE 0.9% 100 ML IV STA (18:44)
[2020-10-16] MEDS ORDERED: hydrALAZINE 20 MG/1 ML VIAL IV STA (20:07)
[2020-10-16] MEDS ORDERED: DEXTROSE 50% 25 GM/50 ML VIAL IV STA (20:08)
[2020-10-16] MEDS ORDERED: DEXTROSE 50% 25 GM/50 ML SYRINGE IV ONE (20:09)
[2020-10-16] MEDS ORDERED: DEXTROSE 50% 25 GM/50 ML VIAL IV PRN (20:57)
[2020-10-16] MEDS ORDERED: hydrALAZINE 20 MG/1 ML VIAL IV PRN (20:57)
[2020-10-16] MEDS ORDERED: ONDANSETRON 4 MG/2 ML VIAL IV PRN (20:57)
[2020-10-16] MEDS ORDERED: ACETAMINOPHEN 325 MG TABLET PO PRN (20:57)
[2020-10-16] MEDS ORDERED: GLUCAGON 1 MG VIAL IM PRN (20:57)
[2020-10-16] MEDS ORDERED: BISACODYL 5 MG TABLET PO PRN (21:51)
[2020-10-17] MEDS: cloNIDine 0.1 MG TABLET PO SCH ×4 (01:02→21:56)
[2020-10-17] MEDS: hydrALAZINE 25 MG TABLET PO SCH ×3 (01:02→21:57)
[2020-10-17] MEDS: DONEPEZIL 5 MG TABLET PO SCH ×2 (01:02→21:56)
[2020-10-17] MEDS: calcitrioL 0.25 MCG CAPSULE PO SCH ×2 (01:03→21:56)
[2020-10-17] MEDS: MEMANTINE 10 MG TABLET PO SCH ×2 (01:03→21:57)
[2020-10-17 07:04] LABS: Basophils % 0.5 % (0.0-0.8); Eosinophils # 0.2 10*3/uL (0.0-0.87); Eosinophils % 3.3 % (0.00-10.9); Hematocrit 32.8 VOL% (35.7-47.0); Hemoglobin 10.9 GM/DL (12.0-16.0); Immature Granulocytes % 0.5 %; Immature Granulocytes Absolute 0.03 #; Lymphocytes # 1.7 10*3/uL (1.4-4.0); Lymphocytes % 26.7 % (21.3-54.2); Mean Corpuscular HGB Conc 33.2 GM/DL (32-36); Mean Corpuscular Volume 92.4 FL (87-102); Mean Platelet Volume 11.7 FL (9.6-12.0); Monocytes % 8.4 % (1.7-12.7); Neutrophils % 60.6 % (38.7-73.9); Platelet Count 194 T/CUMM (130-400); Red Blood Count 3.55 MC/CUMM (3.8-5.5); Red Cell Distribution Width 15.6 % (9.3-17.3); White Blood Count 6.3 T/CUMM (4-12)
[2020-10-17 07:51] LABS: Albumin 3.1 G/DL (3.4-5.0); Bilirubin,Total 1.3 MG/DL (0.2-1.0); Calcium 9.7 MG/DL (8.5-10.1); Osmolality,Calculated 286.3 MOS/KG (273-304); Potassium 3.9 MMOL/L (3.5-5.1); Total Protein 6.6 G/DL (5.0-7.5)
[2020-10-17] MEDS ORDERED: NUTRITIONAL SUPPLEMENT PO SCH (08:00)
[2020-10-17] MEDS ORDERED: [UNRECOGNIZED DRUG - OTHER] PO SCH (08:00)
[2020-10-17] MEDS: LOSARTAN 50 MG TABLET PO SCH (08:42)
[2020-10-17] MEDS: DOCUSATE SODIUM 100 MG CAPSULE PO SCH ×2 (08:42→21:57)
[2020-10-17] MEDS: ASPIRIN EC 81 MG TABLET PO SCH (08:42)
[2020-10-17] MEDS: FAMOTIDINE 20 MG TABLET PO SCH (08:42)
[2020-10-17] MEDS: FOLIC ACID 1 MG TABLET PO SCH (08:42)
[2020-10-17] MEDS: SEVELAMER CARBONATE 800 MG TABLET PO SCH ×3 (08:42→17:32)
[2020-10-17] MEDS: PANTOPRAZOLE 40 MG TABLET PO SCH (08:42)
[2020-10-17] MEDS ORDERED: [UNRECOGNIZED DRUG - OTHER] PO SCH (09:00)
[2020-10-17] MEDS ORDERED: AMINO AC PROTEIN HYDR WHEY PRO PO SCH (09:00)
[2020-10-17] MEDS ORDERED: [UNRECOGNIZED DRUG - OTHER] PO SCH (09:00)
[2020-10-17] MEDS ORDERED: BILLION CELL PO SCH (09:00)
[2020-10-17] MEDS ORDERED: PANTOPRAZOLE 40 MG TABLET PO SCH (09:00)
[2020-10-18] MEDS ORDERED: HEPARIN 10,000 UNIT/10 ML VIAL IV SCH (09:30)
[2020-10-18 09:40] LABS: Calcium 9.4 MG/DL (8.5-10.1); Potassium 3.8 MMOL/L (3.5-5.1)
[2020-10-18] MEDS: FOLIC ACID 1 MG TABLET PO SCH (09:46)
[2020-10-18] MEDS: SEVELAMER CARBONATE 800 MG TABLET PO SCH ×3 (09:46→16:40)
[2020-10-18] MEDS: FAMOTIDINE 20 MG TABLET PO SCH (09:46)
[2020-10-18] MEDS: cloNIDine 0.1 MG TABLET PO SCH ×3 (09:46→21:33)
[2020-10-18] MEDS: SERTRALINE 50 MG TABLET PO SCH (09:46)
[2020-10-18] MEDS: DOCUSATE SODIUM 100 MG CAPSULE PO SCH ×2 (09:47→21:33)
[2020-10-18] MEDS: LOSARTAN 50 MG TABLET PO SCH (09:47)
[2020-10-18] MEDS: PANTOPRAZOLE 40 MG TABLET PO SCH (09:47)
[2020-10-18] MEDS: ASPIRIN EC 81 MG TABLET PO SCH (09:47)
[2020-10-18] MEDS ORDERED: QUEtiapine 25 MG TABLET PO SCH (21:00)
[2020-10-18] MEDS ORDERED: ROSUVASTATIN 10 MG TABLET PO SCH (21:00)
[2020-10-18] MEDS: MEMANTINE 10 MG TABLET PO SCH (21:33)
[2020-10-19] MEDS: ASPIRIN EC 81 MG TABLET PO SCH (09:22)
[2020-10-19] MEDS: DOCUSATE SODIUM 100 MG CAPSULE PO SCH (09:22)
[2020-10-19] MEDS: cloNIDine 0.1 MG TABLET PO SCH (10:15)
[2020-10-19] MEDS: PANTOPRAZOLE 40 MG TABLET PO SCH (10:15)
[2020-10-19] MEDS: SEVELAMER CARBONATE 800 MG TABLET PO SCH ×2 (10:15→11:51)
[2020-10-19] MEDS: LOSARTAN 50 MG TABLET PO SCH (10:15)
[2020-10-19] MEDS: SERTRALINE 50 MG TABLET PO SCH (10:15)
[2020-10-19] MEDS: FOLIC ACID 1 MG TABLET PO SCH (10:15)
[2020-10-19] MEDS: FAMOTIDINE 20 MG TABLET PO SCH (10:15)
[2020-10-19 11:58] VITALS: BP 140/51
== END 2020-10-19 13:10 ==
LOC: EDUNIT# → EDBD → N.EDINP 17:13 → N.ED 17:13 → N.3E 21:16
PROVIDERS: ADMIT Internal Medicine; ATTEND Internal Medicine

== ENCOUNTER 2022-01-02 12:12 | Inpatient (IN) ==
[2022-01-02 13:55] LABS: Basophils % 0.2 % (0.0-0.8); Eosinophils % 0.2 % (0.00-10.9); Hematocrit 33.4 VOL% (35.7-47.0); Hemoglobin 11.1 GM/DL (12.0-16.0); Immature Granulocytes % 0.6 %; Immature Granulocytes Absolute 0.06 #; Lymphocytes # 0.7 10*3/uL (1.4-4.0); Lymphocytes % 6.9 % (21.3-54.2); Mean Corpuscular HGB Conc 33.2 GM/DL (32-36); Mean Platelet Volume 11.7 FL (9.6-12.0); Monocytes # 0.6 10*3/uL (0.11-0.8); Neutrophils % 86.1 % (38.7-73.9); Platelet Count 205 T/CUMM (130-400); Red Blood Count 3.59 MC/CUMM (3.8-5.5); Red Cell Distribution Width 15.6 % (9.3-17.3); White Blood Count 9.9 T/CUMM (4-12)
[2022-01-02 14:27] LABS: Albumin 3.1 G/DL (3.4-5.0); Bilirubin,Total 0.4 MG/DL (0.20-1.00); Calcium 9.9 MG/DL (8.5-10.1); Potassium 4.5 MMOL/L (3.5-5.1); Total Protein 7.4 G/DL (6.4-8.2)
[2022-01-02 15:53] LABS: Bilirubin,Urine Negative (Negative); Blood, Urine Small mg/dL (Negative); Glucose,Urine (UA) 250 mg/dL (Negative); Ketones,Urine Negative (Negative); Nitrite,Urine Negative (Negative); Protein,Urine >=300 mg/dL (Negative); RBC,Urine 1 /HPF (0-4); Squamous Epithelial Cell,Urine Occasional /HPF (0-10); Urine Appearance Clear (Clear); Urine Color Yellow (Yellow); Urine Urobilinogen 0.2 eU/dL (<2.0)
[2022-01-02] MEDS ORDERED: DEXTROSE 10% 250 ML BAG IV PRN (19:15)
[2022-01-02] MEDS ORDERED: ONDANSETRON 4 MG/2 ML VIAL IV PRN (19:15)
[2022-01-02] MEDS ORDERED: VANCOMYCIN INJ 1,000 MG in SODIUM CHLORIDE 0.9% 250 ML IV STA (19:15)
[2022-01-02] MEDS ORDERED: GLUCAGON 1 MG VIAL IM PRN (19:15)
[2022-01-02] MEDS ORDERED: ACETAMINOPHEN 325 MG TABLET PO PRN (19:15)
[2022-01-02] MEDS ORDERED: VANCOMYCIN INJ 500 MG in SODIUM CHLORIDE 0.9% 100 ML IV PRN (19:29)
[2022-01-02] MEDS: INSULIN REGULAR 100 UNIT/ML SUBCUT SCH ×2 (21:10→23:42)
[2022-01-02] MEDS: DOCUSATE SODIUM 100 MG CAPSULE PO SCH (21:15)
[2022-01-03] MEDS: INSULIN REGULAR 100 UNIT/ML SUBCUT SCH ×4 (07:08→20:39)
[2022-01-03] MEDS ORDERED: cloNIDine 0.1 MG TABLET PO PRN ×2 (09:11)
[2022-01-03] MEDS ORDERED: ONDANSETRON 4 MG/2 ML VIAL IM PRN (09:11)
[2022-01-03] MEDS ORDERED: BISACODYL 5 MG TABLET PO PRN (09:15)
[2022-01-03] MEDS ORDERED: SEVELAMER CARBONATE 800 MG TABLET PO SCH (09:30)
[2022-01-03] MEDS: PANTOPRAZOLE 40 MG TABLET PO SCH (10:29)
[2022-01-03] MEDS: DOCUSATE SODIUM 100 MG CAPSULE PO SCH ×2 (10:30→20:38)
[2022-01-03] MEDS: SEVELAMER CARBONATE 800 MG TABLET PO SCH ×2 (13:04→17:07)
[2022-01-03] MEDS ORDERED: SEVELAMER HCL 800 MG PO SCH (17:00)
[2022-01-03] MEDS ORDERED: [UNRECOGNIZED DRUG - OTHER] PO SCH (17:00)
[2022-01-03] MEDS ORDERED: NUT TX IMP RENAL FXN LAC REDUC PO SCH (17:00)
[2022-01-03] MEDS: QUEtiapine 25 MG TABLET PO SCH (20:37)
[2022-01-03] MEDS: CRAN VITC MANNOSE FOS BROMELN PO SCH (20:37)
[2022-01-03] MEDS: MIRTAZAPINE 15 MG TABLET PO SCH (20:38)
[2022-01-03] MEDS: MEMANTINE 10 MG TABLET PO SCH (20:38)
[2022-01-03] MEDS: DONEPEZIL 10 MG TABLET PO SCH (20:38)
[2022-01-03] MEDS: FOLIC ACID 1 MG TABLET PO SCH (20:38)
[2022-01-03] MEDS: ROSUVASTATIN 10 MG TABLET PO SCH (20:38)
[2022-01-03] MEDS: carvediloL 6.25 MG TABLET PO SCH (20:38)
[2022-01-03] MEDS ORDERED: DOCUSATE SODIUM 100 MG CAPSULE PO SCH (21:00)
[2022-01-04] MEDS ORDERED: PANTOPRAZOLE 40 MG TABLET PO SCH (06:30)
[2022-01-04] MEDS: INSULIN REGULAR 100 UNIT/ML SUBCUT SCH ×4 (08:09→22:03)
[2022-01-04] MEDS: carvediloL 6.25 MG TABLET PO SCH ×2 (10:09→22:01)
[2022-01-04] MEDS: DOCUSATE SODIUM 100 MG CAPSULE PO SCH ×2 (10:09→22:01)
[2022-01-04] MEDS: ASPIRIN EC 81 MG TABLET PO SCH (10:09)
[2022-01-04] MEDS: PANTOPRAZOLE 40 MG TABLET PO SCH (10:09)
[2022-01-04] MEDS: SERTRALINE 50 MG TABLET PO SCH (10:09)
[2022-01-04] MEDS: SEVELAMER CARBONATE 800 MG TABLET PO SCH ×3 (10:09→18:24)
[2022-01-04] MEDS: LOSARTAN 50 MG TABLET PO SCH (10:09)
[2022-01-04] MEDS: FERROUS SULFATE 325 MG TABLET PO SCH (10:09)
[2022-01-04] MEDS: CRAN VITC MANNOSE FOS BROMELN PO SCH ×2 (10:23→22:02)
[2022-01-04] MEDS ORDERED: VANCOMYCIN INJ 500 MG in SODIUM CHLORIDE 0.9% 100 ML IV ONE (17:00)
[2022-01-04] MEDS: MIRTAZAPINE 15 MG TABLET PO SCH (22:01)
[2022-01-04] MEDS: FOLIC ACID 1 MG TABLET PO SCH (22:01)
[2022-01-04] MEDS: ROSUVASTATIN 10 MG TABLET PO SCH (22:01)
[2022-01-04] MEDS: DONEPEZIL 10 MG TABLET PO SCH (22:01)
[2022-01-04] MEDS: QUEtiapine 25 MG TABLET PO SCH (22:02)
[2022-01-04] MEDS: MEMANTINE 10 MG TABLET PO SCH (22:02)
[2022-01-05] MEDS: SEVELAMER CARBONATE 800 MG TABLET PO SCH ×3 (09:08→17:06)
[2022-01-05] MEDS: SERTRALINE 50 MG TABLET PO SCH (09:08)
[2022-01-05] MEDS: DOCUSATE SODIUM 100 MG CAPSULE PO SCH ×2 (09:08→21:55)
[2022-01-05] MEDS: carvediloL 6.25 MG TABLET PO SCH ×2 (09:08→21:55)
[2022-01-05] MEDS: PANTOPRAZOLE 40 MG TABLET PO SCH (09:08)
[2022-01-05] MEDS: ASPIRIN EC 81 MG TABLET PO SCH (09:08)
[2022-01-05] MEDS: LOSARTAN 50 MG TABLET PO SCH (09:08)
[2022-01-05] MEDS: CRAN VITC MANNOSE FOS BROMELN PO SCH ×2 (09:12→21:55)
[2022-01-05] MEDS: INSULIN REGULAR 100 UNIT/ML SUBCUT SCH ×4 (09:12→21:55)
[2022-01-05] MEDS ORDERED: HEPARIN 10,000 UNIT/10 ML VIAL IV SCH (10:15)
[2022-01-05] MEDS ORDERED: ZINC OXIDE PASTE 113 GM TUBE TOP PRN (14:46)
[2022-01-05] MEDS ORDERED: VANCOMYCIN INJ 500 MG in SODIUM CHLORIDE 0.9% 100 ML IV ONE (17:00)
[2022-01-05] MEDS ORDERED: VANCOMYCIN INJ 500 MG in SODIUM CHLORIDE 0.9% 100 ML IV PRN (17:00)
[2022-01-05] MEDS: DONEPEZIL 10 MG TABLET PO SCH (21:55)
[2022-01-05] MEDS: FOLIC ACID 1 MG TABLET PO SCH (21:55)
[2022-01-05] MEDS: ROSUVASTATIN 10 MG TABLET PO SCH (21:55)
[2022-01-05] MEDS: QUEtiapine 25 MG TABLET PO SCH (21:55)
[2022-01-05] MEDS: MIRTAZAPINE 15 MG TABLET PO SCH (21:55)
[2022-01-05] MEDS: MEMANTINE 10 MG TABLET PO SCH (21:55)
[2022-01-06] MEDS: ASPIRIN EC 81 MG TABLET PO SCH (08:49)
[2022-01-06] MEDS: SEVELAMER CARBONATE 800 MG TABLET PO SCH ×3 (08:49→17:34)
[2022-01-06] MEDS: LOSARTAN 50 MG TABLET PO SCH (08:49)
[2022-01-06] MEDS: FERROUS SULFATE 325 MG TABLET PO SCH (08:49)
[2022-01-06] MEDS: CETIRIZINE 10 MG TABLET PO SCH (08:49)
[2022-01-06] MEDS: carvediloL 6.25 MG TABLET PO SCH ×2 (08:49→21:35)
[2022-01-06] MEDS: INSULIN REGULAR 100 UNIT/ML SUBCUT SCH ×4 (08:49→21:33)
[2022-01-06] MEDS: SERTRALINE 50 MG TABLET PO SCH (08:49)
[2022-01-06] MEDS: DOCUSATE SODIUM 100 MG CAPSULE PO SCH ×2 (08:50→21:35)
[2022-01-06] MEDS: PANTOPRAZOLE 40 MG TABLET PO SCH (08:50)
[2022-01-06] MEDS: CRAN VITC MANNOSE FOS BROMELN PO SCH (08:52)
[2022-01-06 13:45] LABS: Basophils # 0.1 10*3/uL (0.0-0.2); Basophils % 0.5 % (0.0-0.8); Eosinophils # 0.1 10*3/uL (0.0-0.87); Eosinophils % 0.5 % (0.00-10.9); Hematocrit 31.2 VOL% (35.7-47.0); Hemoglobin 10.4 GM/DL (12.0-16.0); Immature Granulocytes % 2.6 %; Immature Granulocytes Absolute 0.34 #; Lymphocytes # 1.9 10*3/uL (1.4-4.0); Lymphocytes % 14.4 % (21.3-54.2); Mean Corpuscular HGB Conc 33.3 GM/DL (32-36); Mean Corpuscular Volume 92.6 FL (87-102); Mean Platelet Volume 10.9 FL (9.6-12.0); Monocytes # 0.8 10*3/uL (0.11-0.8); Monocytes % 6.3 % (1.7-12.7); Neutrophils % 75.7 % (38.7-73.9); Platelet Count 291 T/CUMM (130-400); Red Blood Count 3.37 MC/CUMM (3.8-5.5); Red Cell Distribution Width 15.3 % (9.3-17.3); White Blood Count 13.2 T/CUMM (4-12)
[2022-01-06 14:09] LABS: Alanine Aminotransferase < 9 U/L (13-56); Albumin 2.5 G/DL (3.4-5.0); Alkaline Phosphatase 73 U/L (45-117); Aspartate Amino Transferase 12 U/L (0-37); Bilirubin,Total < 0.39 MG/DL (0.20-1.00); Blood Urea Nitrogen 55 MG/DL (7-18); Calcium 10.3 MG/DL (8.5-10.1); Carbon Dioxide 26 MMOL/L (21-32); Chloride 106 MMOL/L (98-107); Glucose 89 MG/DL (74-106); Osmolality,Calculated 292.4 MOS/KG (273-304); Potassium 4.7 MMOL/L (3.5-5.1); Sodium 140 MMOL/L (136-145); Total Protein 6.7 G/DL (6.4-8.2)
[2022-01-06] MEDS ORDERED: cloNIDine 0.1 MG TABLET PO ONE (17:01)
[2022-01-06] MEDS: methylPREDNISolone SOD SUC 40 MG/1 ML VIAL IV SCH (17:34)
[2022-01-06] MEDS: FOLIC ACID 1 MG TABLET PO SCH (21:34)
[2022-01-06] MEDS: ROSUVASTATIN 10 MG TABLET PO SCH (21:34)
[2022-01-06] MEDS: MEMANTINE 10 MG TABLET PO SCH (21:34)
[2022-01-06] MEDS: QUEtiapine 25 MG TABLET PO SCH (21:35)
[2022-01-06] MEDS: MIRTAZAPINE 15 MG TABLET PO SCH (21:35)
[2022-01-06] MEDS: DONEPEZIL 10 MG TABLET PO SCH (21:35)
[2022-01-06] MEDS ORDERED: cloNIDine 0.1 MG TABLET PO SCH (22:00)
[2022-01-07] MEDS: CRAN VITC MANNOSE FOS BROMELN PO SCH ×2 (00:25→09:02)
[2022-01-07] MEDS: methylPREDNISolone SOD SUC 40 MG/1 ML VIAL IV SCH ×2 (05:11→17:12)
[2022-01-07] MEDS: carvediloL 6.25 MG TABLET PO SCH ×2 (08:42→20:38)
[2022-01-07] MEDS: SEVELAMER CARBONATE 800 MG TABLET PO SCH ×3 (08:42→17:13)
[2022-01-07] MEDS: cloNIDine 0.1 MG TABLET PO SCH ×2 (08:42→20:38)
[2022-01-07] MEDS: INSULIN REGULAR 100 UNIT/ML SUBCUT SCH ×4 (08:42→20:37)
[2022-01-07] MEDS: ASPIRIN EC 81 MG TABLET PO SCH (08:43)
[2022-01-07] MEDS: DOCUSATE SODIUM 100 MG CAPSULE PO SCH ×2 (08:43→20:51)
[2022-01-07] MEDS: PANTOPRAZOLE 40 MG TABLET PO SCH (08:43)
[2022-01-07] MEDS: SERTRALINE 50 MG TABLET PO SCH (08:43)
[2022-01-07] MEDS: CETIRIZINE 10 MG TABLET PO SCH (08:43)
[2022-01-07] MEDS: FOLIC ACID 1 MG TABLET PO SCH (20:38)
[2022-01-07] MEDS: ROSUVASTATIN 10 MG TABLET PO SCH (20:38)
[2022-01-07] MEDS: MIRTAZAPINE 15 MG TABLET PO SCH (20:39)
[2022-01-07] MEDS: QUEtiapine 25 MG TABLET PO SCH (20:39)
[2022-01-07] MEDS: DONEPEZIL 10 MG TABLET PO SCH (20:39)
[2022-01-07] MEDS: MEMANTINE 10 MG TABLET PO SCH (20:39)
[2022-01-08] MEDS: CRAN VITC MANNOSE FOS BROMELN PO SCH ×2 (01:35→10:53)
[2022-01-08] MEDS: methylPREDNISolone SOD SUC 40 MG/1 ML VIAL IV SCH (05:52)
[2022-01-08 06:40] LABS: Basophils % 0.3 % (0.0-0.8); Eosinophils # 0.1 10*3/uL (0.0-0.87); Eosinophils % 0.4 % (0.00-10.9); Hematocrit 34.7 VOL% (35.7-47.0); Hemoglobin 11.2 GM/DL (12.0-16.0); Immature Granulocytes % 6.5 %; Immature Granulocytes Absolute 0.78 #; Lymphocytes # 2.1 10*3/uL (1.4-4.0); Lymphocytes % 17.6 % (21.3-54.2); Mean Corpuscular HGB Conc 32.3 GM/DL (32-36); Mean Corpuscular Volume 95.6 FL (87-102); Mean Platelet Volume 10.9 FL (9.6-12.0); Monocytes # 0.7 10*3/uL (0.11-0.8); Monocytes % 5.9 % (1.7-12.7); Neutrophils % 69.3 % (38.7-73.9); Platelet Count 279 T/CUMM (130-400); Red Blood Count 3.63 MC/CUMM (3.8-5.5); Red Cell Distribution Width 15.1 % (9.3-17.3); White Blood Count 11.9 T/CUMM (4-12)
[2022-01-08 06:58] LABS: Osmolality,Calculated 281.2 MOS/KG (273-304); Potassium 4.8 MMOL/L (3.5-5.1)
[2022-01-08 07:07] LABS: Lymphocytes 19 % (20-55); Total Cells Counted 100
[2022-01-08 07:08] LABS: Microcytosis 1+
[2022-01-08] MEDS: PANTOPRAZOLE 40 MG TABLET PO SCH (09:10)
[2022-01-08] MEDS: SEVELAMER CARBONATE 800 MG TABLET PO SCH ×2 (09:10→12:05)
[2022-01-08] MEDS: DOCUSATE SODIUM 100 MG CAPSULE PO SCH (09:10)
[2022-01-08] MEDS: INSULIN REGULAR 100 UNIT/ML SUBCUT SCH ×2 (09:10→12:05)
[2022-01-08] MEDS: SERTRALINE 50 MG TABLET PO SCH (09:10)
[2022-01-08] MEDS: cloNIDine 0.1 MG TABLET PO SCH (09:11)
[2022-01-08] MEDS: ASPIRIN EC 81 MG TABLET PO SCH (09:11)
[2022-01-08] MEDS: carvediloL 6.25 MG TABLET PO SCH (09:11)
[2022-01-08] MEDS: CETIRIZINE 10 MG TABLET PO SCH (09:11)
[2022-01-08] MEDS: FERROUS SULFATE 325 MG TABLET PO SCH (09:11)
[2022-01-08 12:20] VITALS: BP 129/58
== END 2022-01-08 13:10 | DRG 638 ==
LOC: EDUNIT# → EDBD → N.ED 12:12 → N.EDINP 17:16 → N.TELES 01-03 05:14
PROVIDERS: ADMIT Internal Medicine; ATTEND Internal Medicine

== ENCOUNTER 2022-03-19 08:16 | Inpatient (IN) ==
[2022-03-19 09:48] LABS: Basophils % 0.1 % (0.0-0.8); Eosinophils % 0.1 % (0.00-10.9); Hematocrit 39.1 VOL% (35.7-47.0); Immature Granulocytes % 0.8 %; Immature Granulocytes Absolute 0.12 #; Lymphocytes # 1.2 10*3/uL (1.4-4.0); Lymphocytes % 7.8 % (21.3-54.2); Mean Corpuscular HGB Conc 33.2 GM/DL (32-36); Mean Corpuscular Volume 90.3 FL (87-102); Mean Platelet Volume 12.6 FL (9.6-12.0); Monocytes # 0.9 10*3/uL (0.11-0.8); Monocytes % 5.4 % (1.7-12.7); Neutrophils % 85.8 % (38.7-73.9); Platelet Count 231 T/CUMM (130-400); Red Blood Count 4.33 MC/CUMM (3.8-5.5); Red Cell Distribution Width 16.5 % (9.3-17.3); White Blood Count 15.7 T/CUMM (4-12)
[2022-03-19 10:08] LABS: Alanine Aminotransferase < 9 U/L (13-56); Albumin 2.7 G/DL (3.4-5.0); Alkaline Phosphatase 77 U/L (45-117); Aspartate Amino Transferase 11 U/L (0-37); Blood Urea Nitrogen 66 MG/DL (7-18); Calcium 9.2 MG/DL (8.5-10.1); Carbon Dioxide 25 MMOL/L (21-32); Chloride 107 MMOL/L (98-107); Glucose 181 MG/DL (74-106); Osmolality,Calculated 311.7 MOS/KG (273-304); Potassium 3.4 MMOL/L (3.5-5.1); Sodium 145 MMOL/L (136-145); Total Protein 6.5 G/DL (6.4-8.2)
[2022-03-19] MEDS ORDERED: ONDANSETRON 4 MG/2 ML VIAL IV PRN (10:38)
[2022-03-19] MEDS ORDERED: ACETAMINOPHEN 325 MG TABLET PO PRN (10:38)
[2022-03-19] MEDS ORDERED: PIPERACILLIN/TAZOBACTAM 3,375 MG in SODIUM CHLORIDE 0.9% 100 ML IV STA (10:38)
[2022-03-19] MEDS: PIPERACILLIN/TAZOBACTAM 3,375 MG in SODIUM CHLORIDE 0.9% 100 ML IV SCH ×2 (11:00→22:09)
[2022-03-19] MEDS ORDERED: ZINC OXIDE PASTE 113 GM TUBE TOP PRN ×2 (15:20→21:41)
[2022-03-19] MEDS ORDERED: cloNIDine 0.1 MG TABLET PO PRN (21:41)
[2022-03-19] MEDS ORDERED: MAGNESIUM HYDROXIDE SUSP 30 ML UDCUP PO PRN (21:41)
[2022-03-19] MEDS ORDERED: GLUCAGON 1 MG VIAL IM PRN (21:46)
[2022-03-19] MEDS ORDERED: DEXTROSE 10% 250 ML BAG IV PRN (21:49)
[2022-03-19] MEDS: DOCUSATE SODIUM 100 MG CAPSULE PO SCH (22:09)
[2022-03-19] MEDS ORDERED: BISACODYL 5 MG TABLET PO PRN (22:14)
[2022-03-20] MEDS: methylPREDNISolone SOD SUC 40 MG/1 ML VIAL IV SCH ×3 (05:36→21:45)
[2022-03-20 05:58] LABS: Basophils % 0.3 % (0.0-0.8); Eosinophils % 0.4 % (0.00-10.9); Hematocrit 38.2 VOL% (35.7-47.0); Hemoglobin 12.3 GM/DL (12.0-16.0); Immature Granulocytes % 0.6 %; Immature Granulocytes Absolute 0.07 #; Lymphocytes # 1.3 10*3/uL (1.4-4.0); Lymphocytes % 11.2 % (21.3-54.2); Mean Corpuscular HGB Conc 32.2 GM/DL (32-36); Mean Corpuscular Volume 91.6 FL (87-102); Mean Platelet Volume 12.6 FL (9.6-12.0); Monocytes # 0.7 10*3/uL (0.11-0.8); Monocytes % 6.3 % (1.7-12.7); Neutrophils % 81.2 % (38.7-73.9); Platelet Count 234 T/CUMM (130-400); Red Blood Count 4.17 MC/CUMM (3.8-5.5); Red Cell Distribution Width 16.7 % (9.3-17.3); White Blood Count 11.2 T/CUMM (4-12)
[2022-03-20 06:43] LABS: Albumin 2.6 G/DL (3.4-5.0); Bilirubin,Total 0.4 MG/DL (0.20-1.00); Calcium 9.2 MG/DL (8.5-10.1); Osmolality,Calculated 307.4 MOS/KG (273-304); Potassium 3.5 MMOL/L (3.5-5.1); Total Protein 6.4 G/DL (6.4-8.2)
[2022-03-20] MEDS: INSULIN REGULAR 100 UNIT/ML SUBCUT SCH ×4 (09:58→21:49)
[2022-03-20] MEDS: SEVELAMER CARBONATE 800 MG TABLET PO SCH ×3 (09:59→16:37)
[2022-03-20] MEDS: PANTOPRAZOLE 40 MG TABLET PO SCH (09:59)
[2022-03-20] MEDS: CETIRIZINE 10 MG TABLET PO SCH (09:59)
[2022-03-20] MEDS: ASPIRIN EC 81 MG TABLET PO SCH (09:59)
[2022-03-20] MEDS: DOCUSATE SODIUM 100 MG CAPSULE PO SCH ×4 (10:00→21:45)
[2022-03-20] MEDS: carvediloL 6.25 MG TABLET PO SCH ×2 (10:00→16:37)
[2022-03-20] MEDS: SERTRALINE 50 MG TABLET PO SCH (10:00)
[2022-03-20] MEDS: NUT TX IMP RENAL FXN LAC REDUC PO SCH ×2 (10:02→21:57)
[2022-03-20] MEDS: [UNRECOGNIZED DRUG - OTHER] PO SCH ×2 (10:02→21:57)
[2022-03-20] MEDS: PIPERACILLIN/TAZOBACTAM 3,375 MG in SODIUM CHLORIDE 0.9% 100 ML IV SCH ×2 (10:17→23:36)
[2022-03-20] MEDS ORDERED: HEPARIN 10,000 UNIT/10 ML VIAL IV PRN (14:00)
[2022-03-20] MEDS ORDERED: NITROGLYCERIN SL 0.4 MG TABLET SL PRN (15:39)
[2022-03-20] MEDS ORDERED: ASPIRIN CHEW 81 MG TABLET PO ONE (15:39)
[2022-03-20] MEDS ORDERED: ALUM/MAG/SIMETH/LIDO VISC 1:1 30 ML BOTTLE PO ONE (15:42)
[2022-03-20] MEDS: DONEPEZIL 10 MG TABLET PO SCH (21:45)
[2022-03-20] MEDS: MEMANTINE 10 MG TABLET PO SCH (21:45)
[2022-03-20] MEDS: QUEtiapine 25 MG TABLET PO SCH (21:48)
[2022-03-20] MEDS: MIRTAZAPINE 30 MG TABLET PO SCH (23:36)
[2022-03-20] MEDS: ROSUVASTATIN 10 MG TABLET PO SCH (23:37)
[2022-03-21] MEDS ORDERED: SODIUM CHLORIDE 0.9% 1,000 ML IV SCH (03:30)
[2022-03-21 05:30] LABS: Basophils % 0.2 % (0.0-0.8); Hematocrit 34.1 VOL% (35.7-47.0); Hemoglobin 11.2 GM/DL (12.0-16.0); Immature Granulocytes % 1.5 %; Immature Granulocytes Absolute 0.13 #; Lymphocytes # 0.7 10*3/uL (1.4-4.0); Lymphocytes % 8.1 % (21.3-54.2); Mean Corpuscular HGB Conc 32.8 GM/DL (32-36); Mean Corpuscular Volume 90.9 FL (87-102); Monocytes # 0.3 10*3/uL (0.11-0.8); Monocytes % 3.3 % (1.7-12.7); Neutrophils % 86.9 % (38.7-73.9); Platelet Count 211 T/CUMM (130-400); Red Blood Count 3.75 MC/CUMM (3.8-5.5); Red Cell Distribution Width 15.9 % (9.3-17.3); White Blood Count 8.9 T/CUMM (4-12)
[2022-03-21] MEDS: methylPREDNISolone SOD SUC 40 MG/1 ML VIAL IV SCH ×3 (05:50→22:05)
[2022-03-21] MEDS ORDERED: HYDROmorphone 1 MG/1 ML SYRINGE IV PRN (07:51)
[2022-03-21] MEDS ORDERED: PROMETHAZINE INJ 25 MG in SODIUM CHLORIDE 0.9% 50 ML IV PRN (07:51)
[2022-03-21] MEDS ORDERED: MEPERIDINE 25 MG/1 ML VIAL IV PRN (07:51)
[2022-03-21] MEDS ORDERED: diphenhydrAMINE 50 MG/1 ML VIAL IV PRN (07:51)
[2022-03-21] MEDS ORDERED: ONDANSETRON 4 MG/2 ML VIAL IV PRN (07:51)
[2022-03-21] MEDS ORDERED: SEVOFLURANE 1 UNIT/15 MINUTE INH ONE ×2 (08:04→09:26)
[2022-03-21] MEDS ORDERED: propofoL 200 MG/20 ML VIAL IV ONE (08:04)
[2022-03-21] MEDS ORDERED: LIDOCAINE 2% 5 ML VIAL ONE (08:04)
[2022-03-21] MEDS ORDERED: fentaNYL 100 MCG/2 ML VIAL ONE (08:05)
[2022-03-21] MEDS: carvediloL 6.25 MG TABLET PO SCH ×2 (08:15→16:08)
[2022-03-21] MEDS: ASPIRIN EC 81 MG TABLET PO SCH (08:18)
[2022-03-21] MEDS: INSULIN REGULAR 100 UNIT/ML SUBCUT SCH ×4 (08:18→20:38)
[2022-03-21] MEDS: DOCUSATE SODIUM 100 MG CAPSULE PO SCH ×4 (08:18→20:25)
[2022-03-21] MEDS: SEVELAMER CARBONATE 800 MG TABLET PO SCH ×3 (08:18→16:15)
[2022-03-21] MEDS: NUT TX IMP RENAL FXN LAC REDUC PO SCH ×2 (08:19→20:26)
[2022-03-21] MEDS: SERTRALINE 50 MG TABLET PO SCH (08:19)
[2022-03-21] MEDS: PANTOPRAZOLE 40 MG TABLET PO SCH (08:19)
[2022-03-21] MEDS: [UNRECOGNIZED DRUG - OTHER] PO SCH ×2 (08:19→20:26)
[2022-03-21] MEDS: CETIRIZINE 10 MG TABLET PO SCH (08:19)
[2022-03-21] MEDS ORDERED: PHENYLEPHRINE 1 MG/10 ML SYRINGE IV ONE (09:28)
[2022-03-21] MEDS ORDERED: hydrALAZINE 20 MG/1 ML VIAL ONE (10:35)
[2022-03-21] MEDS ORDERED: hydrALAZINE 20 MG/1 ML VIAL IV ONE (10:44)
[2022-03-21] MEDS: PIPERACILLIN/TAZOBACTAM 3,375 MG in SODIUM CHLORIDE 0.9% 100 ML IV SCH ×2 (11:54→22:07)
[2022-03-21] MEDS: ROSUVASTATIN 10 MG TABLET PO SCH (20:24)
[2022-03-21] MEDS: DONEPEZIL 10 MG TABLET PO SCH (20:24)
[2022-03-21] MEDS: QUEtiapine 25 MG TABLET PO SCH (20:24)
[2022-03-21] MEDS: MEMANTINE 10 MG TABLET PO SCH (20:25)
[2022-03-21] MEDS: MIRTAZAPINE 30 MG TABLET PO SCH (20:25)
[2022-03-22 05:12] LABS: Basophils % 0.2 % (0.0-0.8); Eosinophils % 0.1 % (0.00-10.9); Hematocrit 36.8 VOL% (35.7-47.0); Hemoglobin 12.1 GM/DL (12.0-16.0); Immature Granulocytes % 1.9 %; Immature Granulocytes Absolute 0.18 #; Lymphocytes # 1.2 10*3/uL (1.4-4.0); Lymphocytes % 13.4 % (21.3-54.2); Mean Corpuscular HGB Conc 32.9 GM/DL (32-36); Mean Corpuscular Volume 90.9 FL (87-102); Mean Platelet Volume 12.2 FL (9.6-12.0); Monocytes # 0.7 10*3/uL (0.11-0.8); Monocytes % 7.4 % (1.7-12.7); Platelet Count 243 T/CUMM (130-400); Red Blood Count 4.05 MC/CUMM (3.8-5.5); Red Cell Distribution Width 16.3 % (9.3-17.3); White Blood Count 9.3 T/CUMM (4-12)
[2022-03-22 05:26] LABS: Calcium 9.2 MG/DL (8.5-10.1); Phosphorous 4.9 MG/DL (2.5-4.9); Potassium 3.7 MMOL/L (3.5-5.1)
[2022-03-22] MEDS: methylPREDNISolone SOD SUC 40 MG/1 ML VIAL IV SCH ×3 (05:43→22:11)
[2022-03-22] MEDS: SEVELAMER CARBONATE 800 MG TABLET PO SCH ×3 (08:11→17:24)
[2022-03-22] MEDS: ASPIRIN EC 81 MG TABLET PO SCH (08:11)
[2022-03-22] MEDS: PANTOPRAZOLE 40 MG TABLET PO SCH (08:11)
[2022-03-22] MEDS: DOCUSATE SODIUM 100 MG CAPSULE PO SCH ×4 (08:11→22:08)
[2022-03-22] MEDS: SERTRALINE 50 MG TABLET PO SCH (08:11)
[2022-03-22] MEDS: CETIRIZINE 10 MG TABLET PO SCH (08:11)
[2022-03-22] MEDS: NUT TX IMP RENAL FXN LAC REDUC PO SCH ×3 (08:12→23:51)
[2022-03-22] MEDS: INSULIN REGULAR 100 UNIT/ML SUBCUT SCH ×5 (08:12→22:12)
[2022-03-22] MEDS: [UNRECOGNIZED DRUG - OTHER] PO SCH ×3 (08:12→23:51)
[2022-03-22] MEDS: carvediloL 6.25 MG TABLET PO SCH ×2 (08:12→17:24)
[2022-03-22] MEDS: FERROUS SULFATE 325 MG TABLET PO SCH (13:14)
[2022-03-22] MEDS: PIPERACILLIN/TAZOBACTAM 3,375 MG in SODIUM CHLORIDE 0.9% 100 ML IV SCH ×2 (13:16→23:07)
[2022-03-22] MEDS: QUEtiapine 25 MG TABLET PO SCH (22:07)
[2022-03-22] MEDS: MIRTAZAPINE 30 MG TABLET PO SCH (22:08)
[2022-03-22] MEDS: ROSUVASTATIN 10 MG TABLET PO SCH (22:08)
[2022-03-22] MEDS: DONEPEZIL 10 MG TABLET PO SCH (22:08)
[2022-03-22] MEDS: MEMANTINE 10 MG TABLET PO SCH (22:08)
[2022-03-23] MEDS: methylPREDNISolone SOD SUC 40 MG/1 ML VIAL IV SCH ×3 (05:10→21:03)
[2022-03-23 05:22] LABS: Basophils % 0.3 % (0.0-0.8); Eosinophils # 0.1 10*3/uL (0.0-0.87); Hematocrit 32.9 VOL% (35.7-47.0); Hemoglobin 10.5 GM/DL (12.0-16.0); Immature Granulocytes % 2.8 %; Immature Granulocytes Absolute 0.22 #; Lymphocytes # 1.3 10*3/uL (1.4-4.0); Lymphocytes % 17.1 % (21.3-54.2); Mean Corpuscular HGB Conc 31.9 GM/DL (32-36); Mean Corpuscular Volume 92.4 FL (87-102); Mean Platelet Volume 12.1 FL (9.6-12.0); Monocytes % 12.4 % (1.7-12.7); Neutrophils % 66.4 % (38.7-73.9); Platelet Count 207 T/CUMM (130-400); Red Blood Count 3.56 MC/CUMM (3.8-5.5); Red Cell Distribution Width 16.2 % (9.3-17.3); White Blood Count 7.8 T/CUMM (4-12)
[2022-03-23 05:39] LABS: Calcium 8.7 MG/DL (8.5-10.1); Osmolality,Calculated 283.7 MOS/KG (273-304); Potassium 3.6 MMOL/L (3.5-5.1)
[2022-03-23] MEDS: SEVELAMER CARBONATE 800 MG TABLET PO SCH ×3 (08:42→16:17)
[2022-03-23] MEDS: PANTOPRAZOLE 40 MG TABLET PO SCH (08:42)
[2022-03-23] MEDS: DOCUSATE SODIUM 100 MG CAPSULE PO SCH ×4 (08:42→20:55)
[2022-03-23] MEDS: carvediloL 6.25 MG TABLET PO SCH ×2 (08:43→16:17)
[2022-03-23] MEDS: CETIRIZINE 10 MG TABLET PO SCH (08:43)
[2022-03-23] MEDS: SERTRALINE 50 MG TABLET PO SCH (08:43)
[2022-03-23] MEDS: INSULIN REGULAR 100 UNIT/ML SUBCUT SCH ×4 (08:44→21:18)
[2022-03-23] MEDS: NUT TX IMP RENAL FXN LAC REDUC PO SCH ×2 (08:44→21:00)
[2022-03-23] MEDS: [UNRECOGNIZED DRUG - OTHER] PO SCH ×2 (08:44→21:00)
[2022-03-23] MEDS: ASPIRIN EC 81 MG TABLET PO SCH (08:44)
[2022-03-23] MEDS: PIPERACILLIN/TAZOBACTAM 3,375 MG in SODIUM CHLORIDE 0.9% 100 ML IV SCH ×2 (11:34→22:47)
[2022-03-23] MEDS ORDERED: traMADol 50 MG TABLET PO PRN (18:44)
[2022-03-23] MEDS: ROSUVASTATIN 10 MG TABLET PO SCH (20:55)
[2022-03-23] MEDS: MEMANTINE 10 MG TABLET PO SCH (20:56)
[2022-03-23] MEDS: DONEPEZIL 10 MG TABLET PO SCH (20:56)
[2022-03-23] MEDS: MIRTAZAPINE 30 MG TABLET PO SCH (20:56)
[2022-03-23] MEDS: QUEtiapine 25 MG TABLET PO SCH (20:56)
[2022-03-24] MEDS: methylPREDNISolone SOD SUC 40 MG/1 ML VIAL IV SCH (05:00)
[2022-03-24 05:59] LABS: Basophils % 0.5 % (0.0-0.8); Eosinophils # 0.1 10*3/uL (0.0-0.87); Eosinophils % 1.6 % (0.00-10.9); Hematocrit 35.6 VOL% (35.7-47.0); Hemoglobin 11.2 GM/DL (12.0-16.0); Immature Granulocytes Absolute 0.43 #; Lymphocytes # 1.8 10*3/uL (1.4-4.0); Mean Corpuscular HGB Conc 31.5 GM/DL (32-36); Mean Platelet Volume 12.2 FL (9.6-12.0); Monocytes % 12.2 % (1.7-12.7); Neutrophils % 59.7 % (38.7-73.9); Platelet Count 263 T/CUMM (130-400); Red Blood Count 3.87 MC/CUMM (3.8-5.5); Red Cell Distribution Width 15.9 % (9.3-17.3); White Blood Count 8.5 T/CUMM (4-12)
[2022-03-24 06:15] LABS: Osmolality,Calculated 291.7 MOS/KG (273-304); Potassium 3.1 MMOL/L (3.5-5.1)
[2022-03-24] MEDS: INSULIN REGULAR 100 UNIT/ML SUBCUT SCH ×2 (09:15→12:35)
[2022-03-24] MEDS: ASPIRIN EC 81 MG TABLET PO SCH (12:33)
[2022-03-24] MEDS: carvediloL 6.25 MG TABLET PO SCH (12:33)
[2022-03-24] MEDS: SEVELAMER CARBONATE 800 MG TABLET PO SCH ×2 (12:33→13:14)
[2022-03-24] MEDS: DOCUSATE SODIUM 100 MG CAPSULE PO SCH ×2 (12:33→12:34)
[2022-03-24] MEDS: NUT TX IMP RENAL FXN LAC REDUC PO SCH (12:34)
[2022-03-24] MEDS: PANTOPRAZOLE 40 MG TABLET PO SCH (12:34)
[2022-03-24] MEDS: SERTRALINE 50 MG TABLET PO SCH (12:34)
[2022-03-24] MEDS: CETIRIZINE 10 MG TABLET PO SCH (12:34)
[2022-03-24] MEDS: [UNRECOGNIZED DRUG - OTHER] PO SCH (12:34)
[2022-03-24 12:43] VITALS: BP 149/73
[2022-03-24] MEDS: FERROUS SULFATE 325 MG TABLET PO SCH (13:12)
[2022-03-24] MEDS: PIPERACILLIN/TAZOBACTAM 3,375 MG in SODIUM CHLORIDE 0.9% 100 ML IV SCH (13:13)
[2022-03-24] MEDS ORDERED: POTASSIUM CHLORIDE 10 MEQ TABLET PO ONE (15:00)
[2022-03-24] MEDS ORDERED: EPOETIN ALFA-EPBX 4,000 UNIT/ML VIAL SUBCUT SCH (19:00)
== END 2022-03-24 16:08 | DRG 884 ==
LOC: EDUNIT# → EDBD → N.ED 08:16 → INTOOBSV 10:44 → N.3E 10:59
PROVIDERS: ADMIT Internal Medicine; ATTEND Internal Medicine

== ENCOUNTER 2022-03-29 12:34 | Inpatient (IN) ==
[2022-03-29 14:55] LABS: Basophils % 0.2 % (0.0-0.8); Eosinophils # 0.1 10*3/uL (0.0-0.87); Hematocrit 32.8 VOL% (35.7-47.0); Hemoglobin 10.5 GM/DL (12.0-16.0); Immature Granulocytes % 1.2 %; Immature Granulocytes Absolute 0.12 #; Lymphocytes # 1.3 10*3/uL (1.4-4.0); Lymphocytes % 13.1 % (21.3-54.2); Mean Corpuscular Volume 92.4 FL (87-102); Monocytes # 0.5 10*3/uL (0.11-0.8); Monocytes % 5.1 % (1.7-12.7); Neutrophils % 79.4 % (38.7-73.9); Platelet Count 239 T/CUMM (130-400); Red Blood Count 3.55 MC/CUMM (3.8-5.5); Red Cell Distribution Width 16.2 % (9.3-17.3)
[2022-03-29 15:12] LABS: Alanine Aminotransferase 10 U/L (13-56); Albumin 2.5 G/DL (3.4-5.0); Alkaline Phosphatase 71 U/L (45-117); Aspartate Amino Transferase 21 U/L (0-37); Bilirubin,Total < 0.39 MG/DL (0.20-1.00); Blood Urea Nitrogen 18 MG/DL (7-18); Calcium 9.4 MG/DL (8.5-10.1); Carbon Dioxide 28 MMOL/L (21-32); Chloride 104 MMOL/L (98-107); Glucose 127 MG/DL (74-106); Osmolality,Calculated 278.7 MOS/KG (273-304); Potassium 3.1 MMOL/L (3.5-5.1); Sodium 138 MMOL/L (136-145); Total Protein 5.5 G/DL (6.4-8.2)
[2022-03-29] MEDS ORDERED: ONDANSETRON 4 MG/2 ML VIAL IV PRN (21:37)
[2022-03-29] MEDS ORDERED: MORPHINE 2 MG/1 ML SYRINGE IV PRN (21:37)
[2022-03-29] MEDS ORDERED: GLUCAGON 1 MG VIAL IM PRN (21:37)
[2022-03-29] MEDS ORDERED: ACETAMINOPHEN 325 MG TABLET PO PRN (21:37)
[2022-03-29] MEDS ORDERED: DEXTROSE 10% 250 ML BAG IV PRN (21:45)
[2022-03-29] MEDS: INSULIN REGULAR 100 UNIT/ML SUBCUT SCH (22:33)
[2022-03-29] MEDS: DOCUSATE SODIUM 100 MG CAPSULE PO SCH (23:00)
[2022-03-30] MEDS: INSULIN REGULAR 100 UNIT/ML SUBCUT SCH ×4 (09:12→21:42)
[2022-03-30] MEDS: DOCUSATE SODIUM 100 MG CAPSULE PO SCH ×3 (10:09→21:41)
[2022-03-30] MEDS: PANTOPRAZOLE 40 MG TABLET PO SCH (10:09)
[2022-03-30] MEDS ORDERED: BISACODYL 5 MG TABLET PO PRN (14:28)
[2022-03-30] MEDS ORDERED: ACETAMINOPHEN 325 MG TABLET PO PRN (14:28)
[2022-03-30] MEDS ORDERED: cloNIDine 0.1 MG TABLET PO PRN (14:28)
[2022-03-30] MEDS ORDERED: ZINC OXIDE PASTE 113 GM TUBE TOP PRN (14:28)
[2022-03-30] MEDS ORDERED: MAGNESIUM HYDROXIDE SUSP 30 ML UDCUP PO PRN (14:28)
[2022-03-30] MEDS: carvediloL 6.25 MG TABLET PO SCH (19:08)
[2022-03-30] MEDS: SEVELAMER CARBONATE 800 MG TABLET PO SCH (19:10)
[2022-03-30] MEDS: traMADol 50 MG TABLET PO PRN (19:10)
[2022-03-30] MEDS ORDERED: NITROGLYCERIN SL 0.4 MG TABLET SL PRN (19:32)
[2022-03-30 20:25] LABS: High Sensitive Troponin I* 59.6 ng/L (0-54)
[2022-03-30] MEDS: QUEtiapine 25 MG TABLET PO SCH (21:41)
[2022-03-30] MEDS: ROSUVASTATIN 10 MG TABLET PO SCH (21:41)
[2022-03-30] MEDS: MEMANTINE 10 MG TABLET PO SCH (21:41)
[2022-03-30] MEDS: MIRTAZAPINE 30 MG TABLET PO SCH (21:41)
[2022-03-30] MEDS: DONEPEZIL 10 MG TABLET PO SCH (21:42)
[2022-03-30] MEDS: LIDOCAINE 2% TOP JELLY 5 ML TUBE TOP SCH (23:06)
[2022-03-31 05:59] LABS: Basophils % 0.4 % (0.0-0.8); Eosinophils # 0.2 10*3/uL (0.0-0.87); Eosinophils % 1.9 % (0.00-10.9); Hematocrit 31.2 VOL% (35.7-47.0); Hemoglobin 10.1 GM/DL (12.0-16.0); Immature Granulocytes % 1.2 %; Lymphocytes % 23.6 % (21.3-54.2); Mean Corpuscular HGB Conc 32.4 GM/DL (32-36); Mean Corpuscular Volume 91.8 FL (87-102); Mean Platelet Volume 11.4 FL (9.6-12.0); Monocytes # 0.7 10*3/uL (0.11-0.8); Monocytes % 8.6 % (1.7-12.7); Neutrophils % 64.3 % (38.7-73.9); Platelet Count 237 T/CUMM (130-400); White Blood Count 8.4 T/CUMM (4-12)
[2022-03-31 06:17] LABS: Calcium 8.6 MG/DL (8.5-10.1); Osmolality,Calculated 285.4 MOS/KG (273-304); Phosphorous 3.8 MG/DL (2.5-4.9); Potassium 3.3 MMOL/L (3.5-5.1)
[2022-03-31] MEDS: INSULIN REGULAR 100 UNIT/ML SUBCUT SCH ×4 (08:25→21:04)
[2022-03-31] MEDS: SERTRALINE 50 MG TABLET PO SCH (09:12)
[2022-03-31] MEDS: SEVELAMER CARBONATE 800 MG TABLET PO SCH ×2 (09:12→17:04)
[2022-03-31] MEDS: CETIRIZINE 10 MG TABLET PO SCH (09:12)
[2022-03-31] MEDS: carvediloL 6.25 MG TABLET PO SCH ×2 (09:12→17:03)
[2022-03-31] MEDS: ASPIRIN EC 81 MG TABLET PO SCH (09:13)
[2022-03-31] MEDS: DOCUSATE SODIUM 100 MG CAPSULE PO SCH ×4 (09:13→21:03)
[2022-03-31] MEDS: FERROUS SULFATE 325 MG TABLET PO SCH (09:13)
[2022-03-31] MEDS: PANTOPRAZOLE 40 MG TABLET PO SCH (09:13)
[2022-03-31] MEDS: LIDOCAINE 2% TOP JELLY 5 ML TUBE TOP SCH ×2 (13:46→21:05)
[2022-03-31] MEDS: QUEtiapine 25 MG TABLET PO SCH (21:03)
[2022-03-31] MEDS: MEMANTINE 10 MG TABLET PO SCH (21:03)
[2022-03-31] MEDS: ROSUVASTATIN 10 MG TABLET PO SCH (21:03)
[2022-03-31] MEDS: MIRTAZAPINE 30 MG TABLET PO SCH (21:03)
[2022-03-31] MEDS: DONEPEZIL 10 MG TABLET PO SCH (21:03)
[2022-03-31] MEDS: MENTHOL/ZINC OXIDE OINT 71 GM JAR TOP SCH (21:05)
[2022-04-01] MEDS: traMADol 50 MG TABLET PO PRN ×2 (06:34→14:38)
[2022-04-01] MEDS: INSULIN REGULAR 100 UNIT/ML SUBCUT SCH ×4 (11:04→22:01)
[2022-04-01] MEDS: ASPIRIN EC 81 MG TABLET PO SCH (11:04)
[2022-04-01] MEDS: DOCUSATE SODIUM 100 MG CAPSULE PO SCH ×4 (11:05→22:01)
[2022-04-01] MEDS: PANTOPRAZOLE 40 MG TABLET PO SCH (11:06)
[2022-04-01] MEDS: SEVELAMER CARBONATE 800 MG TABLET PO SCH ×2 (11:06→17:22)
[2022-04-01] MEDS: carvediloL 6.25 MG TABLET PO SCH ×2 (11:06→17:22)
[2022-04-01] MEDS: CETIRIZINE 10 MG TABLET PO SCH (11:07)
[2022-04-01] MEDS: SERTRALINE 50 MG TABLET PO SCH (11:07)
[2022-04-01] MEDS: LIDOCAINE 2% TOP JELLY 5 ML TUBE TOP SCH ×2 (11:48→22:03)
[2022-04-01] MEDS: MENTHOL/ZINC OXIDE OINT 71 GM JAR TOP SCH ×2 (11:48→22:03)
[2022-04-01] MEDS ORDERED: LIDOCAINE 2% 5 ML VIAL ONE (11:58)
[2022-04-01] MEDS ORDERED: propofoL 200 MG/20 ML VIAL IV ONE (11:58)
[2022-04-01] MEDS ORDERED: fentaNYL 100 MCG/2 ML VIAL ONE (11:58)
[2022-04-01] MEDS ORDERED: MIDAZOLAM 2 MG/2 ML VIAL ONE (12:33)
[2022-04-01] MEDS ORDERED: KETAMINE 500 MG/10 ML VIAL ONE (12:50)
[2022-04-01] MEDS ORDERED: SODIUM CHLORIDE 0.9% 250 ML IV SCH (13:00)
[2022-04-01] MEDS: ROSUVASTATIN 10 MG TABLET PO SCH (22:02)
[2022-04-01] MEDS: QUEtiapine 25 MG TABLET PO SCH (22:02)
[2022-04-01] MEDS: MEMANTINE 10 MG TABLET PO SCH (22:02)
[2022-04-01] MEDS: DONEPEZIL 10 MG TABLET PO SCH (22:02)
[2022-04-01] MEDS: MIRTAZAPINE 30 MG TABLET PO SCH (22:02)
[2022-04-02 06:01] LABS: Basophils % 0.5 % (0.0-0.8); Eosinophils # 0.1 10*3/uL (0.0-0.87); Eosinophils % 1.2 % (0.00-10.9); Hematocrit 29.8 VOL% (35.7-47.0); Hemoglobin 9.3 GM/DL (12.0-16.0); Immature Granulocytes % 1.4 %; Immature Granulocytes Absolute 0.09 #; Lymphocytes # 1.3 10*3/uL (1.4-4.0); Lymphocytes % 20.5 % (21.3-54.2); Mean Corpuscular HGB Conc 31.2 GM/DL (32-36); Mean Corpuscular Volume 94.3 FL (87-102); Mean Platelet Volume 11.4 FL (9.6-12.0); Monocytes # 0.6 10*3/uL (0.11-0.8); Monocytes % 9.3 % (1.7-12.7); Neutrophils % 67.1 % (38.7-73.9); Platelet Count 216 T/CUMM (130-400); Red Blood Count 3.16 MC/CUMM (3.8-5.5); Red Cell Distribution Width 16.2 % (9.3-17.3); White Blood Count 6.5 T/CUMM (4-12)
[2022-04-02 06:16] LABS: Calcium 9.2 MG/DL (8.5-10.1); Osmolality,Calculated 281.3 MOS/KG (273-304); Potassium 3.3 MMOL/L (3.5-5.1)
[2022-04-02] MEDS: MENTHOL/ZINC OXIDE OINT 71 GM JAR TOP SCH ×2 (10:13→21:16)
[2022-04-02] MEDS: CETIRIZINE 10 MG TABLET PO SCH (10:13)
[2022-04-02] MEDS: PANTOPRAZOLE 40 MG TABLET PO SCH (10:13)
[2022-04-02] MEDS: FERROUS SULFATE 325 MG TABLET PO SCH (10:13)
[2022-04-02] MEDS: ASPIRIN EC 81 MG TABLET PO SCH (10:13)
[2022-04-02] MEDS: SERTRALINE 50 MG TABLET PO SCH (10:14)
[2022-04-02] MEDS: SEVELAMER CARBONATE 800 MG TABLET PO SCH ×2 (16:06→16:40)
[2022-04-02] MEDS: carvediloL 6.25 MG TABLET PO SCH ×2 (16:07→16:40)
[2022-04-02] MEDS: DOCUSATE SODIUM 100 MG CAPSULE PO SCH ×4 (16:07→21:15)
[2022-04-02] MEDS: INSULIN REGULAR 100 UNIT/ML SUBCUT SCH ×4 (16:09→21:15)
[2022-04-02] MEDS: LIDOCAINE 2% TOP JELLY 5 ML TUBE TOP SCH ×2 (19:05→21:16)
[2022-04-02] MEDS: MIRTAZAPINE 30 MG TABLET PO SCH (21:15)
[2022-04-02] MEDS: QUEtiapine 25 MG TABLET PO SCH (21:15)
[2022-04-02] MEDS: DONEPEZIL 10 MG TABLET PO SCH (21:15)
[2022-04-02] MEDS: ROSUVASTATIN 10 MG TABLET PO SCH (21:15)
[2022-04-02] MEDS: MEMANTINE 10 MG TABLET PO SCH (21:15)
[2022-04-03 05:52] LABS: Basophils % 0.8 % (0.0-0.8); Eosinophils # 0.1 10*3/uL (0.0-0.87); Eosinophils % 1.3 % (0.00-10.9); Hematocrit 32.8 VOL% (35.7-47.0); Hemoglobin 10.3 GM/DL (12.0-16.0); Immature Granulocytes % 1.1 %; Immature Granulocytes Absolute 0.06 #; Lymphocytes # 1.5 10*3/uL (1.4-4.0); Lymphocytes % 27.9 % (21.3-54.2); Mean Corpuscular HGB Conc 31.4 GM/DL (32-36); Mean Corpuscular Volume 93.2 FL (87-102); Mean Platelet Volume 11.7 FL (9.6-12.0); Monocytes # 0.5 10*3/uL (0.11-0.8); Monocytes % 9.2 % (1.7-12.7); Neutrophils % 59.7 % (38.7-73.9); Platelet Count 236 T/CUMM (130-400); Red Blood Count 3.52 MC/CUMM (3.8-5.5); Red Cell Distribution Width 16.2 % (9.3-17.3); White Blood Count 5.2 T/CUMM (4-12)
[2022-04-03 06:05] LABS: Calcium 9.4 MG/DL (8.5-10.1); Osmolality,Calculated 274.7 MOS/KG (273-304); Potassium 3.8 MMOL/L (3.5-5.1)
[2022-04-03] MEDS: INSULIN REGULAR 100 UNIT/ML SUBCUT SCH ×4 (08:30→21:41)
[2022-04-03] MEDS: DOCUSATE SODIUM 100 MG CAPSULE PO SCH ×4 (09:40→21:35)
[2022-04-03] MEDS: SEVELAMER CARBONATE 800 MG TABLET PO SCH ×2 (09:41→17:54)
[2022-04-03] MEDS: carvediloL 6.25 MG TABLET PO SCH ×2 (09:41→17:54)
[2022-04-03] MEDS: ASPIRIN EC 81 MG TABLET PO SCH (09:41)
[2022-04-03] MEDS: CETIRIZINE 10 MG TABLET PO SCH (09:41)
[2022-04-03] MEDS: SERTRALINE 50 MG TABLET PO SCH (09:41)
[2022-04-03] MEDS: PANTOPRAZOLE 40 MG TABLET PO SCH (09:41)
[2022-04-03] MEDS: MENTHOL/ZINC OXIDE OINT 71 GM JAR TOP SCH ×2 (09:45→21:36)
[2022-04-03] MEDS: LIDOCAINE 2% TOP JELLY 5 ML TUBE TOP SCH ×2 (09:45→21:37)
[2022-04-03] MEDS: ROSUVASTATIN 10 MG TABLET PO SCH (21:35)
[2022-04-03] MEDS: QUEtiapine 25 MG TABLET PO SCH (21:35)
[2022-04-03] MEDS: MIRTAZAPINE 30 MG TABLET PO SCH (21:35)
[2022-04-03] MEDS: DONEPEZIL 10 MG TABLET PO SCH (21:36)
[2022-04-03] MEDS: MEMANTINE 10 MG TABLET PO SCH (21:37)
[2022-04-04] MEDS: INSULIN REGULAR 100 UNIT/ML SUBCUT SCH ×4 (07:34→22:09)
[2022-04-04] MEDS: carvediloL 6.25 MG TABLET PO SCH ×2 (07:44→17:02)
[2022-04-04] MEDS: CETIRIZINE 10 MG TABLET PO SCH (07:44)
[2022-04-04] MEDS: DOCUSATE SODIUM 100 MG CAPSULE PO SCH ×4 (07:44→22:08)
[2022-04-04] MEDS: PANTOPRAZOLE 40 MG TABLET PO SCH (07:44)
[2022-04-04] MEDS: ASPIRIN EC 81 MG TABLET PO SCH (07:44)
[2022-04-04] MEDS: SEVELAMER CARBONATE 800 MG TABLET PO SCH ×2 (07:44→17:02)
[2022-04-04] MEDS: SERTRALINE 50 MG TABLET PO SCH (07:44)
[2022-04-04] MEDS: MENTHOL/ZINC OXIDE OINT 71 GM JAR TOP SCH ×2 (09:45→22:11)
[2022-04-04] MEDS: LIDOCAINE 2% TOP JELLY 5 ML TUBE TOP SCH ×2 (18:00→22:10)
[2022-04-04] MEDS: DONEPEZIL 10 MG TABLET PO SCH (22:08)
[2022-04-04] MEDS: ROSUVASTATIN 10 MG TABLET PO SCH (22:08)
[2022-04-04] MEDS: QUEtiapine 25 MG TABLET PO SCH (22:09)
[2022-04-04] MEDS: MEMANTINE 10 MG TABLET PO SCH (22:09)
[2022-04-04] MEDS: MIRTAZAPINE 30 MG TABLET PO SCH (22:09)
[2022-04-05] MEDS: CETIRIZINE 10 MG TABLET PO SCH (08:28)
[2022-04-05] MEDS: PANTOPRAZOLE 40 MG TABLET PO SCH (08:28)
[2022-04-05] MEDS: ASPIRIN EC 81 MG TABLET PO SCH (08:28)
[2022-04-05] MEDS: FERROUS SULFATE 325 MG TABLET PO SCH (08:28)
[2022-04-05] MEDS: SERTRALINE 50 MG TABLET PO SCH (08:28)
[2022-04-05] MEDS: DOCUSATE SODIUM 100 MG CAPSULE PO SCH ×4 (08:29→21:14)
[2022-04-05] MEDS: LIDOCAINE 2% TOP JELLY 5 ML TUBE TOP SCH ×2 (08:29→21:15)
[2022-04-05] MEDS: MENTHOL/ZINC OXIDE OINT 71 GM JAR TOP SCH ×2 (08:29→21:15)
[2022-04-05] MEDS: SEVELAMER CARBONATE 800 MG TABLET PO SCH ×2 (08:33→18:56)
[2022-04-05] MEDS: INSULIN REGULAR 100 UNIT/ML SUBCUT SCH ×4 (08:34→21:56)
[2022-04-05] MEDS ORDERED: HEPARIN 10,000 UNIT/10 ML VIAL IV PRN (10:07)
[2022-04-05] MEDS: carvediloL 6.25 MG TABLET PO SCH ×2 (12:18→18:56)
[2022-04-05] MEDS: DONEPEZIL 10 MG TABLET PO SCH (21:13)
[2022-04-05] MEDS: MEGESTROL 40 MG TABLET PO SCH (21:14)
[2022-04-05] MEDS: MIRTAZAPINE 15 MG TABLET PO SCH (21:14)
[2022-04-05] MEDS: ROSUVASTATIN 10 MG TABLET PO SCH (21:14)
[2022-04-05] MEDS: QUEtiapine 25 MG TABLET PO SCH (21:14)
[2022-04-05] MEDS: MEMANTINE 10 MG TABLET PO SCH (21:14)
[2022-04-06 05:28] LABS: Basophils % 0.6 % (0.0-0.8); Eosinophils # 0.1 10*3/uL (0.0-0.87); Eosinophils % 1.2 % (0.00-10.9); Hemoglobin 10.1 GM/DL (12.0-16.0); Immature Granulocytes Absolute 0.05 #; Lymphocytes # 1.5 10*3/uL (1.4-4.0); Lymphocytes % 29.4 % (21.3-54.2); Mean Corpuscular HGB Conc 31.6 GM/DL (32-36); Mean Corpuscular Volume 94.4 FL (87-102); Mean Platelet Volume 11.3 FL (9.6-12.0); Monocytes # 0.5 10*3/uL (0.11-0.8); Monocytes % 9.3 % (1.7-12.7); Neutrophils % 58.5 % (38.7-73.9); Platelet Count 216 T/CUMM (130-400); Red Blood Count 3.39 MC/CUMM (3.8-5.5); Red Cell Distribution Width 16.2 % (9.3-17.3); White Blood Count 4.9 T/CUMM (4-12)
[2022-04-06 05:48] LABS: Calcium 9.5 MG/DL (8.5-10.1); Osmolality,Calculated 284.5 MOS/KG (273-304); Potassium 4.2 MMOL/L (3.5-5.1)
[2022-04-06] MEDS: INSULIN REGULAR 100 UNIT/ML SUBCUT SCH ×4 (08:07→21:48)
[2022-04-06] MEDS: MEGESTROL 40 MG TABLET PO SCH ×2 (09:23→20:39)
[2022-04-06] MEDS: SEVELAMER CARBONATE 800 MG TABLET PO SCH ×2 (09:23→16:53)
[2022-04-06] MEDS: CETIRIZINE 10 MG TABLET PO SCH (09:24)
[2022-04-06] MEDS: PANTOPRAZOLE 40 MG TABLET PO SCH (09:24)
[2022-04-06] MEDS: ASPIRIN EC 81 MG TABLET PO SCH (09:24)
[2022-04-06] MEDS: DOCUSATE SODIUM 100 MG CAPSULE PO SCH ×4 (09:24→20:38)
[2022-04-06] MEDS: SERTRALINE 50 MG TABLET PO SCH (09:24)
[2022-04-06] MEDS: carvediloL 6.25 MG TABLET PO SCH ×2 (09:24→16:53)
[2022-04-06] MEDS: MENTHOL/ZINC OXIDE OINT 71 GM JAR TOP SCH ×2 (09:27→20:40)
[2022-04-06] MEDS: LIDOCAINE 2% TOP JELLY 5 ML TUBE TOP SCH ×2 (09:47→20:40)
[2022-04-06] MEDS: QUEtiapine 25 MG TABLET PO SCH (20:39)
[2022-04-06] MEDS: MIRTAZAPINE 15 MG TABLET PO SCH (20:39)
[2022-04-06] MEDS: ROSUVASTATIN 10 MG TABLET PO SCH (20:39)
[2022-04-06] MEDS: DONEPEZIL 10 MG TABLET PO SCH (20:39)
[2022-04-06] MEDS: MEMANTINE 10 MG TABLET PO SCH (20:40)
[2022-04-07 06:10] LABS: Basophils % 0.6 % (0.0-0.8); Eosinophils # 0.1 10*3/uL (0.0-0.87); Eosinophils % 1.9 % (0.00-10.9); Hematocrit 31.1 VOL% (35.7-47.0); Hemoglobin 9.7 GM/DL (12.0-16.0); Immature Granulocytes % 1.1 %; Immature Granulocytes Absolute 0.06 #; Lymphocytes # 1.4 10*3/uL (1.4-4.0); Mean Corpuscular HGB Conc 31.2 GM/DL (32-36); Mean Corpuscular Volume 93.1 FL (87-102); Mean Platelet Volume 11.1 FL (9.6-12.0); Monocytes # 0.4 10*3/uL (0.11-0.8); Monocytes % 6.9 % (1.7-12.7); Neutrophils % 62.5 % (38.7-73.9); Platelet Count 228 T/CUMM (130-400); Red Blood Count 3.34 MC/CUMM (3.8-5.5); Red Cell Distribution Width 16.3 % (9.3-17.3); White Blood Count 5.3 T/CUMM (4-12)
[2022-04-07 06:34] LABS: Alanine Aminotransferase < 9 U/L (13-56); Albumin 2.2 G/DL (3.4-5.0); Alkaline Phosphatase 96 U/L (45-117); Aspartate Amino Transferase 16 U/L (0-37); Bilirubin,Total < 0.39 MG/DL (0.20-1.00); Blood Urea Nitrogen 49 MG/DL (7-18); Calcium 9.5 MG/DL (8.5-10.1); Carbon Dioxide 25 MMOL/L (21-32); Chloride 103 MMOL/L (98-107); Glucose 94 MG/DL (74-106); Osmolality,Calculated 289.5 MOS/KG (273-304); Phosphorous 2.6 MG/DL (2.5-4.9); Potassium 4.1 MMOL/L (3.5-5.1); Sodium 139 MMOL/L (136-145); Total Protein 5.9 G/DL (6.4-8.2)
[2022-04-07] MEDS: INSULIN REGULAR 100 UNIT/ML SUBCUT SCH ×4 (08:02→20:50)
[2022-04-07] MEDS: DOCUSATE SODIUM 100 MG CAPSULE PO SCH ×4 (12:30→20:49)
[2022-04-07] MEDS: carvediloL 6.25 MG TABLET PO SCH ×2 (12:30→16:38)
[2022-04-07] MEDS: SEVELAMER CARBONATE 800 MG TABLET PO SCH ×2 (12:31→16:39)
[2022-04-07] MEDS: LIDOCAINE 2% TOP JELLY 5 ML TUBE TOP SCH ×2 (12:33→20:50)
[2022-04-07] MEDS: MEGESTROL 40 MG TABLET PO SCH ×2 (12:47→20:49)
[2022-04-07] MEDS: PANTOPRAZOLE 40 MG TABLET PO SCH (12:47)
[2022-04-07] MEDS: SERTRALINE 50 MG TABLET PO SCH (12:48)
[2022-04-07] MEDS: FERROUS SULFATE 325 MG TABLET PO SCH (12:48)
[2022-04-07] MEDS: MENTHOL/ZINC OXIDE OINT 71 GM JAR TOP SCH ×2 (12:48→20:50)
[2022-04-07] MEDS: CETIRIZINE 10 MG TABLET PO SCH (12:48)
[2022-04-07] MEDS: ASPIRIN EC 81 MG TABLET PO SCH (12:48)
[2022-04-07] MEDS: DONEPEZIL 10 MG TABLET PO SCH (20:49)
[2022-04-07] MEDS: MEMANTINE 10 MG TABLET PO SCH (20:49)
[2022-04-07] MEDS: ROSUVASTATIN 10 MG TABLET PO SCH (20:49)
[2022-04-07] MEDS: MIRTAZAPINE 15 MG TABLET PO SCH (20:49)
[2022-04-07] MEDS: QUEtiapine 25 MG TABLET PO SCH (20:49)
[2022-04-08 04:58] LABS: Basophils # 0.1 10*3/uL (0.0-0.2); Basophils % 0.7 % (0.0-0.8); Eosinophils # 0.1 10*3/uL (0.0-0.87); Eosinophils % 0.7 % (0.00-10.9); Hematocrit 30.3 VOL% (35.7-47.0); Hemoglobin 9.4 GM/DL (12.0-16.0); Immature Granulocytes % 1.2 %; Immature Granulocytes Absolute 0.08 #; Lymphocytes # 1.3 10*3/uL (1.4-4.0); Lymphocytes % 19.5 % (21.3-54.2); Mean Corpuscular Volume 94.1 FL (87-102); Mean Platelet Volume 11.3 FL (9.6-12.0); Monocytes # 0.5 10*3/uL (0.11-0.8); Neutrophils % 70.9 % (38.7-73.9); Platelet Count 210 T/CUMM (130-400); Red Blood Count 3.22 MC/CUMM (3.8-5.5); Red Cell Distribution Width 16.4 % (9.3-17.3); White Blood Count 6.7 T/CUMM (4-12)
[2022-04-08 05:18] LABS: Calcium 9.2 MG/DL (8.5-10.1); Potassium 4.2 MMOL/L (3.5-5.1)
[2022-04-08] MEDS: INSULIN REGULAR 100 UNIT/ML SUBCUT SCH ×4 (08:23→21:28)
[2022-04-08] MEDS: DOCUSATE SODIUM 100 MG CAPSULE PO SCH ×4 (09:02→21:27)
[2022-04-08] MEDS: MEGESTROL 40 MG TABLET PO SCH ×2 (09:02→21:27)
[2022-04-08] MEDS: CETIRIZINE 10 MG TABLET PO SCH (09:02)
[2022-04-08] MEDS: SERTRALINE 50 MG TABLET PO SCH (09:02)
[2022-04-08] MEDS: SEVELAMER CARBONATE 800 MG TABLET PO SCH ×2 (09:02→17:02)
[2022-04-08] MEDS: carvediloL 6.25 MG TABLET PO SCH ×2 (09:03→17:02)
[2022-04-08] MEDS: ASPIRIN EC 81 MG TABLET PO SCH (09:03)
[2022-04-08] MEDS: MENTHOL/ZINC OXIDE OINT 71 GM JAR TOP SCH ×2 (09:03→21:28)
[2022-04-08] MEDS: PANTOPRAZOLE 40 MG TABLET PO SCH (09:03)
[2022-04-08] MEDS: LIDOCAINE 2% TOP JELLY 5 ML TUBE TOP SCH ×2 (09:04→21:34)
[2022-04-08] MEDS: MIRTAZAPINE 15 MG TABLET PO SCH (21:27)
[2022-04-08] MEDS: DONEPEZIL 10 MG TABLET PO SCH (21:27)
[2022-04-08] MEDS: QUEtiapine 25 MG TABLET PO SCH (21:27)
[2022-04-08] MEDS: MEMANTINE 10 MG TABLET PO SCH (21:27)
[2022-04-08] MEDS: ROSUVASTATIN 10 MG TABLET PO SCH (21:31)
[2022-04-09 05:05] LABS: Basophils % 0.4 % (0.0-0.8); Eosinophils # 0.1 10*3/uL (0.0-0.87); Eosinophils % 1.3 % (0.00-10.9); Hematocrit 28.1 VOL% (35.7-47.0); Hemoglobin 8.8 GM/DL (12.0-16.0); Immature Granulocytes % 0.9 %; Immature Granulocytes Absolute 0.05 #; Lymphocytes # 0.8 10*3/uL (1.4-4.0); Lymphocytes % 15.7 % (21.3-54.2); Mean Corpuscular HGB Conc 31.3 GM/DL (32-36); Mean Corpuscular Volume 92.4 FL (87-102); Mean Platelet Volume 11.3 FL (9.6-12.0); Monocytes # 0.4 10*3/uL (0.11-0.8); Monocytes % 6.6 % (1.7-12.7); Neutrophils % 75.1 % (38.7-73.9); Platelet Count 202 T/CUMM (130-400); Red Blood Count 3.04 MC/CUMM (3.8-5.5); Red Cell Distribution Width 16.3 % (9.3-17.3); White Blood Count 5.3 T/CUMM (4-12)
[2022-04-09 05:27] LABS: Calcium 9.2 MG/DL (8.5-10.1); Osmolality,Calculated 293.5 MOS/KG (273-304); Potassium 4.4 MMOL/L (3.5-5.1)
[2022-04-09] MEDS: INSULIN REGULAR 100 UNIT/ML SUBCUT SCH ×4 (09:19→20:56)
[2022-04-09] MEDS: ASPIRIN EC 81 MG TABLET PO SCH (09:20)
[2022-04-09] MEDS: DOCUSATE SODIUM 100 MG CAPSULE PO SCH ×5 (09:20→20:54)
[2022-04-09] MEDS: CETIRIZINE 10 MG TABLET PO SCH (09:20)
[2022-04-09] MEDS: LIDOCAINE 2% TOP JELLY 5 ML TUBE TOP SCH ×2 (09:21→20:56)
[2022-04-09] MEDS: carvediloL 6.25 MG TABLET PO SCH ×2 (09:24→17:24)
[2022-04-09] MEDS: SEVELAMER CARBONATE 800 MG TABLET PO SCH ×3 (12:55→18:19)
[2022-04-09] MEDS: SERTRALINE 50 MG TABLET PO SCH (13:09)
[2022-04-09] MEDS: PANTOPRAZOLE 40 MG TABLET PO SCH (13:09)
[2022-04-09] MEDS: MEGESTROL 40 MG TABLET PO SCH ×2 (13:09→20:55)
[2022-04-09] MEDS: FERROUS SULFATE 325 MG TABLET PO SCH (13:10)
[2022-04-09] MEDS: MENTHOL/ZINC OXIDE OINT 71 GM JAR TOP SCH ×2 (13:38→20:56)
[2022-04-09] MEDS: MEMANTINE 10 MG TABLET PO SCH (20:54)
[2022-04-09] MEDS: DONEPEZIL 10 MG TABLET PO SCH (20:55)
[2022-04-09] MEDS: MIRTAZAPINE 15 MG TABLET PO SCH (20:55)
[2022-04-09] MEDS: ROSUVASTATIN 10 MG TABLET PO SCH (20:55)
[2022-04-09] MEDS: QUEtiapine 25 MG TABLET PO SCH (20:55)
[2022-04-10] MEDS: SERTRALINE 50 MG TABLET PO SCH (09:08)
[2022-04-10] MEDS: SEVELAMER CARBONATE 800 MG TABLET PO SCH (09:08)
[2022-04-10] MEDS: ASPIRIN EC 81 MG TABLET PO SCH (09:08)
[2022-04-10] MEDS: carvediloL 6.25 MG TABLET PO SCH (09:08)
[2022-04-10] MEDS: MEGESTROL 40 MG TABLET PO SCH (09:08)
[2022-04-10] MEDS: DOCUSATE SODIUM 100 MG CAPSULE PO SCH ×2 (09:08→09:14)
[2022-04-10] MEDS: PANTOPRAZOLE 40 MG TABLET PO SCH (09:08)
[2022-04-10] MEDS: CETIRIZINE 10 MG TABLET PO SCH (09:08)
[2022-04-10] MEDS: MENTHOL/ZINC OXIDE OINT 71 GM JAR TOP SCH (09:09)
[2022-04-10] MEDS: INSULIN REGULAR 100 UNIT/ML SUBCUT SCH ×2 (09:13→12:25)
[2022-04-10] MEDS: LIDOCAINE 2% TOP JELLY 5 ML TUBE TOP SCH (09:14)
[2022-04-10 12:20] VITALS: BP 122/53
== END 2022-04-10 12:43 | DRG 264 ==
LOC: EDUNIT# → EDBD → N.ED 12:34 → N.EDINP 12:34 → N.TELES 03-30 14:45
PROVIDERS: ADMIT Internal Medicine; ATTEND Internal Medicine

== ENCOUNTER 2022-05-01 13:42 | Inpatient (IN) ==
[2022-05-01 15:51] LABS: Blood Urea Nitrogen 19 MG/DL (7-18); Calcium 9.1 MG/DL (8.5-10.1); Carbon Dioxide 23 MMOL/L (21-32); Chloride 102 MMOL/L (98-107); Glucose 183 MG/DL (74-106); Osmolality,Calculated 279.8 MOS/KG (273-304); Potassium 3.2 MMOL/L (3.5-5.1); Sodium 137 MMOL/L (136-145)
[2022-05-01 16:00] LABS: Basophils % 0.2 % (0.0-0.8); Eosinophils % 0.2 % (0.00-10.9); Hematocrit 25.6 VOL% (35.7-47.0); Hemoglobin 7.8 GM/DL (12.0-16.0); Immature Granulocytes % 1.5 %; Immature Granulocytes Absolute 0.17 #; Lymphocytes # 1.7 10*3/uL (1.4-4.0); Lymphocytes % 15.4 % (21.3-54.2); Mean Corpuscular HGB Conc 30.5 GM/DL (32-36); Mean Corpuscular Volume 95.9 FL (87-102); Monocytes # 0.5 10*3/uL (0.11-0.8); Monocytes % 4.4 % (1.7-12.7); Neutrophils % 78.3 % (38.7-73.9); Platelet Count 263 T/CUMM (130-400); Red Blood Count 2.67 MC/CUMM (3.8-5.5); Red Cell Distribution Width 17.4 % (9.3-17.3)
[2022-05-01] MEDS ORDERED: GLUCAGON 1 MG VIAL IM PRN (16:07)
[2022-05-01] MEDS ORDERED: ACETAMINOPHEN 325 MG TABLET PO PRN (16:07)
[2022-05-01] MEDS ORDERED: DEXTROSE 50% 25 GM/50 ML VIAL IV PRN (16:07)
[2022-05-01] MEDS ORDERED: ONDANSETRON 4 MG/2 ML VIAL IV PRN (16:07)
[2022-05-01] MEDS ORDERED: NITROGLYCERIN SL 0.4 MG TABLET SL PRN (16:08)
[2022-05-01] MEDS ORDERED: cloNIDine 0.1 MG TABLET PO PRN (16:08)
[2022-05-01] MEDS ORDERED: ONDANSETRON 4 MG/2 ML VIAL IM PRN (16:08)
[2022-05-01] MEDS ORDERED: MAGNESIUM HYDROXIDE SUSP 30 ML UDCUP PO PRN (16:08)
[2022-05-01] MEDS ORDERED: ZINC OXIDE PASTE 113 GM TUBE TOP PRN ×2 (16:08)
[2022-05-01] MEDS: SODIUM CHLORIDE 0.45% 1,000 ML IV SCH (16:33)
[2022-05-01] MEDS: DOCUSATE SODIUM 100 MG CAPSULE PO SCH (17:11)
[2022-05-01] MEDS: carvediloL 6.25 MG TABLET PO SCH (17:11)
[2022-05-01] MEDS: INSULIN LISPRO 100 UNIT/ML SUBCUT SCH ×2 (17:13→22:05)
[2022-05-01] MEDS ORDERED: HEPARIN 10,000 UNIT/10 ML VIAL IV PRN (19:22)
[2022-05-01] MEDS ORDERED: BISACODYL 5 MG TABLET PO PRN (19:28)
[2022-05-01] MEDS ORDERED: NUT TX IMP RENAL FXN LAC REDUC PO SCH (21:00)
[2022-05-01] MEDS ORDERED: DOCUSATE SODIUM 100 MG CAPSULE PO SCH (21:00)
[2022-05-01] MEDS ORDERED: NON-FORMULARY MEDICATION (Docusate Sodium Cap [Colace Cap] 100 MG) PO SCH (21:00)
[2022-05-01] MEDS ORDERED: [UNRECOGNIZED DRUG - OTHER] PO SCH (21:00)
[2022-05-01] MEDS: FOLIC ACID 1 MG TABLET PO SCH (21:58)
[2022-05-01] MEDS: MIRTAZAPINE 30 MG TABLET PO SCH (21:58)
[2022-05-01] MEDS: ROSUVASTATIN 10 MG TABLET PO SCH (21:58)
[2022-05-01] MEDS: MEGESTROL 40 MG TABLET PO SCH (21:58)
[2022-05-01] MEDS: MEMANTINE 10 MG TABLET PO SCH (21:58)
[2022-05-01] MEDS: DONEPEZIL 10 MG TABLET PO SCH (21:58)
[2022-05-01] MEDS: LIDOCAINE 2% TOP JELLY 5 ML TUBE TOP SCH (21:59)
[2022-05-01] MEDS: QUEtiapine 100 MG TABLET PO SCH (22:06)
[2022-05-02] MEDS ORDERED: INFLUENZA VIRUS VACCINE 0.5 ML SYRINGE IM ONE (06:00)
[2022-05-02] MEDS: INSULIN LISPRO 100 UNIT/ML SUBCUT SCH ×4 (07:59→22:26)
[2022-05-02] MEDS ORDERED: SEVELAMER CARBONATE 800 MG TABLET PO SCH (08:00)
[2022-05-02] MEDS ORDERED: PROTEIN HYDROLYSATE MILK PO SCH (09:00)
[2022-05-02] MEDS ORDERED: [UNRECOGNIZED DRUG - OTHER] PO SCH (09:00)
[2022-05-02] MEDS: carvediloL 6.25 MG TABLET PO SCH ×2 (09:06→16:22)
[2022-05-02] MEDS: traMADol 50 MG TABLET PO PRN (09:06)
[2022-05-02] MEDS: CETIRIZINE 10 MG TABLET PO SCH (09:06)
[2022-05-02] MEDS: DOCUSATE SODIUM 100 MG CAPSULE PO SCH ×2 (09:06→16:22)
[2022-05-02] MEDS: SEVELAMER CARBONATE 800 MG TABLET PO SCH ×3 (09:06→16:22)
[2022-05-02] MEDS: MEGESTROL 40 MG TABLET PO SCH ×2 (09:06→22:23)
[2022-05-02] MEDS: SERTRALINE 50 MG TABLET PO SCH (09:06)
[2022-05-02] MEDS: ASPIRIN EC 81 MG TABLET PO SCH (09:06)
[2022-05-02] MEDS: PANTOPRAZOLE 40 MG TABLET PO SCH (09:06)
[2022-05-02] MEDS: CRAN VITC MANNOSE FOS BROMELN PO SCH ×2 (09:11→16:22)
[2022-05-02] MEDS: MENTHOL/ZINC OXIDE OINT 71 GM JAR TOP SCH ×2 (09:11→22:23)
[2022-05-02] MEDS: LIDOCAINE 2% TOP JELLY 5 ML TUBE TOP SCH (09:11)
[2022-05-02] MEDS: DEXTROSE 10% 250 ML BAG IV PRN (15:36)
[2022-05-02] MEDS: SODIUM CHLORIDE 0.45% 1,000 ML IV SCH (18:14)
[2022-05-02] MEDS: MIRTAZAPINE 30 MG TABLET PO SCH (22:23)
[2022-05-02] MEDS: DONEPEZIL 10 MG TABLET PO SCH (22:23)
[2022-05-02] MEDS: ROSUVASTATIN 10 MG TABLET PO SCH (22:23)
[2022-05-02] MEDS: QUEtiapine 100 MG TABLET PO SCH (22:24)
[2022-05-02] MEDS: MEMANTINE 10 MG TABLET PO SCH (22:24)
[2022-05-02] MEDS: FOLIC ACID 1 MG TABLET PO SCH (22:24)
[2022-05-03] MEDS: LIDOCAINE 2% TOP JELLY 5 ML TUBE TOP SCH ×3 (05:11→22:46)
[2022-05-03] MEDS: INSULIN LISPRO 100 UNIT/ML SUBCUT SCH ×4 (09:09→21:04)
[2022-05-03] MEDS: carvediloL 6.25 MG TABLET PO SCH ×2 (09:10→16:55)
[2022-05-03] MEDS: FERROUS SULFATE 325 MG TABLET PO SCH (09:10)
[2022-05-03] MEDS: CETIRIZINE 10 MG TABLET PO SCH (09:10)
[2022-05-03] MEDS: DOCUSATE SODIUM 100 MG CAPSULE PO SCH ×2 (09:10→16:55)
[2022-05-03] MEDS: SEVELAMER CARBONATE 800 MG TABLET PO SCH ×3 (09:10→16:55)
[2022-05-03] MEDS: MEGESTROL 40 MG TABLET PO SCH ×2 (09:10→21:03)
[2022-05-03] MEDS: ASPIRIN EC 81 MG TABLET PO SCH (09:11)
[2022-05-03] MEDS: SERTRALINE 50 MG TABLET PO SCH (09:11)
[2022-05-03] MEDS: PANTOPRAZOLE 40 MG TABLET PO SCH (09:11)
[2022-05-03] MEDS: CRAN VITC MANNOSE FOS BROMELN PO SCH ×2 (10:24→16:54)
[2022-05-03] MEDS: MENTHOL/ZINC OXIDE OINT 71 GM JAR TOP SCH ×2 (10:25→21:04)
[2022-05-03] MEDS: FOLIC ACID 1 MG TABLET PO SCH (21:03)
[2022-05-03] MEDS: DONEPEZIL 10 MG TABLET PO SCH (21:03)
[2022-05-03] MEDS: QUEtiapine 100 MG TABLET PO SCH (21:03)
[2022-05-03] MEDS: MIRTAZAPINE 30 MG TABLET PO SCH (21:03)
[2022-05-03] MEDS: MEMANTINE 10 MG TABLET PO SCH (21:03)
[2022-05-03] MEDS: ROSUVASTATIN 10 MG TABLET PO SCH (21:03)
[2022-05-03] MEDS: SODIUM CHLORIDE 0.45% 1,000 ML IV SCH (23:10)
[2022-05-04 06:38] LABS: Basophils % 0.3 % (0.0-0.8); Eosinophils # 0.1 10*3/uL (0.0-0.87); Eosinophils % 2.1 % (0.00-10.9); Hematocrit 22.4 VOL% (35.7-47.0); Immature Granulocytes Absolute 0.13 #; Lymphocytes # 1.8 10*3/uL (1.4-4.0); Lymphocytes % 27.3 % (21.3-54.2); Mean Corpuscular HGB Conc 31.3 GM/DL (32-36); Mean Corpuscular Volume 92.9 FL (87-102); Mean Platelet Volume 10.7 FL (9.6-12.0); Monocytes # 0.5 10*3/uL (0.11-0.8); Monocytes % 6.9 % (1.7-12.7); Neutrophils % 61.4 % (38.7-73.9); Platelet Count 268 T/CUMM (130-400); Red Blood Count 2.41 MC/CUMM (3.8-5.5); Red Cell Distribution Width 17.1 % (9.3-17.3); White Blood Count 6.6 T/CUMM (4-12)
[2022-05-04 06:51] LABS: Calcium 8.5 MG/DL (8.5-10.1); Osmolality,Calculated 276.1 MOS/KG (273-304)
[2022-05-04] MEDS: INSULIN LISPRO 100 UNIT/ML SUBCUT SCH ×4 (09:01→21:10)
[2022-05-04] MEDS: CRAN VITC MANNOSE FOS BROMELN PO SCH ×2 (09:02→18:19)
[2022-05-04] MEDS: LIDOCAINE 2% TOP JELLY 5 ML TUBE TOP SCH ×2 (09:05→21:10)
[2022-05-04] MEDS: ASPIRIN EC 81 MG TABLET PO SCH (09:15)
[2022-05-04] MEDS: PANTOPRAZOLE 40 MG TABLET PO SCH (09:15)
[2022-05-04] MEDS: DOCUSATE SODIUM 100 MG CAPSULE PO SCH ×2 (09:15→18:19)
[2022-05-04] MEDS: MEGESTROL 40 MG TABLET PO SCH ×2 (09:15→20:56)
[2022-05-04] MEDS: CETIRIZINE 10 MG TABLET PO SCH (09:15)
[2022-05-04] MEDS: carvediloL 6.25 MG TABLET PO SCH ×2 (09:15→18:19)
[2022-05-04] MEDS: SEVELAMER CARBONATE 800 MG TABLET PO SCH ×3 (09:15→18:20)
[2022-05-04] MEDS: SERTRALINE 50 MG TABLET PO SCH (09:15)
[2022-05-04] MEDS: MENTHOL/ZINC OXIDE OINT 71 GM JAR TOP SCH ×2 (09:19→20:57)
[2022-05-04] MEDS ORDERED: POTASSIUM CHLORIDE 20 MEQ TABLET PO SCH (15:00)
[2022-05-04] MEDS: POTASSIUM CHLORIDE 20 MEQ TABLET PO SCH (18:20)
[2022-05-04] MEDS: MEMANTINE 10 MG TABLET PO SCH (20:56)
[2022-05-04] MEDS: FOLIC ACID 1 MG TABLET PO SCH (20:56)
[2022-05-04] MEDS: ROSUVASTATIN 10 MG TABLET PO SCH (20:56)
[2022-05-04] MEDS: DONEPEZIL 10 MG TABLET PO SCH (20:56)
[2022-05-04] MEDS: MIRTAZAPINE 30 MG TABLET PO SCH (20:57)
[2022-05-04] MEDS: QUEtiapine 100 MG TABLET PO SCH (20:57)
[2022-05-05] MEDS: SODIUM CHLORIDE 0.45% 1,000 ML IV SCH (01:32)
[2022-05-05 04:41] LABS: Basophils % 0.2 % (0.0-0.8); Eosinophils % 0.4 % (0.00-10.9); Hemoglobin 7.4 GM/DL (12.0-16.0); Immature Granulocytes % 1.3 %; Immature Granulocytes Absolute 0.11 #; Lymphocytes # 1.4 10*3/uL (1.4-4.0); Mean Corpuscular HGB Conc 30.8 GM/DL (32-36); Mean Corpuscular Volume 93.4 FL (87-102); Mean Platelet Volume 10.9 FL (9.6-12.0); Monocytes # 0.4 10*3/uL (0.11-0.8); Monocytes % 4.9 % (1.7-12.7); Neutrophils % 77.2 % (38.7-73.9); Platelet Count 300 T/CUMM (130-400); Red Blood Count 2.57 MC/CUMM (3.8-5.5); Red Cell Distribution Width 17.1 % (9.3-17.3); White Blood Count 8.6 T/CUMM (4-12)
[2022-05-05 05:11] LABS: Calcium 8.4 MG/DL (8.5-10.1); Osmolality,Calculated 278.7 MOS/KG (273-304); Potassium 3.9 MMOL/L (3.5-5.1)
[2022-05-05] MEDS: MEGESTROL 40 MG TABLET PO SCH ×3 (09:19→22:14)
[2022-05-05] MEDS: CETIRIZINE 10 MG TABLET PO SCH (09:20)
[2022-05-05] MEDS: POTASSIUM CHLORIDE 20 MEQ TABLET PO SCH (09:20)
[2022-05-05] MEDS: DOCUSATE SODIUM 100 MG CAPSULE PO SCH ×2 (09:20→18:11)
[2022-05-05] MEDS: FERROUS SULFATE 325 MG TABLET PO SCH (09:20)
[2022-05-05] MEDS: carvediloL 6.25 MG TABLET PO SCH ×2 (09:20→18:11)
[2022-05-05] MEDS: SERTRALINE 50 MG TABLET PO SCH (09:20)
[2022-05-05] MEDS: SEVELAMER CARBONATE 800 MG TABLET PO SCH ×3 (09:20→18:11)
[2022-05-05] MEDS: PANTOPRAZOLE 40 MG TABLET PO SCH (09:20)
[2022-05-05] MEDS: ASPIRIN EC 81 MG TABLET PO SCH (09:20)
[2022-05-05] MEDS: LIDOCAINE 2% TOP JELLY 5 ML TUBE TOP SCH ×2 (09:21→22:16)
[2022-05-05] MEDS: CRAN VITC MANNOSE FOS BROMELN PO SCH ×2 (10:03→18:39)
[2022-05-05] MEDS: INSULIN LISPRO 100 UNIT/ML SUBCUT SCH ×4 (10:03→21:48)
[2022-05-05] MEDS: MENTHOL/ZINC OXIDE OINT 71 GM JAR TOP SCH ×2 (12:16→21:46)
[2022-05-05] MEDS ORDERED: SODIUM CHLORIDE 0.9% 1,000 ML IV PRN (20:21)
[2022-05-05] MEDS: MIRTAZAPINE 30 MG TABLET PO SCH ×2 (21:45→22:14)
[2022-05-05] MEDS: MEMANTINE 10 MG TABLET PO SCH ×2 (21:45→22:14)
[2022-05-05] MEDS: QUEtiapine 100 MG TABLET PO SCH (21:45)
[2022-05-05] MEDS: ROSUVASTATIN 10 MG TABLET PO SCH ×2 (21:46→22:14)
[2022-05-05] MEDS: DONEPEZIL 10 MG TABLET PO SCH ×2 (21:46→22:13)
[2022-05-05] MEDS: FOLIC ACID 1 MG TABLET PO SCH (21:46)
[2022-05-06] MEDS: FOLIC ACID 1 MG TABLET PO SCH ×2 (00:12→21:55)
[2022-05-06] MEDS: SODIUM CHLORIDE 0.45% 1,000 ML IV SCH (00:32)
[2022-05-06] MEDS: DEXTROSE 10% 250 ML BAG IV PRN (04:29)
[2022-05-06 05:45] LABS: Basophils % 0.2 % (0.0-0.8); Eosinophils # 0.1 10*3/uL (0.0-0.87); Eosinophils % 1.6 % (0.00-10.9); Hematocrit 20.4 VOL% (35.7-47.0); Immature Granulocytes % 1.8 %; Immature Granulocytes Absolute 0.08 #; Lymphocytes # 1.1 10*3/uL (1.4-4.0); Lymphocytes % 24.8 % (21.3-54.2); Mean Corpuscular HGB Conc 30.9 GM/DL (32-36); Mean Corpuscular Volume 94.4 FL (87-102); Mean Platelet Volume 10.9 FL (9.6-12.0); Monocytes # 0.1 10*3/uL (0.11-0.8); Monocytes % 3.2 % (1.7-12.7); Neutrophils % 68.4 % (38.7-73.9); Platelet Count 257 T/CUMM (130-400); Red Blood Count 2.16 MC/CUMM (3.8-5.5); Red Cell Distribution Width 17.2 % (9.3-17.3); White Blood Count 4.4 T/CUMM (4-12)
[2022-05-06 05:47] LABS: Hemoglobin 6.3 GM/DL (12.0-16.0)
[2022-05-06 05:58] LABS: Calcium 8.3 MG/DL (8.5-10.1); Osmolality,Calculated 280.7 MOS/KG (273-304); Potassium 3.3 MMOL/L (3.5-5.1)
[2022-05-06] MEDS ORDERED: SODIUM CHLORIDE 0.9% 1,000 ML IV PRN (06:01)
[2022-05-06] MEDS ORDERED: ETOMIDATE 40 MG/20 ML VIAL IV ONE (08:33)
[2022-05-06] MEDS ORDERED: propofoL 200 MG/20 ML VIAL IV ONE (08:33)
[2022-05-06] MEDS ORDERED: ROCURONIUM 50 MG/5 ML VIAL IV ONE (08:33)
[2022-05-06] MEDS ORDERED: LIDOCAINE 2% 5 ML VIAL ONE (08:33)
[2022-05-06] MEDS ORDERED: fentaNYL 100 MCG/2 ML VIAL ONE (08:33)
[2022-05-06] MEDS ORDERED: ONDANSETRON 4 MG/2 ML VIAL ONE (08:33)
[2022-05-06] MEDS ORDERED: SEVOFLURANE 1 UNIT/15 MINUTE INH ONE ×4 (08:36→10:41)
[2022-05-06] MEDS ORDERED: PHENYLEPHRINE 10 MG/1 ML VIAL IV ONE (08:37)
[2022-05-06] MEDS ORDERED: SODIUM CHLORIDE 0.9% 500 ML IV ONE ×2 (10:04)
[2022-05-06] MEDS: INSULIN LISPRO 100 UNIT/ML SUBCUT SCH ×3 (10:14→16:42)
[2022-05-06] MEDS: MEGESTROL 40 MG TABLET PO SCH ×2 (10:15→21:54)
[2022-05-06] MEDS: MENTHOL/ZINC OXIDE OINT 71 GM JAR TOP SCH (10:15)
[2022-05-06] MEDS: CRAN VITC MANNOSE FOS BROMELN PO SCH ×2 (10:15→17:13)
[2022-05-06] MEDS: SEVELAMER CARBONATE 800 MG TABLET PO SCH ×3 (10:15→17:28)
[2022-05-06] MEDS: DOCUSATE SODIUM 100 MG CAPSULE PO SCH ×2 (10:15→16:46)
[2022-05-06] MEDS: ASPIRIN EC 81 MG TABLET PO SCH (10:15)
[2022-05-06] MEDS: carvediloL 6.25 MG TABLET PO SCH ×2 (10:15→16:46)
[2022-05-06] MEDS: CETIRIZINE 10 MG TABLET PO SCH (10:16)
[2022-05-06] MEDS: SERTRALINE 50 MG TABLET PO SCH (10:16)
[2022-05-06] MEDS: PANTOPRAZOLE 40 MG TABLET PO SCH (10:16)
[2022-05-06] MEDS: LIDOCAINE 2% TOP JELLY 5 ML TUBE TOP SCH (10:17)
[2022-05-06] MEDS ORDERED: GLYCOPYRROLATE 0.4 MG/2 ML VIAL ONE (10:33)
[2022-05-06] MEDS ORDERED: NEOSTIGMINE 10 MG/10 ML VIAL ONE (10:34)
[2022-05-06] MEDS ORDERED: HEPARIN 10,000 UNIT/10 ML VIAL ONE (10:41)
[2022-05-06 18:28] LABS: Hematocrit 33.1 VOL% (35.7-47.0); Hemoglobin 11.1 GM/DL (12.0-16.0)
[2022-05-06] MEDS: MIRTAZAPINE 30 MG TABLET PO SCH (21:54)
[2022-05-06] MEDS: ROSUVASTATIN 10 MG TABLET PO SCH (21:54)
[2022-05-06] MEDS: DONEPEZIL 10 MG TABLET PO SCH (21:54)
[2022-05-06] MEDS: MEMANTINE 10 MG TABLET PO SCH (21:54)
[2022-05-06] MEDS: QUEtiapine 100 MG TABLET PO SCH (21:54)
[2022-05-06] MEDS: traMADol 50 MG TABLET PO PRN (22:09)
[2022-05-07] MEDS: INSULIN LISPRO 100 UNIT/ML SUBCUT SCH ×5 (00:37→21:45)
[2022-05-07] MEDS: SODIUM CHLORIDE 0.45% 1,000 ML IV SCH ×2 (00:39→21:53)
[2022-05-07] MEDS: LIDOCAINE 2% TOP JELLY 5 ML TUBE TOP SCH ×3 (00:39→21:51)
[2022-05-07] MEDS: MENTHOL/ZINC OXIDE OINT 71 GM JAR TOP SCH ×3 (00:40→21:54)
[2022-05-07] MEDS: cefTRIAXone 1,000 MG in SODIUM CHLORIDE 0.9% 100 ML IV SCH ×2 (00:46→22:58)
[2022-05-07] MEDS: traMADol 50 MG TABLET PO PRN ×2 (05:47→21:31)
[2022-05-07 07:46] LABS: Basophils # 0.1 10*3/uL (0.0-0.2); Basophils % 0.7 % (0.0-0.8); Eosinophils # 0.2 10*3/uL (0.0-0.87); Eosinophils % 2.3 % (0.00-10.9); Hematocrit 33.3 VOL% (35.7-47.0); Immature Granulocytes % 1.2 %; Immature Granulocytes Absolute 0.09 #; Lymphocytes # 1.7 10*3/uL (1.4-4.0); Lymphocytes % 22.3 % (21.3-54.2); Mean Platelet Volume 10.9 FL (9.6-12.0); Monocytes # 0.6 10*3/uL (0.11-0.8); Monocytes % 8.6 % (1.7-12.7); Neutrophils % 64.9 % (38.7-73.9); Platelet Count 226 T/CUMM (130-400); Red Blood Count 3.87 MC/CUMM (3.8-5.5); Red Cell Distribution Width 18.7 % (9.3-17.3); White Blood Count 7.5 T/CUMM (4-12)
[2022-05-07 08:06] LABS: Calcium 8.1 MG/DL (8.5-10.1); Osmolality,Calculated 275.5 MOS/KG (273-304); Potassium 3.8 MMOL/L (3.5-5.1)
[2022-05-07] MEDS: FERROUS SULFATE 325 MG TABLET PO SCH (09:50)
[2022-05-07] MEDS: DOCUSATE SODIUM 100 MG CAPSULE PO SCH ×2 (09:50→18:14)
[2022-05-07] MEDS: carvediloL 6.25 MG TABLET PO SCH ×2 (09:50→18:14)
[2022-05-07] MEDS: MEGESTROL 40 MG TABLET PO SCH ×2 (09:50→21:31)
[2022-05-07] MEDS: CETIRIZINE 10 MG TABLET PO SCH (09:50)
[2022-05-07] MEDS: ASPIRIN EC 81 MG TABLET PO SCH (09:51)
[2022-05-07] MEDS: SERTRALINE 50 MG TABLET PO SCH (09:51)
[2022-05-07] MEDS: PANTOPRAZOLE 40 MG TABLET PO SCH (09:51)
[2022-05-07] MEDS: CRAN VITC MANNOSE FOS BROMELN PO SCH ×2 (11:41→18:14)
[2022-05-07] MEDS: SEVELAMER CARBONATE 800 MG TABLET PO SCH ×3 (11:42→18:14)
[2022-05-07] MEDS: DONEPEZIL 10 MG TABLET PO SCH (21:31)
[2022-05-07] MEDS: FOLIC ACID 1 MG TABLET PO SCH (21:31)
[2022-05-07] MEDS: ROSUVASTATIN 10 MG TABLET PO SCH (21:31)
[2022-05-07] MEDS: MEMANTINE 10 MG TABLET PO SCH (21:31)
[2022-05-07] MEDS: QUEtiapine 100 MG TABLET PO SCH (21:32)
[2022-05-07] MEDS: MIRTAZAPINE 30 MG TABLET PO SCH (21:32)
[2022-05-08 05:10] LABS: Basophils # 0.1 10*3/uL (0.0-0.2); Basophils % 0.7 % (0.0-0.8); Eosinophils # 0.2 10*3/uL (0.0-0.87); Eosinophils % 3.2 % (0.00-10.9); Hematocrit 32.1 VOL% (35.7-47.0); Hemoglobin 10.5 GM/DL (12.0-16.0); Immature Granulocytes Absolute 0.07 #; Lymphocytes # 1.6 10*3/uL (1.4-4.0); Lymphocytes % 21.4 % (21.3-54.2); Mean Corpuscular HGB Conc 32.7 GM/DL (32-36); Mean Corpuscular Volume 87.9 FL (87-102); Mean Platelet Volume 10.8 FL (9.6-12.0); Monocytes # 0.5 10*3/uL (0.11-0.8); Monocytes % 7.3 % (1.7-12.7); Neutrophils % 66.4 % (38.7-73.9); Platelet Count 224 T/CUMM (130-400); Red Blood Count 3.65 MC/CUMM (3.8-5.5); Red Cell Distribution Width 17.9 % (9.3-17.3); White Blood Count 7.3 T/CUMM (4-12)
[2022-05-08 05:23] LABS: Calcium 8.6 MG/DL (8.5-10.1); Osmolality,Calculated 275.7 MOS/KG (273-304); Potassium 3.8 MMOL/L (3.5-5.1)
[2022-05-08] MEDS: ASPIRIN EC 81 MG TABLET PO SCH (10:34)
[2022-05-08] MEDS: INSULIN LISPRO 100 UNIT/ML SUBCUT SCH ×4 (10:34→23:52)
[2022-05-08] MEDS: carvediloL 6.25 MG TABLET PO SCH ×2 (10:35→17:29)
[2022-05-08] MEDS: DOCUSATE SODIUM 100 MG CAPSULE PO SCH ×2 (10:35→17:29)
[2022-05-08] MEDS: CRAN VITC MANNOSE FOS BROMELN PO SCH ×2 (10:35→17:28)
[2022-05-08] MEDS: SEVELAMER CARBONATE 800 MG TABLET PO SCH ×3 (10:35→17:29)
[2022-05-08] MEDS: MEGESTROL 40 MG TABLET PO SCH ×2 (10:35→21:07)
[2022-05-08] MEDS: PANTOPRAZOLE 40 MG TABLET PO SCH (10:36)
[2022-05-08] MEDS: CETIRIZINE 10 MG TABLET PO SCH (10:36)
[2022-05-08] MEDS: LIDOCAINE 2% TOP JELLY 5 ML TUBE TOP SCH ×2 (10:36→23:53)
[2022-05-08] MEDS: SERTRALINE 50 MG TABLET PO SCH (10:36)
[2022-05-08] MEDS ORDERED: hydrALAZINE 20 MG/1 ML VIAL IV PRN (13:11)
[2022-05-08] MEDS: MENTHOL/ZINC OXIDE OINT 71 GM JAR TOP SCH ×2 (14:34→23:52)
[2022-05-08] MEDS: traMADol 50 MG TABLET PO PRN (14:34)
[2022-05-08] MEDS: MIRTAZAPINE 30 MG TABLET PO SCH (21:07)
[2022-05-08] MEDS: ROSUVASTATIN 10 MG TABLET PO SCH (21:07)
[2022-05-08] MEDS: FOLIC ACID 1 MG TABLET PO SCH (21:08)
[2022-05-08] MEDS: DONEPEZIL 10 MG TABLET PO SCH (21:08)
[2022-05-08] MEDS: QUEtiapine 100 MG TABLET PO SCH (21:08)
[2022-05-08] MEDS: MEMANTINE 10 MG TABLET PO SCH (21:08)
[2022-05-08] MEDS: cefTRIAXone 1,000 MG in SODIUM CHLORIDE 0.9% 100 ML IV SCH (23:20)
[2022-05-09 05:25] LABS: Basophils # 0.1 10*3/uL (0.0-0.2); Basophils % 0.7 % (0.0-0.8); Eosinophils # 0.3 10*3/uL (0.0-0.87); Eosinophils % 4.2 % (0.00-10.9); Hematocrit 31.4 VOL% (35.7-47.0); Hemoglobin 9.9 GM/DL (12.0-16.0); Immature Granulocytes % 1.2 %; Immature Granulocytes Absolute 0.09 #; Lymphocytes # 1.5 10*3/uL (1.4-4.0); Lymphocytes % 21.4 % (21.3-54.2); Mean Corpuscular HGB Conc 31.5 GM/DL (32-36); Mean Platelet Volume 10.7 FL (9.6-12.0); Monocytes # 0.6 10*3/uL (0.11-0.8); Monocytes % 8.5 % (1.7-12.7); Platelet Count 227 T/CUMM (130-400); Red Blood Count 3.53 MC/CUMM (3.8-5.5); Red Cell Distribution Width 17.5 % (9.3-17.3); White Blood Count 7.2 T/CUMM (4-12)
[2022-05-09 05:44] LABS: Calcium 8.7 MG/DL (8.5-10.1); Osmolality,Calculated 274.5 MOS/KG (273-304); Potassium 3.6 MMOL/L (3.5-5.1)
[2022-05-09] MEDS: carvediloL 6.25 MG TABLET PO SCH ×2 (09:08→17:00)
[2022-05-09] MEDS: DOCUSATE SODIUM 100 MG CAPSULE PO SCH ×2 (09:08→17:01)
[2022-05-09] MEDS: MEGESTROL 40 MG TABLET PO SCH ×2 (09:08→20:52)
[2022-05-09] MEDS: ASPIRIN EC 81 MG TABLET PO SCH (09:08)
[2022-05-09] MEDS: INSULIN LISPRO 100 UNIT/ML SUBCUT SCH ×4 (09:08→23:35)
[2022-05-09] MEDS: SERTRALINE 50 MG TABLET PO SCH (09:08)
[2022-05-09] MEDS: MENTHOL/ZINC OXIDE OINT 71 GM JAR TOP SCH ×2 (09:08→23:35)
[2022-05-09] MEDS: SEVELAMER CARBONATE 800 MG TABLET PO SCH ×3 (09:08→17:01)
[2022-05-09] MEDS: CETIRIZINE 10 MG TABLET PO SCH (09:08)
[2022-05-09] MEDS: PANTOPRAZOLE 40 MG TABLET PO SCH (09:08)
[2022-05-09] MEDS: CRAN VITC MANNOSE FOS BROMELN PO SCH ×2 (10:35→17:06)
[2022-05-09] MEDS: LIDOCAINE 2% TOP JELLY 5 ML TUBE TOP SCH ×2 (11:29→23:35)
[2022-05-09] MEDS: ROSUVASTATIN 10 MG TABLET PO SCH (20:51)
[2022-05-09] MEDS: MEMANTINE 10 MG TABLET PO SCH (20:51)
[2022-05-09] MEDS: MIRTAZAPINE 30 MG TABLET PO SCH (20:51)
[2022-05-09] MEDS: FOLIC ACID 1 MG TABLET PO SCH (20:51)
[2022-05-09] MEDS: QUEtiapine 100 MG TABLET PO SCH (20:52)
[2022-05-09] MEDS: DONEPEZIL 10 MG TABLET PO SCH (20:52)
[2022-05-09] MEDS: cefTRIAXone 1,000 MG in SODIUM CHLORIDE 0.9% 100 ML IV SCH (23:36)
[2022-05-10] MEDS: INSULIN LISPRO 100 UNIT/ML SUBCUT SCH ×4 (07:30→21:05)
[2022-05-10] MEDS: ASPIRIN EC 81 MG TABLET PO SCH (09:39)
[2022-05-10] MEDS: FERROUS SULFATE 325 MG TABLET PO SCH (09:39)
[2022-05-10] MEDS: DOCUSATE SODIUM 100 MG CAPSULE PO SCH ×2 (09:39→16:18)
[2022-05-10] MEDS: CETIRIZINE 10 MG TABLET PO SCH (09:39)
[2022-05-10] MEDS: SEVELAMER CARBONATE 800 MG TABLET PO SCH ×3 (09:39→16:16)
[2022-05-10] MEDS: MEGESTROL 40 MG TABLET PO SCH ×2 (09:39→21:04)
[2022-05-10] MEDS: carvediloL 6.25 MG TABLET PO SCH ×2 (09:39→16:37)
[2022-05-10] MEDS: MENTHOL/ZINC OXIDE OINT 71 GM JAR TOP SCH ×2 (09:39→21:04)
[2022-05-10] MEDS: SERTRALINE 50 MG TABLET PO SCH (09:39)
[2022-05-10] MEDS: PANTOPRAZOLE 40 MG TABLET PO SCH (09:39)
[2022-05-10] MEDS: CRAN VITC MANNOSE FOS BROMELN PO SCH ×2 (09:47→17:25)
[2022-05-10] MEDS: LIDOCAINE 2% TOP JELLY 5 ML TUBE TOP SCH ×2 (11:12→21:03)
[2022-05-10] MEDS ORDERED: MORPHINE 2 MG/1 ML SYRINGE IV PRN (13:01)
[2022-05-10] MEDS: SODIUM CHLORIDE 0.45% 1,000 ML IV SCH (14:28)
[2022-05-10] MEDS: DEXTROSE 10% 250 ML BAG IV PRN (16:16)
[2022-05-10] MEDS: MEMANTINE 10 MG TABLET PO SCH (21:04)
[2022-05-10] MEDS: FOLIC ACID 1 MG TABLET PO SCH (21:04)
[2022-05-10] MEDS: QUEtiapine 100 MG TABLET PO SCH (21:04)
[2022-05-10] MEDS: MIRTAZAPINE 30 MG TABLET PO SCH (21:04)
[2022-05-10] MEDS: ROSUVASTATIN 10 MG TABLET PO SCH (21:04)
[2022-05-10] MEDS: DONEPEZIL 10 MG TABLET PO SCH (21:04)
[2022-05-10] MEDS: cefTRIAXone 1,000 MG in SODIUM CHLORIDE 0.9% 100 ML IV SCH (21:43)
[2022-05-11 05:18] LABS: Basophils # 0.1 10*3/uL (0.0-0.2); Basophils % 0.9 % (0.0-0.8); Eosinophils # 0.2 10*3/uL (0.0-0.87); Eosinophils % 2.5 % (0.00-10.9); Hematocrit 34.2 VOL% (35.7-47.0); Hemoglobin 10.9 GM/DL (12.0-16.0); Immature Granulocytes Absolute 0.13 #; Lymphocytes # 1.9 10*3/uL (1.4-4.0); Mean Corpuscular HGB Conc 31.9 GM/DL (32-36); Mean Corpuscular Volume 88.6 FL (87-102); Mean Platelet Volume 10.6 FL (9.6-12.0); Monocytes # 0.5 10*3/uL (0.11-0.8); Monocytes % 7.2 % (1.7-12.7); Neutrophils % 58.4 % (38.7-73.9); Platelet Count 255 T/CUMM (130-400); Red Blood Count 3.86 MC/CUMM (3.8-5.5); Red Cell Distribution Width 17.2 % (9.3-17.3); White Blood Count 6.5 T/CUMM (4-12)
[2022-05-11 05:42] LABS: Alanine Aminotransferase < 9 U/L (13-56); Albumin 1.8 G/DL (3.4-5.0); Alkaline Phosphatase 76 U/L (45-117); Aspartate Amino Transferase 17 U/L (0-37); Bilirubin,Total < 0.39 MG/DL (0.20-1.00); Blood Urea Nitrogen 22 MG/DL (7-18); Calcium 8.9 MG/DL (8.5-10.1); Carbon Dioxide 23 MMOL/L (21-32); Chloride 105 MMOL/L (98-107); Glucose 116 MG/DL (74-106); Osmolality,Calculated 273.1 MOS/KG (273-304); Phosphorous 2.4 MG/DL (2.5-4.9); Potassium 4.7 MMOL/L (3.5-5.1); Sodium 135 MMOL/L (136-145); Total Protein 5.4 G/DL (6.4-8.2)
[2022-05-11] MEDS: INSULIN LISPRO 100 UNIT/ML SUBCUT SCH ×3 (07:32→16:25)
[2022-05-11] MEDS: DOCUSATE SODIUM 100 MG CAPSULE PO SCH (08:08)
[2022-05-11] MEDS: SEVELAMER CARBONATE 800 MG TABLET PO SCH ×2 (08:08→12:52)
[2022-05-11] MEDS: ASPIRIN EC 81 MG TABLET PO SCH (08:09)
[2022-05-11] MEDS: SERTRALINE 50 MG TABLET PO SCH (08:09)
[2022-05-11] MEDS: CETIRIZINE 10 MG TABLET PO SCH (08:09)
[2022-05-11] MEDS: MENTHOL/ZINC OXIDE OINT 71 GM JAR TOP SCH (08:09)
[2022-05-11] MEDS: MEGESTROL 40 MG TABLET PO SCH (08:09)
[2022-05-11] MEDS: PANTOPRAZOLE 40 MG TABLET PO SCH (08:09)
[2022-05-11] MEDS: carvediloL 6.25 MG TABLET PO SCH (08:09)
[2022-05-11] MEDS: CRAN VITC MANNOSE FOS BROMELN PO SCH (08:17)
[2022-05-11] MEDS: LIDOCAINE 2% TOP JELLY 5 ML TUBE TOP SCH (08:53)
[2022-05-11 15:26] VITALS: BP 133/61
== END 2022-05-11 16:30 | DRG 239 ==
LOC: EDUNIT# → EDBD → N.ED 13:42 → N.EDINP 13:42 → N.3E 05-02 06:05
PROVIDERS: ADMIT Internal Medicine; ATTEND Internal Medicine

== ENCOUNTER 2022-05-18 14:57 | Inpatient (IN) ==
[2022-05-18] MEDS ORDERED: PIPERACILLIN/TAZOBACTAM 3,375 MG in SODIUM CHLORIDE 0.9% 100 ML IV STA (17:35)
[2022-05-18] MEDS ORDERED: ONDANSETRON 4 MG/2 ML VIAL IV PRN (17:36)
[2022-05-18] MEDS ORDERED: GLUCAGON 1 MG VIAL IM PRN (17:36)
[2022-05-18] MEDS ORDERED: DEXTROSE 10% 250 ML BAG IV PRN (17:47)
[2022-05-18 17:55] LABS: Alanine Aminotransferase < 9 U/L (13-56); Albumin 2.1 G/DL (3.4-5.0); Alkaline Phosphatase 92 U/L (45-117); Aspartate Amino Transferase 15 U/L (0-37); Blood Urea Nitrogen 7 MG/DL (7-18); Calcium 8.9 MG/DL (8.5-10.1); Carbon Dioxide 28 MMOL/L (21-32); Chloride 105 MMOL/L (98-107); Glucose 100 MG/DL (74-106); Osmolality,Calculated 278.3 MOS/KG (273-304); Sodium 141 MMOL/L (136-145)
[2022-05-18] MEDS ORDERED: SODIUM CHLORIDE 0.9% 1,000 ML IV SCH (18:00)
[2022-05-18 18:39] LABS: Basophils % 0.4 % (0.0-0.8); Eosinophils # 0.1 10*3/uL (0.0-0.87); Hematocrit 29.5 VOL% (35.7-47.0); Hemoglobin 9.4 GM/DL (12.0-16.0); Immature Granulocytes % 1.6 %; Immature Granulocytes Absolute 0.15 #; Lymphocytes # 1.6 10*3/uL (1.4-4.0); Lymphocytes % 17.1 % (21.3-54.2); Mean Corpuscular HGB Conc 31.9 GM/DL (32-36); Mean Corpuscular Volume 88.3 FL (87-102); Monocytes # 0.4 10*3/uL (0.11-0.8); Monocytes % 4.6 % (1.7-12.7); Neutrophils % 75.3 % (38.7-73.9); Platelet Count 262 T/CUMM (130-400); Red Blood Count 3.34 MC/CUMM (3.8-5.5); Red Cell Distribution Width 17.6 % (9.3-17.3); White Blood Count 9.2 T/CUMM (4-12)
[2022-05-18 19:01] LABS: INR 1.3
[2022-05-18 19:09] LABS: Partial Thromboplastin Time > 211.8 SECS (23.7-32.9)
[2022-05-18] MEDS: INSULIN LISPRO 100 UNIT/ML SUBCUT SCH (22:05)
[2022-05-19] MEDS: PIPERACILLIN/TAZOBACTAM 3,375 MG in SODIUM CHLORIDE 0.9% 100 ML IV SCH ×3 (02:58→17:47)
[2022-05-19] MEDS: INSULIN LISPRO 100 UNIT/ML SUBCUT SCH ×4 (08:05→20:41)
[2022-05-19] MEDS: ZINC OXIDE PASTE 113 GM TUBE TOP SCH (14:31)
[2022-05-19] MEDS ORDERED: POTASSIUM CHLORIDE 10 MEQ TABLET PO ONE (16:26)
[2022-05-20] MEDS: PIPERACILLIN/TAZOBACTAM 3,375 MG in SODIUM CHLORIDE 0.9% 100 ML IV SCH ×3 (02:07→17:15)
[2022-05-20] MEDS: ZINC OXIDE PASTE 113 GM TUBE TOP SCH ×3 (02:07→22:22)
[2022-05-20 05:37] LABS: Basophils # 0.1 10*3/uL (0.0-0.2); Basophils % 0.7 % (0.0-0.8); Eosinophils # 0.3 10*3/uL (0.0-0.87); Hematocrit 27.7 VOL% (35.7-47.0); Hemoglobin 8.9 GM/DL (12.0-16.0); Immature Granulocytes % 1.4 %; Lymphocytes # 1.5 10*3/uL (1.4-4.0); Lymphocytes % 21.3 % (21.3-54.2); Mean Corpuscular HGB Conc 32.1 GM/DL (32-36); Mean Corpuscular Volume 88.5 FL (87-102); Mean Platelet Volume 11.1 FL (9.6-12.0); Monocytes # 0.5 10*3/uL (0.11-0.8); Monocytes % 7.3 % (1.7-12.7); Neutrophils % 65.3 % (38.7-73.9); Platelet Count 217 T/CUMM (130-400); Red Blood Count 3.13 MC/CUMM (3.8-5.5)
[2022-05-20 05:55] LABS: Calcium 8.9 MG/DL (8.5-10.1); Osmolality,Calculated 290.7 MOS/KG (273-304); Potassium 3.4 MMOL/L (3.5-5.1)
[2022-05-20] MEDS: INSULIN LISPRO 100 UNIT/ML SUBCUT SCH ×5 (09:14→22:21)
[2022-05-20] MEDS ORDERED: HEPARIN 10,000 UNIT/10 ML VIAL IV SCH (15:00)
[2022-05-21] MEDS: PIPERACILLIN/TAZOBACTAM 3,375 MG in SODIUM CHLORIDE 0.9% 100 ML IV SCH ×3 (03:03→19:52)
[2022-05-21 04:41] LABS: Calcium 8.9 MG/DL (8.5-10.1); Osmolality,Calculated 281.3 MOS/KG (273-304); Potassium 3.5 MMOL/L (3.5-5.1)
[2022-05-21] MEDS: INSULIN LISPRO 100 UNIT/ML SUBCUT SCH ×4 (09:27→20:46)
[2022-05-21] MEDS ORDERED: MAGNESIUM HYDROXIDE SUSP 30 ML UDCUP PO PRN (10:41)
[2022-05-21] MEDS ORDERED: ASPIRIN EC 81 MG TABLET PO SCH (10:43)
[2022-05-21] MEDS ORDERED: SERTRALINE 50 MG TABLET PO SCH (10:45)
[2022-05-21] MEDS: cloNIDine 0.1 MG TABLET PO SCH ×3 (16:52→20:45)
[2022-05-21] MEDS: carvediloL 3.125 MG TABLET PO SCH ×2 (16:52→20:45)
[2022-05-21] MEDS: SEVELAMER CARBONATE 800 MG TABLET PO SCH ×3 (17:00→17:04)
[2022-05-21] MEDS: ZINC OXIDE PASTE 113 GM TUBE TOP SCH ×2 (19:52→20:45)
[2022-05-22] MEDS: PIPERACILLIN/TAZOBACTAM 3,375 MG in SODIUM CHLORIDE 0.9% 100 ML IV SCH (03:32)
[2022-05-22 05:35] LABS: Basophils % 0.3 % (0.0-0.8); Eosinophils % 0.3 % (0.00-10.9); Hematocrit 31.9 VOL% (35.7-47.0); Hemoglobin 10.3 GM/DL (12.0-16.0); Immature Granulocytes % 1.2 %; Immature Granulocytes Absolute 0.15 #; Lymphocytes # 1.5 10*3/uL (1.4-4.0); Mean Corpuscular HGB Conc 32.3 GM/DL (32-36); Mean Corpuscular Volume 88.1 FL (87-102); Mean Platelet Volume 11.1 FL (9.6-12.0); Monocytes # 0.4 10*3/uL (0.11-0.8); Neutrophils % 83.2 % (38.7-73.9); Platelet Count 264 T/CUMM (130-400); Red Blood Count 3.62 MC/CUMM (3.8-5.5); Red Cell Distribution Width 18.1 % (9.3-17.3); White Blood Count 12.3 T/CUMM (4-12)
[2022-05-22 05:55] LABS: Calcium 9.7 MG/DL (8.5-10.1); Osmolality,Calculated 278.7 MOS/KG (273-304)
[2022-05-22 13:15] VITALS: BP 124/84
== END 2022-05-22 14:29 | DRG 638 ==
LOC: N.ED 14:57 → N.EDINP 14:57 → N.2W 23:01
PROVIDERS: ADMIT Internal Medicine; ATTEND Internal Medicine

== ENCOUNTER 2022-06-05 17:38 | Inpatient (IN) ==
[2022-06-05] MEDS ORDERED: MORPHINE 10 MG/1 ML VIAL IV STA (18:59)
[2022-06-05] MEDS ORDERED: ONDANSETRON 4 MG/2 ML VIAL IV STA (19:00)
[2022-06-05] MEDS ORDERED: MORPHINE 2 MG/1 ML SYRINGE ONE (19:04)
[2022-06-05 19:38] LABS: Basophils % 0.2 % (0.0-0.8); Eosinophils % 0.1 % (0.00-10.9); Hemoglobin 8.5 GM/DL (12.0-16.0); Immature Granulocytes % 1.2 %; Immature Granulocytes Absolute 0.12 #; Lymphocytes # 1.1 10*3/uL (1.4-4.0); Lymphocytes % 10.2 % (21.3-54.2); Mean Corpuscular HGB Conc 32.7 GM/DL (32-36); Mean Corpuscular Volume 87.5 FL (87-102); Mean Platelet Volume 10.5 FL (9.6-12.0); Monocytes # 0.3 10*3/uL (0.11-0.8); NRBC # 0.08 10*3/uL; Neutrophils % 85.3 % (38.7-73.9); Platelet Count 238 T/CUMM (130-400); Red Blood Count 2.97 MC/CUMM (3.8-5.5); Red Cell Distribution Width 20.7 % (9.3-17.3); White Blood Count 10.3 T/CUMM (4-12)
[2022-06-05 19:49] LABS: INR 1.1; PT Patient Result 11.6 SECS (10.1-12.1); Partial Thromboplastin Time 30.8 SECS (23.7-32.9)
[2022-06-05 19:57] LABS: Albumin 2.1 G/DL (3.4-5.0); Bilirubin,Total 0.5 MG/DL (0.20-1.00); Calcium 8.7 MG/DL (8.5-10.1); Osmolality,Calculated 285.8 MOS/KG (273-304); Total Protein 5.4 G/DL (6.4-8.2)
[2022-06-05 19:59] LABS: Potassium 2.5 MMOL/L (3.5-5.1)
[2022-06-05] MEDS ORDERED: POTASSIUM CHLORIDE 20 MEQ TABLET PO STA (20:05)
[2022-06-05] MEDS ORDERED: ONDANSETRON 4 MG/2 ML VIAL IV PRN (20:23)
[2022-06-05] MEDS ORDERED: MORPHINE 2 MG/1 ML SYRINGE IV PRN (20:26)
[2022-06-05] MEDS: SODIUM CHLOR 0.9% KCL 20 MEQ 20 MEQ/1,000 ML BAG IV SCH (21:30)
[2022-06-06 04:06] LABS: Basophils % 0.1 % (0.0-0.8); Hematocrit 23.5 VOL% (35.7-47.0); Hemoglobin 7.5 GM/DL (12.0-16.0); Immature Granulocytes Absolute 0.07 #; Mean Corpuscular HGB Conc 31.9 GM/DL (32-36); Mean Platelet Volume 10.8 FL (9.6-12.0); Monocytes # 0.3 10*3/uL (0.11-0.8); Monocytes % 3.9 % (1.7-12.7); NRBC # 0.15 10*3/uL; Platelet Count 213 T/CUMM (130-400); Red Blood Count 2.64 MC/CUMM (3.8-5.5); Red Cell Distribution Width 20.9 % (9.3-17.3); White Blood Count 7.1 T/CUMM (4-12)
[2022-06-06] MEDS ORDERED: ALUMINUM/MAGNES/SIMETH MAX STR 30 ML UDCUP PO PRN (06:03)
[2022-06-06] MEDS ORDERED: traMADol 50 MG TABLET PO PRN (06:03)
[2022-06-06] MEDS ORDERED: ACETAMINOPHEN 325 MG TABLET PO PRN (06:03)
[2022-06-06] MEDS ORDERED: GLUCAGON 1 MG VIAL IM PRN (06:03)
[2022-06-06] MEDS ORDERED: BISACODYL 5 MG TABLET PO PRN (06:11)
[2022-06-06 06:27] LABS: Calcium 8.3 MG/DL (8.5-10.1); Osmolality,Calculated 282.1 MOS/KG (273-304); Potassium 3.1 MMOL/L (3.5-5.1)
[2022-06-06] MEDS: SODIUM CHLOR 0.9% KCL 20 MEQ 20 MEQ/1,000 ML BAG IV SCH ×2 (06:29→15:47)
[2022-06-06] MEDS: CETIRIZINE 10 MG TABLET PO SCH (08:31)
[2022-06-06] MEDS: DONEPEZIL 10 MG TABLET PO SCH (08:31)
[2022-06-06] MEDS: ASPIRIN EC 81 MG TABLET PO SCH (08:31)
[2022-06-06] MEDS: FAMOTIDINE 20 MG TABLET PO SCH (08:31)
[2022-06-06] MEDS: carvediloL 3.125 MG TABLET PO SCH (08:31)
[2022-06-06] MEDS: DOCUSATE SODIUM 100 MG CAPSULE PO SCH ×2 (08:45→21:25)
[2022-06-06] MEDS: SERTRALINE 50 MG TABLET PO SCH (10:22)
[2022-06-06] MEDS: SEVELAMER CARBONATE 800 MG TABLET PO SCH ×3 (10:22→17:05)
[2022-06-06] MEDS: busPIRone 5 MG TABLET PO SCH ×2 (10:22→21:22)
[2022-06-06] MEDS: ZINC OXIDE PASTE 113 GM TUBE TOP SCH ×2 (10:35→21:22)
[2022-06-06] MEDS: ROSUVASTATIN 10 MG TABLET PO SCH (21:22)
[2022-06-06] MEDS: MIRTAZAPINE 15 MG TABLET PO SCH (21:22)
[2022-06-07] MEDS: SODIUM CHLOR 0.9% KCL 20 MEQ 20 MEQ/1,000 ML BAG IV SCH ×2 (01:32→14:16)
[2022-06-07] MEDS ORDERED: SODIUM CHLORIDE 0.9% 1,000 ML IV PRN (07:19)
[2022-06-07 07:48] LABS: Calcium 8.4 MG/DL (8.5-10.1); Osmolality,Calculated 286.8 MOS/KG (273-304); Potassium 4.2 MMOL/L (3.5-5.1)
[2022-06-07 07:54] LABS: Basophils % 0.1 % (0.0-0.8); Hematocrit 25.5 VOL% (35.7-47.0); Immature Granulocytes % 1.2 %; Immature Granulocytes Absolute 0.08 #; Lymphocytes # 1.5 10*3/uL (1.4-4.0); Lymphocytes % 22.1 % (21.3-54.2); Mean Corpuscular HGB Conc 31.4 GM/DL (32-36); Mean Corpuscular Volume 92.4 FL (87-102); Mean Platelet Volume 10.6 FL (9.6-12.0); Monocytes # 0.5 10*3/uL (0.11-0.8); Monocytes % 6.9 % (1.7-12.7); NRBC # 0.06 10*3/uL; Neutrophils % 69.7 % (38.7-73.9); Platelet Count 187 T/CUMM (130-400); Red Blood Count 2.76 MC/CUMM (3.8-5.5); Red Cell Distribution Width 21.6 % (9.3-17.3); White Blood Count 6.8 T/CUMM (4-12)
[2022-06-07] MEDS ORDERED: BUPIVACAINE MPF 0.25% 30 ML VIAL ONE (09:25)
[2022-06-07] MEDS ORDERED: DEXAMETHASONE 4 MG/1 ML VIAL ONE (09:25)
[2022-06-07] MEDS ORDERED: LIDOCAINE 1% 5 ML VIAL ONE (09:25)
[2022-06-07] MEDS ORDERED: fentaNYL 100 MCG/2 ML VIAL ONE (09:26)
[2022-06-07] MEDS ORDERED: SODIUM CHLORIDE 0.9% 250 ML IV SCH (09:30)
[2022-06-07] MEDS ORDERED: LIDOCAINE 2% 5 ML VIAL ONE (09:53)
[2022-06-07] MEDS ORDERED: ETOMIDATE 40 MG/20 ML VIAL IV ONE (09:53)
[2022-06-07] MEDS ORDERED: propofoL 200 MG/20 ML VIAL IV ONE (09:53)
[2022-06-07] MEDS ORDERED: ePHEDrine 50 MG/ML VIAL ONE (10:14)
[2022-06-07] MEDS ORDERED: ceFAZolin 1,000 MG VIAL ONE (10:22)
[2022-06-07] MEDS ORDERED: VANCOMYCIN 1,000 MG VIAL ONE (10:24)
[2022-06-07] MEDS ORDERED: SODIUM CHLORIDE 0.9% 250 ML IV ONE (11:00)
[2022-06-07] MEDS ORDERED: ONDANSETRON 4 MG/2 ML VIAL ONE (11:00)
[2022-06-07] MEDS ORDERED: SEVOFLURANE 1 UNIT/15 MINUTE INH ONE (11:11)
[2022-06-07] MEDS ORDERED: hydrALAZINE 20 MG/1 ML VIAL ONE (11:54)
[2022-06-07] MEDS ORDERED: hydrALAZINE 20 MG/1 ML VIAL IV ONE (11:57)
[2022-06-07] MEDS: SEVELAMER CARBONATE 800 MG TABLET PO SCH ×3 (12:39→18:08)
[2022-06-07] MEDS: carvediloL 3.125 MG TABLET PO SCH (12:40)
[2022-06-07] MEDS: ZINC OXIDE PASTE 113 GM TUBE TOP SCH ×2 (12:40→21:18)
[2022-06-07] MEDS: DONEPEZIL 10 MG TABLET PO SCH (13:55)
[2022-06-07] MEDS: SERTRALINE 50 MG TABLET PO SCH (13:55)
[2022-06-07] MEDS: ASPIRIN EC 81 MG TABLET PO SCH (13:55)
[2022-06-07] MEDS: DOCUSATE SODIUM 100 MG CAPSULE PO SCH ×2 (13:56→21:18)
[2022-06-07] MEDS: FAMOTIDINE 20 MG TABLET PO SCH (13:56)
[2022-06-07] MEDS: CETIRIZINE 10 MG TABLET PO SCH (13:56)
[2022-06-07] MEDS: busPIRone 5 MG TABLET PO SCH ×2 (13:56→21:18)
[2022-06-07] MEDS ORDERED: EPOETIN ALFA-EPBX 4,000 UNIT/ML VIAL IV PRN (14:18)
[2022-06-07] MEDS: MIRTAZAPINE 15 MG TABLET PO SCH (21:18)
[2022-06-07] MEDS: ROSUVASTATIN 10 MG TABLET PO SCH (21:18)
[2022-06-08 05:41] LABS: Basophils % 0.2 % (0.0-0.8); Eosinophils % 0.2 % (0.00-10.9); Hematocrit 29.1 VOL% (35.7-47.0); Hemoglobin 9.4 GM/DL (12.0-16.0); Immature Granulocytes % 1.1 %; Immature Granulocytes Absolute 0.07 #; Lymphocytes # 0.9 10*3/uL (1.4-4.0); Lymphocytes % 14.1 % (21.3-54.2); Mean Corpuscular HGB Conc 32.3 GM/DL (32-36); Mean Corpuscular Volume 90.7 FL (87-102); Mean Platelet Volume 10.6 FL (9.6-12.0); Monocytes # 0.5 10*3/uL (0.11-0.8); Monocytes % 8.3 % (1.7-12.7); NRBC # 0.04 10*3/uL; Neutrophils % 76.1 % (38.7-73.9); Platelet Count 134 T/CUMM (130-400); Red Blood Count 3.21 MC/CUMM (3.8-5.5); Red Cell Distribution Width 20.6 % (9.3-17.3); White Blood Count 6.5 T/CUMM (4-12)
[2022-06-08 06:01] LABS: Albumin 1.7 G/DL (3.4-5.0); Bilirubin,Total 0.6 MG/DL (0.20-1.00); Calcium 9.2 MG/DL (8.5-10.1); Osmolality,Calculated 291.7 MOS/KG (273-304); Phosphorous 2.6 MG/DL (2.5-4.9); Potassium 4.4 MMOL/L (3.5-5.1); Total Protein 5.1 G/DL (6.4-8.2)
[2022-06-08] MEDS: SEVELAMER CARBONATE 800 MG TABLET PO SCH ×3 (08:11→16:05)
[2022-06-08] MEDS: CETIRIZINE 10 MG TABLET PO SCH ×2 (13:28→13:43)
[2022-06-08] MEDS: DONEPEZIL 10 MG TABLET PO SCH ×2 (13:28→13:42)
[2022-06-08] MEDS: ASPIRIN EC 81 MG TABLET PO SCH ×2 (13:28→13:42)
[2022-06-08] MEDS: FAMOTIDINE 20 MG TABLET PO SCH ×2 (13:28→13:43)
[2022-06-08] MEDS: DOCUSATE SODIUM 100 MG CAPSULE PO SCH ×3 (13:28→22:27)
[2022-06-08] MEDS: busPIRone 5 MG TABLET PO SCH ×3 (13:28→22:27)
[2022-06-08] MEDS: carvediloL 3.125 MG TABLET PO SCH ×2 (13:28→13:43)
[2022-06-08] MEDS: SERTRALINE 50 MG TABLET PO SCH ×2 (13:28→13:43)
[2022-06-08] MEDS: ZINC OXIDE PASTE 113 GM TUBE TOP SCH ×3 (13:29→22:28)
[2022-06-08] MEDS: SODIUM CHLOR 0.9% KCL 20 MEQ 20 MEQ/1,000 ML BAG IV SCH (13:44)
[2022-06-08] MEDS: cefTRIAXone 1,000 MG in SODIUM CHLORIDE 0.9% 100 ML IV SCH (13:50)
[2022-06-08] MEDS: ROSUVASTATIN 10 MG TABLET PO SCH (22:27)
[2022-06-08] MEDS: MIRTAZAPINE 15 MG TABLET PO SCH (22:28)
[2022-06-09] MEDS: SODIUM CHLOR 0.9% KCL 20 MEQ 20 MEQ/1,000 ML BAG IV SCH (04:20)
[2022-06-09] MEDS: SEVELAMER CARBONATE 800 MG TABLET PO SCH ×2 (08:59→11:38)
[2022-06-09] MEDS: DONEPEZIL 10 MG TABLET PO SCH (08:59)
[2022-06-09] MEDS: ASPIRIN EC 81 MG TABLET PO SCH (09:00)
[2022-06-09] MEDS: carvediloL 3.125 MG TABLET PO SCH (09:00)
[2022-06-09] MEDS: DOCUSATE SODIUM 100 MG CAPSULE PO SCH (09:00)
[2022-06-09] MEDS: busPIRone 5 MG TABLET PO SCH (09:00)
[2022-06-09] MEDS: CETIRIZINE 10 MG TABLET PO SCH (09:01)
[2022-06-09] MEDS: SERTRALINE 50 MG TABLET PO SCH (09:01)
[2022-06-09] MEDS: FAMOTIDINE 20 MG TABLET PO SCH (09:01)
[2022-06-09] MEDS: ZINC OXIDE PASTE 113 GM TUBE TOP SCH ×2 (09:01→09:03)
[2022-06-09 12:22] VITALS: BP 114/74
[2022-06-09] MEDS ORDERED: LIDOCAINE 5% PATCH TRANSDERM SCH (13:40)
[2022-06-09] MEDS: cefTRIAXone 1,000 MG in SODIUM CHLORIDE 0.9% 100 ML IV SCH (13:43)
== END 2022-06-09 14:20 | DRG 480 ==
LOC: EDUNIT# → EDBD → N.ED 17:38 → N.EDINP 20:23 → N.TELES 06-06 09:45
PROVIDERS: ADMIT Emergency Medicine; ATTEND Internal Medicine